=== PATIENT | male | born 1950 | race American Indian/Alaskan Native ===

== ENCOUNTER 2019-09-02 04:56 | Inpatient (IN) | payer MEDICARE ==
[2019-09-02 05:47] LABS: ABG Base Excess -4.4 mmol/L (-2.0-3.0); ABG HCO3 19.2 mmol/L (20.0-26.0); ABG Methemoglobin 0.5 % (0.0-1.5); ABG Oxygen Saturation 97.2 % (95.0-99.0); ABG PCO2 30.6 mm Hg; ABG PH 7.415 pH Units (7.350-7.450); ABG PO2 86.9 mm Hg (80.0-90.0)
[2019-09-02] MEDS ORDERED: SODIUM CHLORIDE 0.9% 1000 ML 1,000 ML IV ONE (06:58)
[2019-09-02] MEDS ORDERED: methylPREDNISolone Sod Succinate 125 MG/2 ML INJ IV ONE (06:58)
[2019-09-02] MEDS ORDERED: MAGNESIUM SULFATE 2 GM/50 ML BAG IV ONE (06:58)
[2019-09-02] MEDS ORDERED: IPRATROPIUM/ALBUTEROL SULFATE 3 ML AMPUL.NEB IH ONE (06:58)
--- NOTE | 2019-09-02 07:57 | XRay Report ---
CHEST 1 VIEW 09/02/2019 6:50 AM INDICATION / CLINICAL INFORMATION: LEAH. COMPARISON: None available. FINDINGS: SUPPORT DEVICES: Left subclavian ICD lead has tip in right ventricle HEART / MEDIASTINUM: Moderately enlarged LUNGS / PLEURA: Bilateral parenchymal disease with several rounded pulmonary opacities the left lung may be infectious/inflammatory, however, neoplasm cannot be excluded. No pneumothorax. ADDITIONAL FINDINGS: No significant additional findings. IMPRESSION: 1. Bilateral pulmonary opacities, some of which appear nodular. Favor pneumonia, however, neoplasm ca nnot be excluded. Chest CT or serial x-ray follow-up recommended Signer Name: Rodolfo Encarnacion MD Signed: 09/02/2019 7:53 AM Workstation Name: [id number]
[2019-09-02 08:08] LABS: Basophils % (Auto) 0.6 % (0.0-1.8); Eosinophils % (Auto) 0.1 % (0.0-4.3); Hematocrit 33.8 % (35.5-45.6); Hemoglobin 10.7 gm/dl (11.8-15.2); Lymphocytes # (Auto) 0.5 K/mm3 (1.2-5.4); Lymphocytes % (Auto) 9.3 % (13.4-35.0); Mean Corpuscular HGB Conc 32 % (32-34); Mean Corpuscular Volume 82 fl (84-94); Monocytes # (Auto) 0.4 K/mm3 (0.0-0.8); Monocytes % (Auto) 6.9 % (0.0-7.3); Platelet Count 208 K/mm3 (140-440); Red Blood Count 4.13 M/mm3 (3.65-5.03); Red Cell Distribution Width 18.1 % (13.2-15.2)
[2019-09-02 08:22] LABS: INR 2.1 (0.87-1.13)
[2019-09-02 08:35] LABS: BUN/Creatinine Ratio 21; Blood Urea Nitrogen 25 mg/dL (9-20); Calcium 9.5 mg/dL (8.4-10.2); Hemolysis Index 0
--- NOTE | 2019-09-02 08:56 | Emergency Department Report ---
ED General Adult HPI - General Chief complaint: Dyspnea/Respdistress Stated complaint: LEAH Time Seen by Provider: 09/02/19 06:55 Source: patient, EMS Mode of arrival: Stretcher Limitations: No Limitations - History of Present Illness Initial comments: This is a 69-year-old man who is a poor historian. However, he can tell me that he is on home nebs and oxygen. He called EMS due to respiratory difficulty. I assume he was on oxygen when they found him to have a pulse oximetry of 88%. They gave him a single albuterol treatment and transported him to this facility. He tells me that he is recently had sputum production which is white in nature. He does not complain of chest pain or fever. He thinks he may have had chills. He did improve with the albuterol treatment. It seems that he is saying that he may have had a recent hospitalization. However he is new to this facility. -: Gradual, hour(s) Associated Symptoms: cough - Related Data Allergies Allergy/AdvReac Type Severity Reaction Status Date / Time No Known Allergies Allergy Unverified 09/02/19 05:22 ED Review of Systems ROS: Stated complaint: LEAH Other details as noted in HPI Constitutional: chills. denies: fever Eyes: denies: eye pain, eye discharge, vision change ENT: denies: ear pain, throat pain Respiratory: denies: cough, shortness of breath, wheezing Cardiovascular: denies: chest pain, palpitations Endocrine: no symptoms reported Gastrointestinal: denies: abdominal pain, nausea, diarrhea Genitourinary: denies: urgency, dysuria Musculoskeletal: denies: back pain, joint swelling, arthralgia Skin: denies: rash, lesions Neurological: denies: headache, weakness, paresthesias Psychiatric: denies: anxiety, depression Hematological/Lymphatic: denies: easy bleeding, easy bruising ED Past Medical Hx - Past Medical History Previous Medical History?: Yes Hx Hypertension: Yes Hx Heart Attack/AMI: Yes Hx Congestive Heart Failure: Yes Hx Diabetes: Yes Hx COPD: Yes Additional medical history: High Cholesterol, Afib, with pacemaker - Surgical History Past Surgical History?: Yes Additional Surgical History: pacemaker - Social History Smoking Status: Former Smoker Substance Use Type: None ED Physical Exam - General Limitations: No Limitations General appearance: alert, in no apparent distress - Head Head exam: Present: atraumatic, normocephalic - Eye Eye exam: Present: normal appearance. Absent: scleral icterus - ENT ENT exam: Present: mucous membranes moist - Neck Neck exam: Present: normal inspection - Respiratory Respiratory exam: Present: decreased breath sounds (Somewhat distant). Absent: respiratory distress, accessory muscle use - Cardiovascular Cardiovascular Exam: Present: regular rate, normal rhythm. Absent: systolic murmur, diastolic murmur, rubs, gallop - GI/Abdominal GI/Abdominal exam: Present: soft, normal bowel sounds. Absent: distended, tenderness, guarding, rebound - Rectal Rectal exam: Present: deferred - Extremities Exam Extremities exam: Present: normal inspection. Absent: calf tenderness - Back Exam Back exam: Present: normal inspection - Neurological Exam Neurological exam: Present: alert, oriented X3 - Psychiatric Psychiatric exam: Present: normal affect, normal mood - Skin Skin exam: Present: warm, dry, intact, normal color. Absent: rash ED Course Vital Signs 09/02/19 09/02/19 09/02/19 05:05 05:13 05:15 Temperature 98.8 F Pulse Rate 88 83 Respiratory 21 16 Rate Blood Pressure 101/66 101/66 Blood Pressure 101/66 [Right] O2 Sat by Pulse 97 97 98 Oximetry 09/02/19 09/02/19 05:18 07:30 Temperature Pulse Rate 64 Respiratory 21 28 H Rate Blood Pressure Blood Pressure 104/62 [Right] O2 Sat by Pulse 2 L 95 Oximetry ED Medical Decision Making - Lab Data Result diagrams: 09/02/19 07:23 09/02/19 09:33 Laboratory Results - last 24 hr 09/02/19 09/02/19 09/02/19 05:30 07:23 07:23 WBC 5.8 RBC 4.13 Hgb 10.7 L Hct 33.8 L MCV 82 L MCH 26 L MCHC 32 RDW 18.1 H Plt Count 208 Lymph % (Auto) 9.3 L [place] % (Auto) 6.9 Eos % (Auto) 0.1 Baso % (Auto) 0.6 Lymph # 0.5 L [place] # 0.4 Eos # 0.0 Baso # 0.0 Seg Neutrophils % 83.1 H Seg Neutrophils # 4.8 PT INR APTT ABG pH 7.415 ABG pCO2 30.6 ABG pO2 86.9 ABG HCO3 19.2 L ABG O2 Saturation 97.2 ABG O2 Content 15.2 ABG Base Excess -4.4 L ABG Hemoglobin 11.3 L ABG Carboxyhemoglobin 2.3 ABG Methemoglobin 0.5 Oxyhemoglobin 94.5 L FiO2 32 Sodium 141 Potassium 5.0 Chloride 106.7 Carbon Dioxide 21 L Anion Gap 18 BUN 25 H Creatinine 1.2 Estimated GFR > 60 BUN/Creatinine Ratio 21 Glucose 119 H Calcium 9.5 Troponin T NT-Pro-B Natriuret Pep 09/02/19 09/02/19 07:23 07:23 WBC RBC Hgb Hct MCV MCH MCHC RDW Plt Count Lymph % (Auto) [place] % (Auto) Eos % (Auto) Baso % (Auto) Lymph # [place] # Eos # Baso # Seg Neutrophils % Seg Neutrophils # PT 23.0 H INR 2.10 H APTT 33.0 ABG pH ABG pCO2 ABG pO2 ABG HCO3 ABG O2 Saturation ABG O2 Content ABG Base Excess ABG Hemoglobin ABG Carboxyhemoglobin ABG Methemoglobin Oxyhemoglobin FiO2 Sodium Potassium Chloride Carbon Dioxide Anion Gap BUN Creatinine Estimated GFR BUN/Creatinine Ratio Glucose Calcium Troponin T < 0.010 NT-Pro-B Natriuret Pep H - EKG Data -: EKG Interpreted by Me EKG shows normal: sinus rhythm, axis, intervals, QRS complexes, ST-T waves Rate: tachycardia - EKG Data Interpretation: no acute changes - Radiology Data Radiology results: report reviewed, image reviewed IMPRESSION: 1. Bilateral pulmonary opacities, some of which appear nodular. Favor pneumonia, however, neoplasm cannot be excluded. Chest CT or serial x-ray follow-up recommended - Medical Decision Making I do agree with the radiologist that the infiltrates are somewhat nodular. However I think COVID infection is on the list as well. The patient is now under investigation. A CT with contrast has been ordered. He was treated empirically with antibiotics and admitted to the hospital service in stable condition. Critical care attestation.: If time is entered above; I have spent that time in minutes in the direct care of this critically ill patient, excluding procedure time. ED Disposition Clinical Impression: Person under investigation for COVID-19 Bilateral pneumonia Qualifiers: Pneumonia type: due to unspecified organism Lung location: unspecified part of lung Qualified Code(s): J18.9 - Pneumonia, unspecified organism Disposition: OP ADMIT IP TO THIS HOSP Is pt being admited?: Yes Does the pt Need Aspirin: Yes Condition: Stable Instructions: Bacterial Pneumonia (ED) Referrals: PRIMARY CARE, [Primary Care Provider] - 3-5 Days Time of Disposition: 12:32
[2019-09-02] MEDS ORDERED: cefTRIAXone/NS 1 GM/50 ML 1 GM/50 ML BAG IV ONE ×2 (08:59→13:58)
[2019-09-02] MEDS ORDERED: AZITHROMYCIN 500 MG in SODIUM CHLORIDE 0.9% 250ML 250 ML IV ONE (09:30)
[2019-09-02 10:57] LABS: Bilirubin,Direct 0.9 mg/dL (0-0.2); C-Reactive Protein 3.8 mg/dL (0.00-1.30)
[2019-09-02] MEDS ORDERED: ASPIRIN 81 MG TAB CHEW PO ONE (12:32)
--- NOTE | 2019-09-02 15:05 | Cat Scan Report ---
CT chest w con INDICATION: infiltrates uncertain origin 100 ML OMNI 300 . TECHNIQUE: All CT scans at this location are performed using the following dose modulation technique: Automated exposure control. Helical slices were obtained through the chest. Intravenous contrast is administere d. 100 cc Omnipaque 300 is administered. COMPARISON: Chest radiograph dated 09/02/2019 FINDINGS: There is a small to moderate right pleural effusion. There are bilateral airspace opacities most prom inent in the right upper lobe there is consolidation. Groundglass opacities are noted bilaterally kenrick undglass opacities are prominent in the lower lobes. The heart is enlarged. There is mediastinal matias opathy. Enlarged right paratracheal, left periaortic, left paratracheal subcarinal lymph nodes. No acute abnormality is seen in the upper abdomen. There is a small pericardial effusion in the right . IMPRESSION: There are bilateral airspace opacities with cardiomegaly and right pleural effusion. All these findin gs could be related to congestive heart failure. However there is a consolidation with patchy groundg lass opacities. Therefore, the possibility this represents a pneumonia including viral pneumonia is m ore strongly considered. There is mediastinal adenopathy is not specific. These may be reactive nodes. The largest measures ap proximately 14 mm in the short axis right paratracheal location. Signer Name: Torey Cooper MD Signed: 09/02/2019 3:00 PM Workstation Name: [id number]
[2019-09-02] MEDS ORDERED: LORazepam 2 MG/ML VIAL IV ONE (18:07)
[2019-09-02] MEDS ORDERED: LORazepam 2 MG/ML VIAL ONE (18:13)
--- NOTE | 2019-09-03 00:03 | History and Physical Report ---
History of Present Illness Date of examination: 09/02/19 Date of admission: 09/02/19 13:27 Chief complaint: Shortness of breath for 2 days History of present illness: 69-year-old man with history of COPD on home oxygen called EMS for increasing shortness of breath. His O2 sats were 88% on 2 L nasal cannula oxygen. Patient was given albuterol treatment with no relief. Patient also has been having cough with mucoid sputum production. No fever or chills. No exposure to coronavirus. No exacerbating or relieving factors. Past Medical History Previous Medical History?: Yes Hx Hypertension: Yes Hx Heart Attack/AMI: Yes Hx Congestive Heart Failure: Yes Hx Diabetes: Yes Hx COPD: Yes Additional medical history: High Cholesterol, Afib, with pacemaker Surgical History Past Surgical History?: Yes Additional Surgical History: pacemaker Social History Smoking Status: Former Smoker Substance Use Type: None Family history Htn Review of Systems ROS: Stated complaint: LEAH Other details as noted in HPI Constitutional: chills. denies: fever Eyes: denies: eye pain, eye discharge, vision change ENT: denies: ear pain, throat pain Respiratory: denies: cough, shortness of breath, wheezing Cardiovascular: denies: chest pain, palpitations Endocrine: no symptoms reported Gastrointestinal: denies: abdominal pain, nausea, diarrhea Genitourinary: denies: urgency, dysuria Musculoskeletal: denies: back pain, joint swelling, arthralgia Skin: denies: rash, lesions Neurological: denies: headache, weakness, paresthesias Psychiatric: denies: anxiety, depression Hematological/Lymphatic: denies: easy bleeding, easy bruising Medications and Allergies Allergies Allergy/AdvReac Type Severity Reaction Status Date / Time No Known Allergies Allergy Unverified 09/02/19 05:22 Exam - Constitutional Vitals: Temp Pulse Resp BP Pulse Ox 98.8 F 88 22 134/88 96 09/02/19 05:13 09/02/19 17:32 09/02/19 17:32 09/02/19 17:32 09/02/19 17:32 General appearance: Present: mild distress, well-nourished - EENT Eyes: Present: PERRL ENT: hearing intact, clear oral mucosa - Neck Neck: Present: supple, normal ROM - Respiratory Respiratory effort: normal Respiratory: bilateral: diminished, rales, rhonchi - Cardiovascular Heart rate: 82 Rhythm: regular Heart Sounds: Present: S1 & S2. Absent: rub, click - Extremities Extremities: no ischemia, pulses intact, pulses symmetrical, No edema Peripheral Pulses: within normal limits - Abdominal General gastrointestinal: Present: soft, non-tender, non-distended, normal bowel sounds Male genitourinary: Present: normal - Integumentary Integumentary: Present: clear, warm, dry - Musculoskeletal Musculoskeletal: gait normal, strength equal bilaterally - Psychiatric Psychiatric: appropriate mood/affect, intact judgment & insight - Neurologic Neurologic: CNII-XII intact, moves all extremities - Allied Health Allied health notes reviewed: nursing, case management HEART Score - HEART Score Troponin: Troponin T < 0.010 ng/mL (0.00-0.029) 09/02/19 07:23 Results - Labs CBC & Chem 7: 09/03/19 04:25 09/03/19 00:47 Labs: Laboratory Last Values WBC 5.8 K/mm3 (4.5-11.0) 09/02/19 07:23 RBC 4.13 M/mm3 (3.65-5.03) 09/02/19 07:23 Hgb 10.7 gm/dl (11.8-15.2) L 09/02/19 07:23 Hct 33.8 % (35.5-45.6) L 09/02/19 07:23 MCV 82 fl (84-94) L 09/02/19 07:23 MCH 26 pg (28-32) L 09/02/19 07:23 MCHC 32 % (32-34) 09/02/19 07:23 RDW 18.1 % (13.2-15.2) H 09/02/19 07:23 Plt Count 208 K/mm3 (140-440) 09/02/19 07:23 Lymph % (Auto) 9.3 % (13.4-35.0) L 09/02/19 07:23 [place] % (Auto) 6.9 % (0.0-7.3) 09/02/19 07:23 Eos % (Auto) 0.1 % (0.0-4.3) 09/02/19 07:23 Baso % (Auto) 0.6 % (0.0-1.8) 09/02/19 07:23 Lymph # 0.5 K/mm3 (1.2-5.4) L 09/02/19 07:23 [place] # 0.4 K/mm3 (0.0-0.8) 09/02/19 07:23 Eos # 0.0 K/mm3 (0.0-0.4) 09/02/19 07:23 Baso # 0.0 K/mm3 (0.0-0.1) 09/02/19 07:23 Seg Neutrophils % 83.1 % (40.0-70.0) H 09/02/19 07:23 Seg Neutrophils # 4.8 K/mm3 (1.8-7.7) 09/02/19 07:23 PT 23.0 Sec. (12.2-14.9) H 09/02/19 07: INR 2.10 (0.87-1.13) H 09/02/19 07: APTT 33.0 Sec. (24.2-36.6) 09/02/19 07:23 D-Dimer 689.74 ng/mlDDU (0-234) H 09/02/19 Unknown ABG pH 7.415 pH Units (7.350-7.450) 09/02/19 05:30 ABG pCO2 30.6 mm Hg 09/02/19 05:30 ABG pO2 86.9 mm Hg (80.0-90.0) 09/02/19 05:30 ABG HCO3 19.2 mmol/L (20.0-26.0) L 09/02/19 05:30 ABG O2 Saturation 97.2 % (95.0-99.0) 09/02/19 05:30 ABG O2 Content 15.2 (0.0-44) 09/02/19 05:30 ABG Base Excess -4.4 mmol/L (-2.0-3.0) L 09/02/19 05:30 ABG Hemoglobin 11.3 gm/dl (14.0-18.0) L 09/02/19 05:30 ABG Carboxyhemoglobin 2.3 % (0.0-5.0) 09/02/19 05:30 ABG Methemoglobin 0.5 % (0.0-1.5) 09/02/19 05:30 Oxyhemoglobin 94.5 % (95.0-99.0) L 09/02/19 05:30 FiO2 32 % 09/02/19 05:30 Sodium 141 mmol/L (137-145) 09/02/19 07:23 Potassium 5.0 mmol/L (3.6-5.0) 09/02/19 07:23 Chloride 106.7 mmol/L (98-107) 09/02/19 07:23 Carbon Dioxide 21 mmol/L (22-30) L 09/02/19 07:23 Anion Gap 18 mmol/L 09/02/19 07:23 BUN 25 mg/dL (9-20) H 09/02/19 07:23 Creatinine 1.2 mg/dL (0.8-1.5) 09/02/19 07:23 Estimated GFR > 60 ml/min 09/02/19 07:23 BUN/Creatinine Ratio 21 % 09/02/19 07:23 Glucose 123 mg/dL (75-100) H 09/02/19 09:33 Lactic Acid 1.90 mmol/L (0.7-2.0) 09/02/19 09:33 Calcium 9.5 mg/dL (8.4-10.2) 09/02/19 07:23 Ferritin 252.7 ng/mL (13.0-400.0) 09/02/19 09:33 Total Bilirubin 3.00 mg/dL (0.1-1.2) H 09/02/19 09:33 Direct Bilirubin 0.9 mg/dL (0-0.2) H 09/02/19 09:33 Indirect Bilirubin 2.1 mg/dL 09/02/19 09:33 AST 43 units/L (5-40) H 09/02/19 09:33 ALT 53 units/L (7-56) 09/02/19 09:33 Alkaline Phosphatase 116 units/L (35-129) 09/02/19 09:33 Lactate Dehydrogenase 252 units/L (91-180) H 09/02/19 09:33 Troponin T < 0.010 ng/mL (0.00-0.029) 09/02/19 07:23 C-Reactive Protein 3.80 mg/dL (0.00-1.30) H 09/02/19 09:33 NT-Pro-B Natriuret Pep 21917 pg/mL (0-900) H 09/02/19 07:23 Total Protein 6.6 g/dL (6.3-8.2) 09/02/19 09:33 Albumin 3.0 g/dL (3.9-5) L 09/02/19 09:33 Albumin/Globulin Ratio 0.8 % 09/02/19 09:33 Procalcitonin < 0.05 ng/mL (<0.15) 09/02/19 09:33 Short CBC 09/02/19 Range/Units 07:23 WBC 5.8 (4.5-11.0) K/mm3 Hgb 10.7 L (11.8-15.2) gm/dl Hct 33.8 L (35.5-45.6) % Plt Count 208 (140-440) K/mm3 [facility] 09/02/19 09/02/19 07:23 09:33 Sodium 141 Potassium 5.0 Chloride 106.7 Carbon Dioxide 21 L BUN 25 H Creatinine 1.2 Glucose 119 H 123 H Calcium 9.5 Cardiac Enzymes 09/02/19 Range/Units 07: Troponin T < 0.010 (0.00-0.029) ng/mL Liver Function 09/02/19 Range/Units 09:33 Total Bilirubin 3.00 H (0.1-1.2) mg/dL Direct Bilirubin 0.9 H (0-0.2) mg/dL AST 43 H (5-40) units/L ALT 53 (7-56) units/L Alkaline Phosphatase 116 (35-129) units/L Albumin 3.0 L (3.9-5) g/dL Short CBC 09/02/19 09/03/19 Range/Units 07:23 04:25 WBC 5.8 5.0 (4.5-11.0) K/mm3 Hgb 10.7 L 11.2 L (11.8-15.2) gm/dl Hct 33.8 L 35.5 (35.5-45.6) % Plt Count 208 201 (140-440) K/mm3 [facility] 09/02/19 09/02/19 09/03/19 07:23 09:33 00:47 Sodium 141 135 L Potassium 5.0 4.4 Chloride 106.7 104.6 Carbon Dioxide 21 L 20 L BUN 25 H 27 H Creatinine 1.2 1.0 Glucose 119 H 123 H 157 H Calcium 9.5 9.2 Cardiac Enzymes 09/02/19 Range/Units 07:23 Troponin T < 0.010 (0.00-0.029) ng/mL Liver Function 09/02/19 09/03/19 Range/Units 09:33 00:47 Total Bilirubin 3.00 H 1.70 H (0.1-1.2) mg/dL Direct Bilirubin 0.9 H (0-0.2) mg/dL AST 43 H 29 (5-40) units/L ALT 53 41 (7-56) units/L Alkaline Phosphatase 116 92 (35-129) units/L Albumin 3.0 L 2.5 L (3.9-5) g/dL Microbiology: Microbiology 09/02/19 Unknown Peripheral/Venous Blood Culture - Preliminary Culture in Progress 09/02/19 Unknown Peripheral/Venous Blood Culture - Preliminary Culture in Progress - Imaging and Cardiology EKG: report reviewed Imaging and Cardiology: Chest x-ray Bilateral pulmonary opacities some of, which tappear nodular Favor pneumonia however neoplasm cannot be excluded Chest CT or serial x-ray follow-up recommended CT chest There are bilateral airspace opacities With cardiomegaly and right pleural effusion. All these findings could be related to congestive heart failure. However there is a consolidation with patchy groundglass opacities. Therefore the possibility this represents a pneumonia including viral pneumonia is most commonly considered. There is mediastinal adenopathy which is nonspecific. This may be reactive nodes. The largest measures approximately 14 mm in the short axis and right paratracheal location. Assessment and Plan Advance Directives: Yes (Full code) VTE prophylaxis?: Chemical Plan of care discussed with patient/family: Yes - Patient Problems (1) Bilateral pneumonia Current Visit: Yes Status: Acute Qualifiers: Pneumonia type: due to unspecified organism Lung location: unspecified part of lung Qualified Code(s): J18.9 - Pneumonia, unspecified organism Plan to address problem: Patient initiated on IV Rocephin and Zithromax Duo nebs Coronavirus to be ruled out Bilateral pneumonia Inflammatory markers ordered (2) Person under investigation for COVID-19 Current Visit: Yes Status: Acute Plan to address problem: Coronavirus PCR 4 AM (3) COPD exacerbation Current Visit: Yes Status: Acute Plan to address problem: Duo nebs and steroids and IV antibiotics (4) Hypertension Current Visit: Yes Status: Chronic Qualifiers: Hypertension type: essential hypertension Qualified Code(s): I10 - Essential (primary) hypertension Plan to address problem: Continue antihypertensives and adjust medications as necessary (5) CHF (congestive heart failure) Current Visit: Yes Status: Chronic Qualifiers: Heart failure type: combined systolic and diastolic Heart failure chronicity: chronic Qualified Code(s): I50.42 - Chronic combined systolic (congestive) and diastolic (congestive) heart failure Plan to address problem: Continue Lasix (6) Type 2 diabetes mellitus Current Visit: Yes Status: Chronic Qualifiers: Diabetes mellitus fpc insulin use: unspecified fpc insulin use status Plan to address problem: Accu-Cheks AC at bedtime and moderate dose sliding scale coverage Check hemoglobin A1c (7) Coronary artery disease Current Visit: Yes Status: Chronic Qualifiers: Coronary Disease-Associated Artery/Lesion type: [place] artery [place] vs. transplanted heart: [place] heart Plan to address problem: Continue Plavix (8) DVT prophylaxis Current Visit: Yes Status: Acute Plan to address problem: On Lovenox 40 mg subcu every 24 and GI prophylaxis
[2019-09-03] MEDS ORDERED: HYDROmorphone 1 MG/1 ML INJ IV PRN (00:06)
[2019-09-03] MEDS ORDERED: oxyCODONE /ACETAMINOPHEN 5-325MG TAB PO PRN (00:06)
[2019-09-03] MEDS ORDERED: ONDANSETRON 4 MG/2 ML INJ IV PRN (00:06)
[2019-09-03] MEDS ORDERED: AZITHROMYCIN 500 MG in SODIUM CHLORIDE 0.9% 250ML 250 ML IV SCH (00:10)
[2019-09-03] MEDS ORDERED: dexAMETHasone 4 MG/ML VIAL IV SCH (01:00)
[2019-09-03] MEDS ORDERED: POTASSIUM CHLORIDE ER 20 MEQ TAB PO SCH (01:00)
[2019-09-03 01:36] LABS: Alanine Aminotransferase 41 units/L (7-56); Albumin 2.5 g/dL (3.9-5); BUN/Creatinine Ratio 27; Blood Urea Nitrogen 27 mg/dL (9-20); Calcium 9.2 mg/dL (8.4-10.2); Hemolysis Index 1
[2019-09-03 04:43] LABS: Basophils % (Auto) 0.1 % (0.0-1.8); Hematocrit 35.5 % (35.5-45.6); Hemoglobin 11.2 gm/dl (11.8-15.2); Lymphocytes # (Auto) 0.4 K/mm3 (1.2-5.4); Lymphocytes % (Auto) 8.3 % (13.4-35.0); Mean Corpuscular HGB Conc 31 % (32-34); Mean Corpuscular Volume 83 fl (84-94); Monocytes # (Auto) 0.1 K/mm3 (0.0-0.8); Monocytes % (Auto) 2.5 % (0.0-7.3); Platelet Count 201 K/mm3 (140-440); Red Cell Distribution Width 17.9 % (13.2-15.2)
[2019-09-03] MEDS: FUROSEMIDE 40 MG/4 ML INJ IV SCH ×2 (06:30→18:54)
[2019-09-03] MEDS ORDERED: FUROSEMIDE 40 MG/4 ML INJ ONE ×2 (06:52→18:41)
[2019-09-03] MEDS ORDERED: cefTRIAXone/NS 2 GM/100 ML 2 GM/100 ML BAG IV ONE (09:24)
[2019-09-03] MEDS ORDERED: DEXAMETHASONE 4 MG TAB ONE (09:25)
[2019-09-03] MEDS ORDERED: LOSARTAN 50 MG TAB ONE (09:25)
[2019-09-03] MEDS ORDERED: FAMOTIDINE 20 MG TAB ONE ×2 (09:25→22:15)
[2019-09-03] MEDS ORDERED: oxyCODONE /ACETAMINOPHEN 5-325MG TAB ONE (09:26)
[2019-09-03] MEDS: INSULIN LISPRO 100 UNIT/ML SUB-Q SCH ×4 (09:36→22:21)
[2019-09-03] MEDS: LOSARTAN 50 MG TAB PO SCH (09:36)
[2019-09-03] MEDS: DEXAMETHASONE 4 MG TAB PO SCH (09:37)
[2019-09-03] MEDS: FAMOTIDINE 20 MG TAB PO SCH ×2 (09:37→22:21)
[2019-09-03] MEDS: cefTRIAXone/NS 2 GM/100 ML 2 GM/100 ML BAG IV SCH (10:48)
[2019-09-03] MEDS ORDERED: INSULIN REGULAR, HUMAN 100 UNITS/1 ML ONE (12:21)
--- NOTE | 2019-09-03 12:38 | Progress Note ---
Assessment and Plan Assessment and plan: --COVID 19 test negative -- Bilateral pneumonia Current Visit: Yes Status: Acute Continue IV Rocephin and Zithromax Duo nebs, COVID-19 negative Oxygen titrate O2 sats to more than 90% --PUI/ COVID-19 test negative Current Visit: Yes Status: Acute Coronavirus PCR negative --Acute exacerbation of COPD ; Current Visit: Yes Status: Acute Duo nebs and steroids and IV antibiotics Oxygen titrate O2 sats to more than 90% Home oxygen evaluation at discharge -- Hypertension Current Visit: Yes Status: Chronic Continue antihypertensives and PRN antihypertensives --Acute on chronic CHF,unknown ejection fraction Current Visit: Yes Status: Chronic Continue Lasix input output monitoring,, low-sodium diet Fluid restriction, echocardiogram for LV function ejection fraction --Type 2 diabetes mellitus Current Visit: Yes Status: Chronic Accu-Cheks adding scale coverage ADA diet insulin as needed, A1c; 6.2 --Coronary artery disease Current Visit: Yes Status: Chronic Continue current cardiac medications --DVT prophylaxis Current Visit: Yes Status: Acute On Lovenox 40 mg subcu every 24 and GI prophylaxis Monitor closely and adjust the management as needed Plan of care reviewed with the patient and his nurse Possible discharge in 1 to 2 days if stable History Interval history: Patient seen and examined at the bedside in the ER awaiting room assignment Isolation precautions and PPE protocols followed Patient is PUI, high suspicion for COVID-19, novoa virus PCR test sent, pending report Patient complains of mild shortness of breath and generalized weakness In mild distress Vital signs noted Hospitalist Physical - Constitutional Vitals: Temp Pulse Resp BP Pulse Ox 98.8 F 81 16 107/70 94 09/02/19 05:13 09/03/19 10:30 09/03/19 10:30 09/03/19 09:36 09/03/19 10:30 General appearance: Present: mild distress, well-nourished - EENT Eyes: Present: PERRL, EOM intact - Neck Neck: Present: supple, normal ROM - Respiratory Respiratory effort: normal Respiratory: bilateral: diminished, rales, negative: rhonchi, wheezing - Cardiovascular Rhythm: regular Heart Sounds: Present: S1 & S2 - Extremities Extremities: no ischemia, No edema - Abdominal General gastrointestinal: soft, non-tender, non-distended, normal bowel sounds - Integumentary Integumentary: Present: clear, warm - Psychiatric Psychiatric: appropriate mood/affect, cooperative - Neurologic Neurologic: moves all extremities HEART Score - HEART Score Troponin: Troponin T < 0.010 ng/mL (0.00-0.029) 09/02/19 07:23 Results - Labs CBC & Chem 7: 09/04/19 03:26 09/04/19 03:26 Labs: Laboratory Last Values WBC 5.0 K/mm3 (4.5-11.0) 09/03/19 04:25 RBC 4.30 M/mm3 (3.65-5.03) 09/03/19 04:25 Hgb 11.2 gm/dl (11.8-15.2) L 09/03/19 04:25 Hct 35.5 % (35.5-45.6) 09/03/19 04:25 MCV 83 fl (84-94) L 09/03/19 04:25 MCH 26 pg (28-32) L 09/03/19 04:25 MCHC 31 % (32-34) L 09/03/19 04:25 RDW 17.9 % (13.2-15.2) H 09/03/19 04:25 Plt Count 201 K/mm3 (140-440) 09/03/19 04:25 Lymph % (Auto) 8.3 % (13.4-35.0) L 09/03/19 04:25 [place]oshone % (Auto) 2.5 % (0.0-7.3) 09/03/19 04:25 Eos % (Auto) 0.0 % (0.0-4.3) 09/03/19 04:25 Baso % (Auto) 0.1 % (0.0-1.8) 09/03/19 04:25 Lymph # 0.4 K/mm3 (1.2-5.4) L 09/03/19 04:25 Shoshone # 0.1 K/mm3 (0.0-0.8) 09/03/19 04:25 Eos # 0.0 K/mm3 (0.0-0.4) 09/03/19 04:25 Baso # 0.0 K/mm3 (0.0-0.1) 09/03/19 04:25 Seg Neutrophils % 89.1 % (40.0-70.0) H 09/03/19 04:25 Seg Neutrophils # 4.4 K/mm3 (1.8-7.7) 09/03/19 04:25 PT 23.0 Sec. (12.2-14.9) H 09/02/19 07:23 INR 2.10 (0.87-1.13) H 09/02/19 07:23 APTT 33.0 Sec. (24.2-36.6) 09/02/19 07:23 D-Dimer 689.74 ng/mlDDU (0-234) H 09/02/19 Unknown ABG pH 7.415 pH Units (7.350-7.450) 09/02/19 05:30 ABG pCO2 30.6 mm Hg 09/02/19 05:30 ABG pO2 86.9 mm Hg (80.0-90.0) 09/02/19 05:30 ABG HCO3 19.2 mmol/L (20.0-26.0) L 09/02/19 05:30 ABG O2 Saturation 97.2 % (95.0-99.0) 09/02/19 05:30 ABG O2 Content 15.2 (0.0-44) 09/02/19 05:30 ABG Base Excess -4.4 mmol/L (-2.0-3.0) L 09/02/19 05:30 ABG Hemoglobin 11.3 gm/dl (14.0-18.0) L 09/02/19 05:30 ABG Carboxyhemoglobin 2.3 % (0.0-5.0) 09/02/19 05:30 ABG Methemoglobin 0.5 % (0.0-1.5) 09/02/19 05:30 Oxyhemoglobin 94.5 % (95.0-99.0) L 09/02/19 05:30 FiO2 32 % 09/02/19 05:30 Sodium 135 mmol/L (137-145) L 09/03/19 00:47 Potassium 4.4 mmol/L (3.6-5.0) 09/03/19 00:47 Chloride 104.6 mmol/L (98-107) 09/03/19 00:47 Carbon Dioxide 20 mmol/L (22-30) L 09/03/19 00:47 Anion Gap 15 mmol/L 09/03/19 00:47 BUN 27 mg/dL (9-20) H 09/03/19 00:47 Creatinine 1.0 mg/dL (0.8-1.5) 09/03/19 00:47 Estimated GFR > 60 ml/min 09/03/19 00:47 BUN/Creatinine Ratio 27 % 09/03/19 00:47 Glucose 157 mg/dL (75-100) H 09/03/19 00:47 POC Glucose 125 (70-105) H 09/03/19 09:46 Hemoglobin A1c 6.2 % (4-6) H 09/03/19 04:25 Lactic Acid 1.90 mmol/L (0.7-2.0) 09/02/19 09:33 Calcium 9.2 mg/dL (8.4-10.2) 09/03/19 00:47 Ferritin 252.7 ng/mL (13.0-400.0) 09/02/19 09:33 Total Bilirubin 1.70 mg/dL (0.1-1.2) H 09/03/19 00:47 Direct Bilirubin 0.9 mg/dL (0-0.2) H 09/02/19 09:33 Indirect Bilirubin 2.1 mg/dL 09/02/19 09:33 AST 29 units/L (5-40) 09/03/19 00:47 ALT 41 units/L (7-56) 09/03/19 00:47 Alkaline Phosphatase 92 units/L (35-129) 09/03/19 00:47 Lactate Dehydrogenase 252 units/L (91-180) H 09/02/19 09:33 Troponin T < 0.010 ng/mL (0.00-0.029) 09/02/19 07:23 C-Reactive Protein 3.80 mg/dL (0.00-1.30) H 09/02/19 09:33 NT-Pro-B Natriuret Pep 83961 pg/mL (0-900) H 09/02/19 07:23 Total Protein 6.8 g/dL (6.3-8.2) 09/03/19 00:47 Albumin 2.5 g/dL (3.9-5) L 09/03/19 00:47 Albumin/Globulin Ratio 0.6 % 09/03/19 00:47 Procalcitonin < 0.05 ng/mL (<0.15) 09/02/19 09:33 Microbiology: Microbiology 09/02/19 Unknown Peripheral/Venous Blood Culture - Preliminary NO GROWTH AFTER 24 HOURS 09/02/19 Unknown Peripheral/Venous Blood Culture - Preliminary NO GROWTH AFTER 24 HOURS Estevez/IV: IV Catheter Type [Right Peripheral IV Forearm] IV Catheter Type [Left Peripheral IV Antecubital] Active Medications - Current Medications Current Medications: Generic Name Dose Route Start Last Admin Trade Name Freq PRN Reason Stop Dose Admin Acetaminophen 650 mg 09/03/19 00:06 Tylenol PO Q4H PRN Pain MILD(1-3)/Fever >100.5/BLANKENSHIP Azithromycin 500 mg 09/03/19 22:00 Zithromax PO QHS BANDAR Dexamethasone 6 mg 09/03/19 10:00 09/03/19 09:37 Decadron PO 6 mg DAILY BANDAR Administration Enoxaparin Sodium 40 mg 09/03/19 22:00 Enoxaparin SUB-Q QDAY@2200 BANDAR Famotidine 20 mg 09/03/19 10:00 09/03/19 09:37 Pepcid PO 20 mg BID BANDAR Administration Furosemide 40 mg 09/03/19 06:00 09/03/19 06:30 Lasix IV 40 mg 0600,1800 BANDAR Administration Hydromorphone HCl 0.5 mg 09/03/19 00:06 Dilaudid IV Q3H PRN Pain , Severe (7-10) Ceftriaxone Sodium 2 gm in 100 mls @ 200 mls/hr 09/03/19 10:00 09/03/19 11:18 Rocephin/Ns 2 Gm/100 Ml IV Infused Q24HR [facility] Infusion Protocol Insulin Human Lispro 0 unit 09/03/19 08:00 09/03/19 12:32 Humalog SUB-Q 2 unit ACHS BANDAR Administration Protocol Losartan Potassium 50 mg 09/03/19 10:00 09/03/19 09:36 Cozaar PO 50 mg QDAY BANDAR Administration Ondansetron HCl 4 mg 09/03/19 00:06 Zofran IV Q8H PRN Nausea And Vomiting Oxycodone/Acetaminophen 1 tab 09/03/19 00:06 09/03/19 09:37 Percocet 5/325 PO 1 tab Q6H PRN Administration Pain, Moderate (4-6) Potassium Chloride 20 meq 09/03/19 01:00 K-Dur PO Q12H ABNDAR Sodium Chloride 10 ml 09/03/19 10:00 09/03/19 10:48 Sodium Chloride Flush Syringe 10 Ml IV 10 ml BID BANDAR Administration Sodium Chloride 10 ml 09/03/19 00:06 Sodium Chloride Flush Syringe 10 Ml IV PRN PRN LINE FLUSH
[2019-09-03] MEDS ORDERED: INSULIN LISPRO 100 UNIT/ML SUB-Q ONE ×2 (16:21→22:13)
[2019-09-03] MEDS ORDERED: ENOXAPARIN 40 MG/0.4 ML INJ SUB-Q SCH (22:00)
[2019-09-03] MEDS ORDERED: AZITHROMYCIN 250 MG TAB ONE (22:15)
[2019-09-03] MEDS ORDERED: ENOXAPARIN 40 MG/0.4 ML INJ SUB-Q ONE (22:15)
[2019-09-03] MEDS: AZITHROMYCIN 250 MG TAB PO SCH (22:21)
[2019-09-04 05:00] LABS: Hematocrit 35.8 % (35.5-45.6); Hemoglobin 11.3 gm/dl (11.8-15.2); Mean Corpuscular HGB Conc 32 % (32-34); Mean Corpuscular Volume 82 fl (84-94); Platelet Count 223 K/mm3 (140-440); Red Blood Count 4.35 M/mm3 (3.65-5.03); Red Cell Distribution Width 18.4 % (13.2-15.2)
[2019-09-04] MEDS ORDERED: FUROSEMIDE 40 MG/4 ML INJ ONE ×2 (05:10→08:29)
[2019-09-04 05:19] LABS: BUN/Creatinine Ratio 29; Blood Urea Nitrogen 38 mg/dL (9-20); Hemolysis Index 0
[2019-09-04] MEDS: FUROSEMIDE 40 MG/4 ML INJ IV SCH ×2 (05:23→19:23)
[2019-09-04 06:18] LABS: Basophils % (Manual) 0 % (0.0-1.8); Eosinophils % (Manual) 0 % (0.0-4.3); Total Cells Counted 100
[2019-09-04 06:19] LABS: Anisocytosis 2+; Burr Cells 1+; Ovalocytes 2+; Poikilocytosis 3+
[2019-09-04 06:20] LABS: Schistocytes Few
[2019-09-04 06:21] LABS: Helmet Cells Few; Platelet Estimate Consistent w Auto
[2019-09-04] MEDS ORDERED: AMIODARONE 150 MG/3 ML INJ IV ONE ×2 (06:44→06:51)
[2019-09-04] MEDS ORDERED: AMIODARONE 150 MG in DEXTROSE 5% IN WATER 100 ML IV ONE (06:46)
[2019-09-04] MEDS ORDERED: AMIODARONE 900 MG in DEXTROSE 5% IN WATER 482 ML IV SCH (07:00)
[2019-09-04] MEDS ORDERED: FUROSEMIDE 40 MG/4 ML INJ IV ONE (07:04)
--- NOTE | 2019-09-04 07:08 | Event Note ---
Date: 09/04/19 69-year-old man who is an ER hold. I was called to assist nurses in his care. He was found to be in recurrent ventricular tachycardia. He has an AICD which has been firing. Patient was not in distress. He was bit tachypneic. Examination revealed runs of sustained V. tach. Patient was experiencing automatic cardioversion. He did look pale. Were unable to obtain a blood pressure but he had a strong radial pulse. The patient was given 150 mg of amiodarone. He was placed on amiodarone drip. He was placed in a critical care management area on a nonrebreather mask. I requested a [employer] interrogation of his pacemaker. I obtained a chest x-ray which was consistent with pulmonary edema. Patient was given an additional 20 mg of Lasix beyond this current dose. On reexamination the patient is maintaining a sinus rhythm largely. An EKG has been ordered. He is now clinically stable. Diagnostic impression Recurrent sustained ventricular tachycardia Congestive heart failure Plan Further care per hospitalist, cardiology, inpatient physicians. I am available should the patient have further critical care needs. Critical care time with this patient is 45 minutes.
--- NOTE | 2019-09-04 07:19 | XRay Report ---
CHEST 1 VIEW 09/04/2019 6:51 AM INDICATION / CLINICAL INFORMATION: VTach. COMPARISON: 09/02/2019 FINDINGS: SUPPORT DEVICES: Left subclavian ICD lead again projects over right ventricle HEART / MEDIASTINUM: Moderate cardiomegaly LUNGS / PLEURA: Multifocal moderate bilateral parenchymal disease, unchanged No pneumothorax. ADDITIONAL FINDINGS: No significant additional findings. IMPRESSION: 1. Cardiomegaly and moderate bilateral parenchymal disease characteristic for pneumonia, unchanged Signer Name: Rodolfo Encarnacion MD Signed: 09/04/2019 7:15 AM Workstation Name: [id number]
[2019-09-04] MEDS ORDERED: AMIODARONE 150 MG in DEXTROSE 5% IN WATER 97 ML IV ONE (07:30)
--- NOTE | 2019-09-04 08:41 | Progress Note ---
Assessment and Plan Assessment and plan: --COVID 19 test negative --Sustained VT; Patient was asymptomatic Amiodarone bolus followed by amiodarone drip per ER physician Continue home medications, Cardiology consult --Acute hypoxic respiratory failure: Multifactorial, CHF, COPD exacerbation BiPAP as needed, intubate if no improvement Pulmonary consult, informed Dr. Parmar Stat ABG --Acute on chronic systolic CHF, EF 15 to 20% Current Visit: Yes Status: Chronic Continue Lasix input output monitoring,, low-sodium diet Fluid restriction, echocardiogram for LV function ejection fraction. --History of A. fib; continue beta-blockers, amiodarone chronic anticoagulation with Eliquis --Severe cardiomyopathy/ICD Interrogation as needed, cardiology consulted, -- Bilateral pneumonia Current Visit: Yes Status: Acute . Continue IV Rocephin and Zithromax Duo nebs, COVID-19 negative Oxygen titrate O2 sats to more than 90%. --PUI/ COVID-19 test negative Current Visit: Yes Status: Acute Coronavirus PCR negative --Acute exacerbation of COPD ; Current Visit: Yes Status: Acute Duo nebs and steroids and IV antibiotics Oxygen titrate O2 sats to more than 90% Home oxygen evaluation at discharge -- Hypertension Current Visit: Yes Status: Chronic Continue antihypertensives and PRN antihypertensives --Type 2 diabetes mellitus Current Visit: Yes Status: Chronic Accu-Cheks adding scale coverage ADA diet insulin as needed, A1c; 6.2 --Coronary artery disease Current Visit: Yes Status: Chronic Continue current cardiac medications --DVT prophylaxis Current Visit: Yes Status: Acute On Eliquis --Full code: Status We will closely monitor the patient and adjust management as needed Patient has multiple comorbidities, poor prognosis The high probability of a clinically significant, sudden or life threatening deterioration of the [cardiac , infectious, metabolic and pulmonary] system(s) required my full and direct attention, intervention and personal management. The aggregate critical care time was [45] minutes. This time is in addition to time spent performing reported procedures but includes the following: [x] Data Review and interpretation [x] Patient assessment and monitoring of vital signs [x] Documentation [x] Medication orders and management History Interval history: I have seen the patient at bedside this morning Patient's chart overnight events reviewed Patient went into sustained VT, received amiodarone bolus And on amiodarone drip per ER physician Patient is short of breath, hypoxic in mild distress Vital signs reviewed Hospitalist Physical - Constitutional Vitals: Temp Pulse Resp BP Pulse Ox 98.4 F 91 H 41 H 116/77 88 09/04/19 01:45 09/04/19 06:31 09/04/19 06:31 09/04/19 06:31 09/04/19 06:31 General appearance: Present: mild distress, well-nourished, other (Agitated) - EENT Eyes: Present: PERRL, EOM intact - Neck Neck: Present: supple, normal ROM - Respiratory Respiratory effort: normal Respiratory: bilateral: diminished, rales, negative: rhonchi, wheezing - Cardiovascular Rhythm: regular Heart Sounds: Present: S1 & S2 - Extremities Extremities: no ischemia Extremity abnormal: edema (Trace) - Abdominal General gastrointestinal: soft, non-tender, non-distended, normal bowel sounds - Integumentary Integumentary: Present: clear, warm - Psychiatric Psychiatric: agitated - Neurologic Neurologic: moves all extremities HEART Score - HEART Score Troponin: Troponin T < 0.010 ng/mL (0.00-0.029) 09/02/19 07:23 Results - Labs CBC & Chem 7: 09/04/19 03:26 09/04/19 03:26 Labs: Laboratory Last Values WBC 11.3 K/mm3 (4.5-11.0) H 09/04/19 03:26 RBC 4.35 M/mm3 (3.65-5.03) 09/04/19 03:26 Hgb 11.3 gm/dl (11.8-15.2) L 09/04/19 03:26 Hct 35.8 % (35.5-45.6) 09/04/19 03:26 MCV 82 fl (84-94) L 09/04/19 03:26 MCH 26 pg (28-32) L 09/04/19 03:26 MCHC 32 % (32-34) 09/04/19 03:26 RDW 18.4 % (13.2-15.2) H 09/04/19 03:26 Plt Count 223 K/mm3 (140-440) 09/04/19 03:26 Lymph % (Auto) 8.3 % (13.4-35.0) L 09/03/19 04:25 [place] % (Auto) 2.5 % (0.0-7.3) 09/03/19 04:25 Eos % (Auto) 0.0 % (0.0-4.3) 09/03/19 04:25 Baso % (Auto) 0.1 % (0.0-1.8) 09/03/19 04:25 Lymph # 0.4 K/mm3 (1.2-5.4) L 09/03/19 04:25 [place] # 0.1 K/mm3 (0.0-0.8) 09/03/19 04:25 Eos # 0.0 K/mm3 (0.0-0.4) 09/03/19 04:25 Baso # 0.0 K/mm3 (0.0-0.1) 09/03/19 04:25 Add Manual Diff Complete 09/04/19 03:26 Total Counted 100 09/04/19 03:26 Seg Neutrophils % [employer]argo Specialist 09/04/19 03:26 Seg Neuts % (Manual) 90.0 % (40.0-70.0) H 09/04/19 03:26 Band Neutrophils % 0 % 09/04/19 03:26 Lymphocytes % (Manual) 4.0 % (13.4-35.0) L 09/04/19 03:26 Reactive Lymphs % (Man) 0 % 09/04/19 03:26 Monocytes % (Manual) 6.0 % (0.0-7.3) 09/04/19 03:26 Eosinophils % (Manual) 0 % (0.0-4.3) 09/04/19 03:26 Basophils % (Manual) 0 % (0.0-1.8) 09/04/19 03:26 Metamyelocytes % 0 % 09/04/19 03:26 Myelocytes % 0 % 09/04/19 03:26 Promyelocytes % 0 % 09/04/19 03:26 Blast Cells % 0 % 09/04/19 03:26 Nucleated RBC % Not Reportable 09/04/19 03:26 Seg Neutrophils # 4.4 K/mm3 (1.8-7.7) 09/03/19 04:25 Seg Neutrophils # Man 10.2 K/mm3 (1.8-7.7) H 09/04/19 03:26 Band Neutrophils # 0.0 K/mm3 09/04/19 03:26 Lymphocytes # (Manual) 0.5 K/mm3 (1.2-5.4) L 09/04/19 03:26 Abs React Lymphs (Man) 0.0 K/mm3 09/04/19 03:26 Monocytes # (Manual) 0.7 K/mm3 (0.0-0.8) 09/04/19 03:26 Eosinophils # (Manual) 0.0 K/mm3 (0.0-0.4) 09/04/19 03:26 Basophils # (Manual) 0.0 K/mm3 (0.0-0.1) 09/04/19 03:26 Metamyelocytes # 0.0 K/mm3 09/04/19 03:26 Myelocytes # 0.0 K/mm3 09/04/19 03:26 Promyelocytes # 0.0 K/mm3 09/04/19 03:26 Blast Cells # 0.0 K/mm3 09/04/19 03:26 WBC Morphology Not Reportable 09/04/19 03:26 Hypersegmented Neuts Not Reportable 09/04/19 03:26 Hyposegmented Neuts Not Reportable 09/04/19 03:26 Hypogranular Neuts Not Reportable 09/04/19 03:26 Smudge Cells Not Reportable 09/04/19 03:26 Toxic Granulation Not Reportable 09/04/19 03:26 Toxic Vacuolation Not Reportable 09/04/19 03:26 Dohle Bodies Not Reportable 09/04/19 03:26 Pelger-Huet Anomaly Not Reportable 09/04/19 03:26 Shirley Rods Not Reportable 09/04/19 03:26 Platelet Estimate Consistent w auto 09/04/19 03:26 Clumped Platelets Not Reportable 09/04/19 03:26 Plt Clumps, EDTA Not Reportable 09/04/19 03:26 Large Platelets Not Reportable 09/04/19 03:26 Giant Platelets Not Reportable 09/04/19 03:26 Platelet Satelliting Not Reportable 09/04/19 03:26 Plt Morphology Comment Not Reportable 09/04/19 03:26 RBC Morphology Not Reportable 09/04/19 03:26 Dimorphic RBCs Not Reportable 09/04/19 03:26 Polychromasia Not Reportable 09/04/19 03:26 Hypochromasia Not Reportable 09/04/19 03:26 Poikilocytosis 3+ 09/04/19 03:26 Anisocytosis 2+ 09/04/19 03:26 Microcytosis Not Reportable 09/04/19 03:26 Macrocytosis Not Reportable 09/04/19 03:26 Spherocytes Not Reportable 09/04/19 03:26 Pappenheimer Bodies Not Reportable 09/04/19 03:26 Sickle Cells Not Reportable 09/04/19 03:26 Target Cells Not Reportable 09/04/19 03:26 Tear Drop Cells Not Reportable 09/04/19 03:26 Ovalocytes 2+ 09/04/19 03:26 Helmet Cells Few 09/04/19 03:26 [place] Bodies Not Reportable 09/04/19 03:26 [place] Rings Not Reportable 09/04/19 03:26 [place] Cells 1+ 09/04/19 03:26 Bite Cells Not Reportable 09/04/19 03:26 Crenated Cell Not Reportable 09/04/19 03:26 Elliptocytes 2+ 09/04/19 03:26 Acanthocytes (Spur) Not Reportable 09/04/19 03:26 Rouleaux Not Reportable 09/04/19 03:26 Hemoglobin C Crystals Not Reportable 09/04/19 03:26 Schistocytes Few 09/04/19 03:26 Malaria parasites Not Reportable 09/04/19 03:26 Tera Bodies Not Reportable 09/04/19 03:26 Hem Pathologist Commnt No 09/04/19 03:26 PT 23.0 Sec. (12.2-14.9) H 09/02/19 07:23 INR 2.10 (0.87-1.13) H 09/02/19 07:23 APTT 33.0 Sec. (24.2-36.6) 09/02/19 07:23 D-Dimer 689.74 ng/mlDDU (0-234) H 09/02/19 Unknown ABG pH 7.415 pH Units (7.350-7.450) 09/02/19 05:30 ABG pCO2 30.6 mm Hg 09/02/19 05:30 ABG pO2 86.9 mm Hg (80.0-90.0) 09/02/19 05:30 ABG HCO3 19.2 mmol/L (20.0-26.0) L 09/02/19 05:30 ABG O2 Saturation 97.2 % (95.0-99.0) 09/02/19 05:30 ABG O2 Content 15.2 (0.0-44) 09/02/19 05:30 ABG Base Excess -4.4 mmol/L (-2.0-3.0) L 09/02/19 05:30 ABG Hemoglobin 11.3 gm/dl (14.0-18.0) L 09/02/19 05:30 ABG Carboxyhemoglobin 2.3 % (0.0-5.0) 09/02/19 05:30 ABG Methemoglobin 0.5 % (0.0-1.5) 09/02/19 05:30 Oxyhemoglobin 94.5 % (95.0-99.0) L 09/02/19 05:30 FiO2 32 % 09/02/19 05:30 Sodium 137 mmol/L (137-145) 09/04/19 03:26 Potassium 4.9 mmol/L (3.6-5.0) 09/04/19 03:26 Chloride 102.9 mmol/L (98-107) 09/04/19 03:26 Carbon Dioxide 21 mmol/L (22-30) L 09/04/19 03:26 Anion Gap 18 mmol/L 09/04/19 03:26 BUN 38 mg/dL (9-20) H 09/04/19 03:26 Creatinine 1.3 mg/dL (0.8-1.5) 09/04/19 03:26 Estimated GFR > 60 ml/min 09/04/19 03:26 BUN/Creatinine Ratio 29 % 09/04/19 03:26 Glucose 126 mg/dL (75-100) H 09/04/19 03:26 POC Glucose 238 (70-105) H 09/03/19 22:17 Hemoglobin A1c 6.2 % (4-6) H 09/03/19 04:25 Lactic Acid 1.90 mmol/L (0.7-2.0) 09/02/19 09:33 Calcium 10.0 mg/dL (8.4-10.2) 09/04/19 03:26 Ferritin 252.7 ng/mL (13.0-400.0) 09/02/19 09:33 Total Bilirubin 1.70 mg/dL (0.1-1.2) H 09/03/19 00:47 Direct Bilirubin 0.9 mg/dL (0-0.2) H 09/02/19 09:33 Indirect Bilirubin 2.1 mg/dL 09/02/19 09:33 AST 29 units/L (5-40) 09/03/19 00:47 ALT 41 units/L (7-56) 09/03/19 00:47 Alkaline Phosphatase 92 units/L (35-129) 09/03/19 00:47 Lactate Dehydrogenase 252 units/L (91-180) H 09/02/19 09:33 Troponin T < 0.010 ng/mL (0.00-0.029) 09/02/19 07:23 C-Reactive Protein 3.80 mg/dL (0.00-1.30) H 09/02/19 09:33 NT-Pro-B Natriuret Pep 26124 pg/mL (0-900) H 09/02/19 07:23 Total Protein 6.8 g/dL (6.3-8.2) 09/03/19 00:47 Albumin 2.5 g/dL (3.9-5) L 09/03/19 00:47 Albumin/Globulin Ratio 0.6 % 09/03/19 00:47 Procalcitonin < 0.05 ng/mL (<0.15) 09/02/19 09:33 Coronavirus (PCR) Negative (Negative) 09/02/19 Unknown Microbiology: Microbiology 09/02/19 Unknown Peripheral/Venous Blood Culture - Preliminary NO GROWTH AFTER 24 HOURS 09/02/19 Unknown Peripheral/Venous Blood Culture - Preliminary NO GROWTH AFTER 24 HOURS - Diagnostic Impressions Diagnostic Impressions: Echocardiogram 09/03/19 00:18 Transthoracic Echocardiogram Indication: Dyspnea BP: 102/57 HR: 98 Conclusions *Severe, 4-chamber dilated cardiomyopathy. *Global left ventricular systolic function is severely decreased. *The estimated ejection fraction is Less Than 15-20%. *Mild concentric left ventricular hypertrophy is observed. *There is mild aortic regurgitation. *There is mild to moderate mitral regurgitation. *There is at least moderate tricuspid regurgitation. *There is moderately-severe pulmonary hypertension. *The right ventricular systolic pressure is calculated at 61 mmHg. *A pacemaker wire is visualized in the right jeart chambers. Findings Left Ventricle: The left ventricular chamber size is severely dilated. Mild concentric left ventricular hypertrophy is observed. Global left ventricular systolic function is severely decreased. The estimated ejection fraction is 15-20%. Left Atrium: The left atrium is severely dilated. Right Ventricle: The right ventricle is moderate to severely dilated. The right ventricular global systolic function is severely reduced. A pacemaker wire is visualized in the right ventricle. Right Atrium: The right atrium is moderately dilated. A pacemaker wire is visualized in the right atrium. Aortic Valve: The aortic valve is trileaflet. The aortic valve leaflets are mildly thickened. There is mild aortic regurgitation. There is no evidence of aortic stenosis. The mean gradient of the aortic valve is 1.87 mmHg. Mitral Valve: The mitral valve leaflets are mildly thickened. There is mild to moderate mitral regurgitation. There is no evidence of mitral stenosis. Tricuspid Valve: There is moderate tricuspid regurgitation. The right ventricular systolic pressure is calculated at 61 mmHg. There is evidence of severe pulmonary hypertension. Pulmonic Valve: There is mild pulmonic regurgitation. Pericardium: There is no pericardial effusion. Aorta: There is no dilatation of the ascending aorta. There is no dilatation of the aortic root. Venous: The inferior vena cava is dilated. Measurements Chambers 2D Name Value Normal Range IVSd (2D) 0.83 cm (0.6 - 1.1) LVPWd (2D) 0.89 cm (0.6 - 1.1) LVIDd (2D) 6.97 cm (3.7 - 5.6) LVIDs (2D) 6.29 cm (2 - 3.8) LV FS (2D) 9.75 % - EF Teichholz (2D) 20.75 % - Ao root diameter (2D) 3.18 cm (2 - 3.7) Volumes/Mass Name Value Normal Range LA ESV SP 4CH (A/L) 102.95 ml - LA ESV SP 2CH (A/L) 148.69 ml - LA ESV BP (A/L) 128.54 ml - LA ESV BP (A/L) index 69.86 ml/m2 - LA ESV SP 4CH (MOD) 97.53 ml - LA ESV SP 2CH (MOD) 134.72 ml - LA ESV BP (MOD) 118.72 ml - LA ESV BP (MOD) index 64.52 ml/m2 - LV EDV SP 4CH (MOD) 265.95 ml - LV ESV SP 4CH (MOD) 198.9 ml - EF SP 4CH (MOD) 25.21 % - LV EDV SP 2CH (MOD) 240.8 ml - LV ESV SP 2CH (MOD) 201.36 ml - EF SP 2CH (MOD) 16.38 % - LV EDV BP 254.43 ml - LV ESV BP 204.99 ml - BP EF (MOD) 19.43 % - Diastolic/Systolic Function Name Value Normal Range MV E-wave Vmax 0.86 m/sec - MV deceleration time 172.86 msec - MV A-wave Vmax 0.44 m/sec - MV E:A ratio 1.94 ratio - Aortic Valve Name Value Normal Range AV Vmax 0.87 m/sec - AV VTI 17.36 cm - AV peak gradient 3.03 mmHg - AV mean gradient 1.87 mmHg - LVOT diameter 2.15 cm - LVOT Vmax 0.79 m/sec - LVOT VTI 10.29 cm - LVOT peak gradient 2.53 mmHg - LVOT mean gradient 1.07 mmHg - SV LVOT 37.26 ml - CHARLES (continuity Vmax) 3.31 cm2 - CHARLES (continuity VTI) 2.15 cm2 - AR PHT 930.2 msec - AR peak gradient 33.96 mmHg - Ascending Ao 3.39 cm - Mitral Valve Name Value Normal Range MV Vmax 0.95 m/sec - MV VTI 20.87 cm - MV peak gradient 3.65 mmHg - MV mean gradient 1.09 mmHg - MV PHT 58.55 msec - MVA (PHT) 3.76 cm2 - MVA (continuity VTI) 1.79 cm2 - Tricuspid Valve Name Value Normal Range TR Vmax 3.65 m/sec - TR peak gradient 53 mmHg - RAP 8 mmHg - RVSP 61 mmHg - IVC diameter 2.47 cm (1.2 - 2.3) Pulmonic Valve/Qp:Qs Name Value Normal Range PV Vmax 0.77 m/sec - PV VTI 15.61 cm - PV peak gradient 2.38 mmHg - PV mean gradient 1.17 mmHg - OR end-diastolic Vmax 1.4 m/sec - RVOT Vmax 0.56 m/sec - RVOT VTI 9.24 cm - RVOT peak gradient 1.27 mmHg - Estevez/IV: IV Catheter Type [Right Peripheral IV Forearm] IV Catheter Type [Left Peripheral IV Antecubital] Active Medications - Current Medications Current Medications: Generic Name Dose Route Start Last Admin Trade Name Freq PRN Reason Stop Dose Admin Acetaminophen 650 mg 09/03/19 00:06 Tylenol PO Q4H PRN Pain MILD(1-3)/Fever >100.5/BLANKENSHIP Amiodarone HCl 200 mg 09/04/19 10:00 Cordarone PO DAILY BANDAR Apixaban 5 mg 09/04/19 10:00 Eliquis PO DAILY BANDAR Protocol Azithromycin 500 mg 09/03/19 22:00 09/03/19 22:21 Zithromax PO 500 mg QHS BANDAR Administration Dexamethasone 6 mg 09/03/19 10:00 09/03/19 09:37 Decadron PO 6 mg DAILY BANDAR Administration Enoxaparin Sodium 40 mg 09/03/19 22:00 09/03/19 22:20 Enoxaparin SUB-Q 40 mg QDAY@2200 BANDAR Administration Famotidine 20 mg 09/03/19 10:00 09/03/19 22:21 Pepcid PO 20 mg BID BANDAR Administration Finasteride 5 mg 09/04/19 10:00 Proscar PO DAILY BANDAR Furosemide 40 mg 09/03/19 06:00 09/04/19 05:23 Lasix IV 40 mg 0600,1800 BANDAR Administration Hydromorphone HCl 0.5 mg 09/03/19 00:06 Dilaudid IV Q3H PRN Pain , Severe (7-10) Ceftriaxone Sodium 2 gm in 100 mls @ 200 mls/hr 09/03/19 10:00 09/03/19 11:18 Rocephin/Ns 2 Gm/100 Ml IV Infused Q24HR BANDAR Infusion Protocol Amiodarone HCl 900 mg/ 500 mls @ 33.333 mls/hr 09/04/19 07:00 Dextrose IV DIRECT BANDAR Protocol 1 MG/MIN Insulin Human Lispro 0 unit 09/03/19 08:00 09/03/19 22:21 Humalog SUB-Q 3 unit ACHS BANDAR Administration Protocol Lisinopril 10 mg 09/04/19 10:00 Zestril PO DAILY BANDAR Losartan Potassium 50 mg 09/03/19 10:00 09/03/19 09:36 Cozaar PO 50 mg QDAY BANDAR Administration Metoprolol Succinate 50 mg 09/04/19 10:00 Metoprolol Xl PO DAILY BANDAR Ondansetron HCl 4 mg 09/03/19 00:06 Zofran IV Q8H PRN Nausea And Vomiting Oxycodone/Acetaminophen 1 tab 09/03/19 00:06 09/03/19 09:37 Percocet 5/325 PO 1 tab Q6H PRN Administration Pain, Moderate (4-6) Potassium Chloride 20 meq 09/03/19 01:00 K-Dur PO Q12H BANDAR Sertraline HCl 50 mg 09/04/19 10:00 Zoloft PO QDAY BANDAR Sodium Chloride 10 ml 09/03/19 10:00 09/03/19 22:21 Sodium Chloride Flush Syringe 10 Ml IV 10 ml BID BANDAR Administration Sodium Chloride 10 ml 09/03/19 00:06 Sodium Chloride Flush Syringe 10 Ml IV PRN PRN LINE FLUSH
[2019-09-04] MEDS ORDERED: FUROSEMIDE 40 MG/4 ML INJ IV NR (09:38)
[2019-09-04] MEDS ORDERED: AMIODARONE 200 MG TAB PO SCH (10:00)
[2019-09-04] MEDS ORDERED: METOPROLOL SUCCINATE XL 50 MG TAB PO SCH (10:00)
[2019-09-04] MEDS: INSULIN LISPRO 100 UNIT/ML SUB-Q SCH ×4 (10:09→23:38)
[2019-09-04] MEDS: LISINOPRIL 10 MG TAB PO SCH ×2 (10:11→11:43)
[2019-09-04] MEDS: SERTRALINE 50 MG TAB PO SCH ×2 (10:11→11:40)
[2019-09-04] MEDS ORDERED: DEXAMETHASONE 4 MG TAB ONE (10:33)
[2019-09-04] MEDS ORDERED: FAMOTIDINE 20 MG TAB ONE (10:33)
[2019-09-04] MEDS ORDERED: SERTRALINE 50 MG TAB ONE (10:33)
[2019-09-04] MEDS ORDERED: LISINOPRIL 10 MG TAB ONE (10:34)
[2019-09-04] MEDS ORDERED: APIXABAN 5 MG TAB ONE (10:34)
[2019-09-04] MEDS ORDERED: LOSARTAN 50 MG TAB ONE (10:35)
[2019-09-04] MEDS ORDERED: METOPROLOL SUCCINATE XL 100 MG TAB PO ONE (10:35)
[2019-09-04] MEDS ORDERED: cefTRIAXone/NS 2 GM/100 ML 2 GM/100 ML BAG IV ONE (10:37)
[2019-09-04 11:19] LABS: ABG Base Excess -6.7 mmol/L (-2.0-3.0); ABG HCO3 18.2 mmol/L (20.0-26.0); ABG Methemoglobin 0.6 % (0.0-1.5); ABG Oxygen Saturation 97.8 % (95.0-99.0); ABG PCO2 34.1 mm Hg; ABG PH 7.345 pH Units (7.350-7.450); ABG PO2 106.7 mm Hg (80.0-90.0)
[2019-09-04] MEDS: FINASTERIDE 5 MG TAB PO SCH (11:39)
[2019-09-04] MEDS: APIXABAN 5 MG TAB PO SCH (11:40)
[2019-09-04] MEDS: LOSARTAN 50 MG TAB PO SCH (11:40)
[2019-09-04] MEDS: FAMOTIDINE 20 MG TAB PO SCH ×2 (11:40→22:57)
[2019-09-04] MEDS: DEXAMETHASONE 4 MG TAB PO SCH (11:41)
[2019-09-04] MEDS: cefTRIAXone/NS 2 GM/100 ML 2 GM/100 ML BAG IV SCH (11:41)
[2019-09-04] MEDS ORDERED: ONDANSETRON 4 MG/2 ML INJ ONE (12:57)
[2019-09-04] MEDS ORDERED: HYDROmorphone 1 MG/1 ML INJ ONE ×2 (12:57→19:48)
--- NOTE | 2019-09-04 13:53 | Consultation ---
History of Present Illness Consult date: 09/04/19 Consult reason: cardiac arrest, congestive heart failure History of present illness: The patient is a 69-year-old man with a severe dilated cardiomyopathy, and a cardiac defibrillator in situ. He is a poor historian unable to provide details of his prior cardiac work-up and his primary outpatient senior sales associate. He presented to the emergency room with shortness of breath and fatigue, chest x- ray on presentation showed bilateral pulmonary infiltrates consistent with acute pulmonary edema. In the emergency room he was started on diuretic therapy, and a COVID-19 test was also done that reported negative. While still in the emergency room, he suddenly developed sustained ventricular tachycardia prompting repeated firing of his defibrillator. His rhythm eventually stabilized with the administration of intravenous amiodarone. The sinus ECG showed no acute changes except for occasional PVCs. Laboratory exam showed a normal magnesium of 2.2, and a normal potassium of 4.9. Most notably on his laboratory values was an INR elevated at 2.1. The patient is reported to be on Eliquis therapy, and not warfarin. Indication cannot be confirmed by the patient but presumably paroxysmal atrial fibrillation. His home medication therapy also includes amiodarone 200 mg orally. 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 Past History Past Medical History: atrial fib, heart failure Medications and Allergies Allergies Allergy/AdvReac Type Severity Reaction Status Date / Time No Known Allergies Allergy Unverified 09/02/19 05:22 Home Medications Medication Instructions Recorded Confirmed Last Taken Type Amiodarone [Cordarone 200 MG TAB] 200 mg PO DAILY 09/03/19 09/03/19 Unknown History Apixaban [Eliquis] 5 mg PO DAILY 09/03/19 09/03/19 Unknown History Finasteride 5 mg PO DAILY 09/03/19 09/03/19 Unknown History Furosemide [Lasix TAB] 20 mg PO DAILY 09/03/19 09/03/19 Unknown History Metoprolol Xl [Metoprolol 50 mg PO DAILY 09/03/19 09/03/19 Unknown History SUCCINATE ER TAB] Sertraline [Zoloft] 50 mg PO QDAY 09/03/19 09/03/19 Unknown History lisinopriL [Zestril TAB] 10 mg PO DAILY 09/03/19 09/03/19 Unknown History Active Meds: Active Medications Acetaminophen (Tylenol) 650 mg PO Q4H PRN PRN Reason: Pain MILD(1-3)/Fever >100.5/[place] Amiodarone HCl (Cordarone) 200 mg PO DAILY [facility] Last Admin: 09/04/19 11:40 Dose: 200 mg Documented by: Apixaban (Eliquis) 5 mg PO DAILY [facility]; Protocol Last Admin: 09/04/19 11:40 Dose: 5 mg Documented by: Azithromycin (Zithromax) 500 mg PO QHS [facility] Last Admin: 09/03/19 22:21 Dose: 500 mg Documented by: Dexamethasone (Decadron) 6 mg PO DAILY [facility] Last Admin: 09/04/19 11:41 Dose: 6 mg Documented by: Famotidine (Pepcid) 20 mg PO BID [facility] Last Admin: 09/04/19 11:40 Dose: 20 mg Documented by: Finasteride (Proscar) 5 mg PO DAILY [facility] Last Admin: 09/04/19 11:39 Dose: 5 mg Documented by: Furosemide (Lasix) 40 mg IV 0600,1800 [facility] Last Admin: 09/04/19 05:23 Dose: 40 mg Documented by: Hydromorphone HCl (Dilaudid) 0.5 mg IV Q3H PRN PRN Reason: Pain , Severe (7-10) Ceftriaxone Sodium (Rocephin/Ns 2 Gm/100 Ml) 2 gm in 100 mls @ 200 mls/hr IV Q24HR [facility]; Protocol Last Admin: 09/04/19 11:41 Dose: 200 mls/hr Documented by: Amiodarone HCl 900 mg/ (Dextrose) 500 mls @ 33.333 mls/hr IV DIRECT [facility]; Protocol Last Admin: 09/04/19 08:00 Dose: 1 mg/min, 33.333 mls/hr Documented by: Insulin Human Lispro (Humalog) 0 unit SUB-Q ACHS [facility]; Protocol Last Admin: 09/04/19 10:09 Dose: Not Given Documented by: Lisinopril (Zestril) 10 mg PO DAILY [facility] Last Admin: 09/04/19 11:43 Dose: 10 mg Documented by: Losartan Potassium (Cozaar) 50 mg PO QDAY [facility] Last Admin: 09/04/19 11:40 Dose: 50 mg Documented by: Metoprolol Succinate (Metoprolol Xl) 50 mg PO DAILY [facility] Last Admin: 09/04/19 12:38 Dose: 50 mg Documented by: Ondansetron HCl (Zofran) 4 mg IV Q8H PRN PRN Reason: Nausea And Vomiting Oxycodone/Acetaminophen (Percocet 5/325) 1 tab PO Q6H PRN PRN Reason: Pain, Moderate (4-6) Last Admin: 09/03/19 09:37 Dose: 1 tab Documented by: Potassium Chloride (K-Dur) 20 meq PO Q12H [facility] Sertraline HCl (Zoloft) 50 mg PO QDAY [facility] Last Admin: 09/04/19 11:40 Dose: 50 mg Documented by: Sodium Chloride (Sodium Chloride Flush Syringe 10 Ml) 10 ml IV BID [facility] Last Admin: 09/03/19 22:21 Dose: 10 ml Documented by: Sodium Chloride (Sodium Chloride Flush Syringe 10 Ml) 10 ml IV PRN PRN PRN Reason: LINE FLUSH Review of Systems Cardiovascular: orthopnea, palpitations, rapid/irregular heart beat, shortness of breath, no chest pain, no edema, no syncope, no lightheadedness Physical Examination Vital Signs Pulse Ox 97 09/02/19 05:05 General appearance: no acute distress HEENT: Positive: PERRL Neck: Positive: neck supple Cardiac: Positive: Reg Rate and Rhythm Lungs: Positive: Decreased Breath Sounds Neuro: Positive: Grossly Intact Abdomen: Positive: Soft Male genitourinary: Positive: deferred Skin: Positive: Clear Extremities: Absent: edema Results 09/04/19 03:26 09/04/19 03:26 CBC 09/04/19 Range/Units 03:26 WBC 11.3 H (4.5-11.0) K/mm3 RBC 4.35 (3.65-5.03) M/mm3 Hgb 11.3 L (11.8-15.2) gm/dl Hct 35.8 (35.5-45.6) % Plt Count 223 (140-440) K/mm3 Comprehensive Metabolic Panel 09/04/19 Range/Units 03:26 Sodium 137 (137-145) mmol/L Potassium 4.9 (3.6-5.0) mmol/L Chloride 102.9 (98-107) mmol/L Carbon Dioxide 21 L (22-30) mmol/L BUN 38 H (9-20) mg/dL Creatinine 1.3 (0.8-1.5) mg/dL Glucose 126 H (75-100) mg/dL Calcium 10.0 (8.4-10.2) mg/dL EKG interpretations - Telemetry EKG Rhythm: Sinus Rhythm Assessment and Plan - Patient Problems (1) Acute on chronic systolic heart failure Current Visit: Yes Status: Acute Plan to address problem: Continue guideline directed medical therapy, and request for the patient's old records for review of previous cardiac work-up and cardiac interventions. (2) Ventricular tachycardia Current Visit: Yes Status: Acute Plan to address problem: The patient has a defibrillator in situ, and additional amiodarone is ongoing, we will switch to oral amiodarone 200 twice a day. An ICD interrogation has been requested.
[2019-09-04] MEDS ORDERED: EPINEPHrine 1 MG/10 ML SYRINGE IV ONE ×5 (14:32→18:29)
[2019-09-04] MEDS ORDERED: NORepinephrine/NS 4 MG-250 ML 4 MG/250 ML BAG IV ONE ×3 (14:43→20:12)
--- NOTE | 2019-09-04 15:06 | Event Note ---
Date: 09/04/19 Patient had cardiac arrest, CODE BLUE was called, CPR was done per ACLS protocol With return of spontaneous circulation, please check the code sheet for the details Patient's family the daughter was informed,who requested to continue full CODE STATUS
--- NOTE | 2019-09-04 15:19 | Event Note ---
Date: 09/04/19 CODE BLUE note: This is a patient that is holding pending ICU admission. I previously resuscitated him x1 this day. I was called by the nursing staff when the patient was found unresponsive. I found him to be pulseless and apneic. CPR was initiated. The patient was promptly intubated by myself the direct laryngoscopy after Ambu bag assist was immediately initiated. It was a single attempt 7.5 to at 23 cm at the teeth. End-tidal CO2 was positive with bilateral breath sounds. The patient was given chest compressions and then this was switched to a mechanical resuscitator. He was then found to have faint pulses but her blood pressure was not obtainable. He was given 0.25 of epinephrine. He then became normotensive. I prepared to place a central line anticipating a need for Levophed. The patient lost his pulses again and chest compressions was initiated. He was given additional epinephrine and bicarb. I successfully placed a triple-lumen central line via a single attempt. Vein was dilated and the triple-lumen catheter was initiated and charged with saline. It was sutured in and dressed sterilely. Levophed drip was anticipated but the patient initially was somewhat hypertensive after the epinephrine. Dr. Elliott, the patient's hospitalist, arrived. She assumed care.
[2019-09-04] MEDS ORDERED: SODIUM CHLORIDE 0.9% 1000 ML 1,000 ML IV ONE ×2 (15:20→23:25)
[2019-09-04] MEDS ORDERED: SODIUM CHLORIDE 0.9% 1000 ML 1,000 ML ONE (15:21)
[2019-09-04 16:02] LABS: ABG Base Excess -15.8 mmol/L (-2.0-3.0); ABG HCO3 16.9 mmol/L (20.0-26.0); ABG Methemoglobin 0.9 % (0.0-1.5); ABG Oxygen Saturation 26.3 % (95.0-99.0)
[2019-09-04 16:30] LABS: ABG PH 6.947 pH Units (7.350-7.450); ABG PO2 31.4 mm Hg (80.0-90.0)
--- NOTE | 2019-09-04 17:31 | Event Note ---
Date: 09/04/19 I discussed extensively with the patient's daughter and son over the speaker phone, patient's condition Multiple episodes of cardiac arrest requiring CPR, patient's hypotension requiring vasopressors Patient's severe cardiomyopathy with ejection fraction of 15%, multiple comorbidities, poor prognosis Possibility of anoxic brain injury given multiple cardiac arrests, advanced directives, CODE STATUS. The daughter said they are discussing amongst themselves, and will let us know when they come to a decision. Answered all their questions, informed the charge nurse Ms. Lundberg.
[2019-09-04] MEDS: NORepinephrine/NS 4 MG-250 ML 4 MG/250 ML BAG IV SCH ×3 (18:37→20:26)
[2019-09-04 22:03] LABS: ABG Base Excess -16.3 mmol/L (-2.0-3.0); ABG HCO3 14.3 mmol/L (20.0-26.0); ABG Methemoglobin 0.7 % (0.0-1.5); ABG PCO2 55.4 mm Hg; ABG PO2 91.1 mm Hg (80.0-90.0)
[2019-09-04 22:08] LABS: ABG PH 7.03 pH Units (7.350-7.450)
[2019-09-04] MEDS: NORepinephrine 8 MG in SODIUM CHLORIDE 0.9% 250ML 242 ML IV SCH (22:45)
[2019-09-04] MEDS: AZITHROMYCIN 250 MG TAB PO SCH (22:57)
[2019-09-04] MEDS ORDERED: DEXTROSE 50% IN WATER (25GM) 50 ML SYRINGE IV ONE ×2 (23:35→23:36)
[2019-09-05] MEDS: EPINEPHrine 1 MG/1 ML 16 MG in SODIUM CHLORIDE 0.9% 250ML 234 ML IV SCH (00:05)
[2019-09-05] MEDS ORDERED: SODIUM CHLORIDE 0.9% 1000 ML 1,000 ML IV SCH (00:45)
[2019-09-05] MEDS: DOPamine/D5W 800 MG/250 ML 800 MG/250 ML BAG IV SCH (00:47)
[2019-09-05] MEDS ORDERED: SODIUM BICARB 8.4% 50 MEQ/50 ML SYRINGE IV ONE ×2 (00:53→01:04)
[2019-09-05] MEDS: SODIUM BICARBONATE IV SCH (01:42)
[2019-09-05] MEDS: SODIUM CHLORIDE 0.45% IV SCH (01:42)
[2019-09-05] MEDS: NORepinephrine 8 MG in SODIUM CHLORIDE 0.9% 250ML 242 ML IV SCH ×4 (03:04→16:55)
[2019-09-05 04:47] LABS: Albumin 2.7 g/dL (3.9-5); Calcium 8.3 mg/dL (8.4-10.2)
--- NOTE | 2019-09-05 04:58 | XRay Report ---
Chest single view INDICATION: Chest pain dyspnea IMPRESSION: Moderately developed bilateral cardiopulmonary edema. No pneumothorax. No significant ple ural effusion. Cardiomegaly. Signer Name: Maxwell Jones MD Signed: 09/05/2019 4:54 AM Workstation Name: [id number]
[2019-09-05 06:02] LABS: ABG Base Excess -8.3 mmol/L (-2.0-3.0); ABG HCO3 20.8 mmol/L (20.0-26.0); ABG Methemoglobin 0.7 % (0.0-1.5); ABG Oxygen Saturation 95.4 % (95.0-99.0); ABG PCO2 60.6 mm Hg; ABG PO2 79.3 mm Hg (80.0-90.0)
[2019-09-05] MEDS ORDERED: ALBUTEROL 2.5 MG/3 ML NEBU IH ONE ×2 (06:09→06:41)
[2019-09-05] MEDS ORDERED: SODIUM POLYSTYRENE 15 GM/60 ML ORAL LIQD PO ONE ×2 (06:10→06:27)
[2019-09-05 06:13] LABS: ABG PH 7.154 pH Units (7.350-7.450)
[2019-09-05] MEDS ORDERED: LACTATED RINGERS 1,000 ML IV ONE (06:26)
[2019-09-05] MEDS ORDERED: LACTATED RINGERS 1,000 ML ONE (06:31)
[2019-09-05] MEDS: FUROSEMIDE 40 MG/4 ML INJ IV SCH ×3 (07:34→20:00)
[2019-09-05] MEDS: AMIODARONE 200 MG TAB PO SCH ×2 (07:39→14:28)
[2019-09-05] MEDS ORDERED: FUROSEMIDE 40 MG/4 ML INJ ONE ×2 (08:24→20:21)
[2019-09-05] MEDS ORDERED: SODIUM POLYSTYRENE 15 GM/60 ML ORAL LIQD ONE (08:30)
--- NOTE | 2019-09-05 08:50 | Progress Note ---
Assessment and Plan Assessment and plan: --COVID 19 test negative --Sustained VT; Patient was asymptomatic Amiodarone bolus followed by amiodarone drip per ER physician Continue home medications, Cardiology consult --Acute hypoxic respiratory failure: Multifactorial, CHF, COPD exacerbation BiPAP as needed, intubate if no improvement Pulmonary consult, informed Dr. Parmar Stat ABG --Acute on chronic systolic CHF, EF 15 to 20% Current Visit: Yes Status: Chronic Continue Lasix input output monitoring,, low-sodium diet Fluid restriction, echocardiogram for LV function ejection fraction. --History of A. fib; continue beta-blockers, amiodarone chronic anticoagulation with Eliquis --Severe cardiomyopathy/ICD Interrogation as needed, cardiology consulted, -- Bilateral pneumonia Current Visit: Yes Status: Acute . Continue IV Rocephin and Zithromax Duo nebs, COVID-19 negative Oxygen titrate O2 sats to more than 90%. --PUI/ COVID-19 test negative Current Visit: Yes Status: Acute Coronavirus PCR negative --Acute exacerbation of COPD ; Current Visit: Yes Status: Acute Duo nebs and steroids and IV antibiotics Oxygen titrate O2 sats to more than 90% Home oxygen evaluation at discharge -- Hypertension Current Visit: Yes Status: Chronic Continue antihypertensives and PRN antihypertensives --Type 2 diabetes mellitus Current Visit: Yes Status: Chronic Accu-Cheks adding scale coverage ADA diet insulin as needed, A1c; 6.2 --Coronary artery disease Current Visit: Yes Status: Chronic Continue current cardiac medications --DVT prophylaxis Current Visit: Yes Status: Acute On Eliquis --Full code: Status We will closely monitor the patient and adjust management as needed Patient has multiple comorbidities, poor prognosis The high probability of a clinically significant, sudden or life threatening deterioration of the [cardiac , infectious, metabolic and pulmonary] system(s) required my full and direct attention, intervention and personal management. The aggregate critical care time was [45] minutes. This time is in addition to time spent performing reported procedures but includes the following: [x] Data Review and interpretation [x] Patient assessment and monitoring of vital signs [x] Documentation [x] Medication orders and management Hospitalist Physical - Constitutional Vitals: Temp Pulse Resp BP Pulse Ox 100.4 F H 95 H 24 116/64 94 09/04/19 23:42 09/05/19 07:32 09/05/19 07:32 09/05/19 07:32 09/05/19 07:32 General appearance: Present: mild distress, well-nourished, other (Agitated) HEART Score - HEART Score Troponin: Troponin T < 0.010 ng/mL (0.00-0.029) 09/02/19 07:23 Results - Labs CBC & Chem 7: 09/04/19 03:26 09/05/19 04:02 Labs: Laboratory Last Values WBC 11.3 K/mm3 (4.5-11.0) H 09/04/19 03:26 RBC 4.35 M/mm3 (3.65-5.03) 09/04/19 03:26 Hgb 11.3 gm/dl (11.8-15.2) L 09/04/19 03:26 Hct 35.8 % (35.5-45.6) 09/04/19 03:26 MCV 82 fl (84-94) L 09/04/19 03:26 MCH 26 pg (28-32) L 09/04/19 03:26 MCHC 32 % (32-34) 09/04/19 03:26 RDW 18.4 % (13.2-15.2) H 09/04/19 03:26 Plt Count 223 K/mm3 (140-440) 09/04/19 03:26 Lymph % (Auto) 8.3 % (13.4-35.0) L 09/03/19 04:25 [place] % (Auto) 2.5 % (0.0-7.3) 09/03/19 04:25 Eos % (Auto) 0.0 % (0.0-4.3) 09/03/19 04:25 Baso % (Auto) 0.1 % (0.0-1.8) 09/03/19 04:25 Lymph # 0.4 K/mm3 (1.2-5.4) L 09/03/19 04:25 [place] # 0.1 K/mm3 (0.0-0.8) 09/03/19 04:25 Eos # 0.0 K/mm3 (0.0-0.4) 09/03/19 04:25 Baso # 0.0 K/mm3 (0.0-0.1) 09/03/19 04:25 Add Manual Diff Complete 09/04/19 03:26 Total Counted 100 09/04/19 03:26 Seg Neutrophils % Vat House Laborer 09/04/19 03:26 Seg Neuts % (Manual) 90.0 % (40.0-70.0) H 09/04/19 03:26 Band Neutrophils % 0 % 09/04/19 03:26 Lymphocytes % (Manual) 4.0 % (13.4-35.0) L 09/04/19 03:26 Reactive Lymphs % (Man) 0 % 09/04/19 03:26 Monocytes % (Manual) 6.0 % (0.0-7.3) 09/04/19 03:26 Eosinophils % (Manual) 0 % (0.0-4.3) 09/04/19 03:26 Basophils % (Manual) 0 % (0.0-1.8) 09/04/19 03:26 Metamyelocytes % 0 % 09/04/19 03:26 Myelocytes % 0 % 09/04/19 03:26 Promyelocytes % 0 % 09/04/19 03:26 Blast Cells % 0 % 09/04/19 03:26 Nucleated RBC % Not Reportable 09/04/19 03:26 Seg Neutrophils # 4.4 K/mm3 (1.8-7.7) 09/03/19 04:25 Seg Neutrophils # Man 10.2 K/mm3 (1.8-7.7) H 09/04/19 03:26 Band Neutrophils # 0.0 K/mm3 09/04/19 03:26 Lymphocytes # (Manual) 0.5 K/mm3 (1.2-5.4) L 09/04/19 03:26 Abs React Lymphs (Man) 0.0 K/mm3 09/04/19 03:26 Monocytes # (Manual) 0.7 K/mm3 (0.0-0.8) 09/04/19 03:26 Eosinophils # (Manual) 0.0 K/mm3 (0.0-0.4) 09/04/19 03:26 Basophils # (Manual) 0.0 K/mm3 (0.0-0.1) 09/04/19 03:26 Metamyelocytes # 0.0 K/mm3 09/04/19 03:26 Myelocytes # 0.0 K/mm3 09/04/19 03:26 Promyelocytes # 0.0 K/mm3 09/04/19 03:26 Blast Cells # 0.0 K/mm3 09/04/19 03:26 WBC Morphology Not Reportable 09/04/19 03:26 Hypersegmented Neuts Not Reportable 09/04/19 03:26 Hyposegmented Neuts Not Reportable 09/04/19 03:26 Hypogranular Neuts Not Reportable 09/04/19 03:26 Smudge Cells Not Reportable 09/04/19 03:26 Toxic Granulation Not Reportable 09/04/19 03:26 Toxic Vacuolation Not Reportable 09/04/19 03:26 Dohle Bodies Not Reportable 09/04/19 03:26 Pelger-Huet Anomaly Not Reportable 09/04/19 03:26 [place] Rods Not Reportable 09/04/19 03:26 Platelet Estimate Consistent w auto 09/04/19 03:26 Clumped Platelets Not Reportable 09/04/19 03:26 Plt Clumps, EDTA Not Reportable 09/04/19 03:26 Large Platelets Not Reportable 09/04/19 03:26 Giant Platelets Not Reportable 09/04/19 03:26 Platelet Satelliting Not Reportable 09/04/19 03:26 Plt Morphology Comment Not Reportable 09/04/19 03:26 RBC Morphology Not Reportable 09/04/19 03:26 Dimorphic RBCs Not Reportable 09/04/19 03:26 Polychromasia Not Reportable 09/04/19 03:26 Hypochromasia Not Reportable 09/04/19 03:26 Poikilocytosis 3+ 09/04/19 03:26 Anisocytosis 2+ 09/04/19 03:26 Microcytosis Not Reportable 09/04/19 03:26 Macrocytosis Not Reportable 09/04/19 03:26 Spherocytes Not Reportable 09/04/19 03:26 Pappenheimer Bodies Not Reportable 09/04/19 03:26 Sickle Cells Not Reportable 09/04/19 03:26 Target Cells Not Reportable 09/04/19 03:26 Tear Drop Cells Not Reportable 09/04/19 03:26 Ovalocytes 2+ 09/04/19 03:26 Helmet Cells Few 09/04/19 03:26 [place] I Bodies Not Reportable 09/04/19 03:26 [place] Rings Not Reportable 09/04/19 03:26 [place] Cells 1+ 09/04/19 03:26 Bite Cells Not Reportable 09/04/19 03:26 Crenated Cell Not Reportable 09/04/19 03:26 Elliptocytes 2+ 09/04/19 03:26 Acanthocytes (Spur) Not Reportable 09/04/19 03:26 Rouleaux Not Reportable 09/04/19 03:26 Hemoglobin C Crystals Not Reportable 09/04/19 03:26 Schistocytes Few 09/04/19 03:26 Malaria parasites Not Reportable 09/04/19 03:26 Tera Bodies Not Reportable 09/04/19 03:26 Hem Pathologist Commnt No 09/04/19 03:26 PT 23.0 Sec. (12.2-14.9) H 09/02/19 07:23 INR 2.10 (0.87-1.13) H 09/02/19 07:23 APTT 33.0 Sec. (24.2-36.6) 09/02/19 07:23 D-Dimer 689.74 ng/mlDDU (0-234) H 09/02/19 Unknown ABG pH 7.154 pH Units (7.350-7.450) L* 09/05/19 05:45 ABG pCO2 60.6 mm Hg 09/05/19 05:45 ABG pO2 79.3 mm Hg (80.0-90.0) L 09/05/19 05:45 ABG HCO3 20.8 mmol/L (20.0-26.0) 09/05/19 05:45 ABG O2 Saturation 95.4 % (95.0-99.0) 09/05/19 05:45 ABG O2 Content 15.3 (0.0-44) 09/05/19 05:45 ABG Base Excess -8.3 mmol/L (-2.0-3.0) L 09/05/19 05:45 ABG Hemoglobin 11.7 gm/dl (14.0-18.0) L 09/05/19 05:45 ABG Carboxyhemoglobin 2.1 % (0.0-5.0) 09/05/19 05:45 ABG Methemoglobin 0.7 % (0.0-1.5) 09/05/19 05:45 Oxyhemoglobin 92.7 % (95.0-99.0) L 09/05/19 05:45 FiO2 95 % 09/05/19 05:45 Sodium 143 mmol/L (137-145) 09/05/19 04:02 Potassium 5.7 mmol/L (3.6-5.0) H 09/05/19 04:02 Chloride 102.6 mmol/L (98-107) 09/05/19 04:02 Carbon Dioxide 19 mmol/L (22-30) L 09/05/19 04:02 Anion Gap 27 mmol/L 09/05/19 04:02 BUN 53 mg/dL (9-20) H 09/05/19 04:02 Creatinine 2.6 mg/dL (0.8-1.5) H D 09/05/19 04:02 Estimated GFR 30 ml/min 09/05/19 04:02 BUN/Creatinine Ratio 20 % 09/05/19 04:02 Glucose 109 mg/dL (75-100) H 09/05/19 04:02 POC Glucose 123 (70-105) H 09/05/19 08:58 Hemoglobin A1c 6.2 % (4-6) H 09/03/19 04:25 Lactic Acid 1.90 mmol/L (0.7-2.0) 09/02/19 09:33 Calcium 8.3 mg/dL (8.4-10.2) L D 09/05/19 04:02 Magnesium 2.20 mg/dL (1.7-2.3) 09/04/19 11:14 Ferritin 252.7 ng/mL (13.0-400.0) 09/02/19 09:33 Total Bilirubin 2.40 mg/dL (0.1-1.2) H 09/05/19 04:02 Direct Bilirubin 0.9 mg/dL (0-0.2) H 09/02/19 09:33 Indirect Bilirubin 2.1 mg/dL 09/02/19 09:33 AST 2750 units/L (5-40) H 09/05/19 04:02 ALT 1466 units/L (7-56) H 09/05/19 04:02 Alkaline Phosphatase 134 units/L (35-129) H 09/05/19 04:02 Lactate Dehydrogenase 252 units/L (91-180) H 09/02/19 09:33 Troponin T < 0.010 ng/mL (0.00-0.029) 09/02/19 07:23 C-Reactive Protein 3.80 mg/dL (0.00-1.30) H 09/02/19 09:33 NT-Pro-B Natriuret Pep 62450 pg/mL (0-900) H 09/02/19 07:23 Total Protein 6.6 g/dL (6.3-8.2) 09/05/19 04:02 Albumin 2.7 g/dL (3.9-5) L 09/05/19 04:02 Albumin/Globulin Ratio 0.7 % 09/05/19 04:02 Procalcitonin < 0.05 ng/mL (<0.15) 09/02/19 09:33 TSH 2.670 mlU/mL (0.270-4.200) 09/04/19 11:14 Free T4 1.08 ng/dL (0.76-1.46) 09/04/19 11:14 Coronavirus (PCR) Negative (Negative) 09/02/19 Unknown Microbiology: Microbiology 09/02/19 Unknown Peripheral/Venous Blood Culture - Preliminary NO GROWTH AFTER 48 HOURS 09/02/19 Unknown Peripheral/Venous Blood Culture - Preliminary NO GROWTH AFTER 48 HOURS - Diagnostic Impressions Diagnostic Impressions: Echocardiogram 09/03/19 00:18 Transthoracic Echocardiogram Indication: Dyspnea BP: 102/57 HR: 98 Conclusions *Severe, 4-chamber dilated cardiomyopathy. *Global left ventricular systolic function is severely decreased. *The estimated ejection fraction is Less Than 15-20%. *Mild concentric left ventricular hypertrophy is observed. *There is mild aortic regurgitation. *There is mild to moderate mitral regurgitation. *There is at least moderate tricuspid regurgitation. *There is moderately-severe pulmonary hypertension. *The right ventricular systolic pressure is calculated at 61 mmHg. *A pacemaker wire is visualized in the right jeart chambers. Findings Left Ventricle: The left ventricular chamber size is severely dilated. Mild concentric left ventricular hypertrophy is observed. Global left ventricular systolic function is severely decreased. The estimated ejection fraction is 15-20%. Left Atrium: The left atrium is severely dilated. Right Ventricle: The right ventricle is moderate to severely dilated. The right ventricular global systolic function is severely reduced. A pacemaker wire is visualized in the right ventricle. Right Atrium: The right atrium is moderately dilated. A pacemaker wire is visualized in the right atrium. Aortic Valve: The aortic valve is trileaflet. The aortic valve leaflets are mildly thickened. There is mild aortic regurgitation. There is no evidence of aortic stenosis. The mean gradient of the aortic valve is 1.87 mmHg. Mitral Valve: The mitral valve leaflets are mildly thickened. There is mild to moderate mitral regurgitation. There is no evidence of mitral stenosis. Tricuspid Valve: There is moderate tricuspid regurgitation. The right ventricular systolic pressure is calculated at 61 mmHg. There is evidence of severe pulmonary hypertension. Pulmonic Valve: There is mild pulmonic regurgitation. Pericardium: There is no pericardial effusion. Aorta: There is no dilatation of the ascending aorta. There is no dilatation of the aortic root. Venous: The inferior vena cava is dilated. Measurements Chambers 2D Name Value Normal Range IVSd (2D) 0.83 cm (0.6 - 1.1) LVPWd (2D) 0.89 cm (0.6 - 1.1) LVIDd (2D) 6.97 cm (3.7 - 5.6) LVIDs (2D) 6.29 cm (2 - 3.8) LV FS (2D) 9.75 % - EF Teichholz (2D) 20.75 % - Ao root diameter (2D) 3.18 cm (2 - 3.7) Volumes/Mass Name Value Normal Range LA ESV SP 4CH (A/L) 102.95 ml - LA ESV SP 2CH (A/L) 148.69 ml - LA ESV BP (A/L) 128.54 ml - LA ESV BP (A/L) index 69.86 ml/m2 - LA ESV SP 4CH (MOD) 97.53 ml - LA ESV SP 2CH (MOD) 134.72 ml - LA ESV BP (MOD) 118.72 ml - LA ESV BP (MOD) index 64.52 ml/m2 - LV EDV SP 4CH (MOD) 265.95 ml - LV ESV SP 4CH (MOD) 198.9 ml - EF SP 4CH (MOD) 25.21 % - LV EDV SP 2CH (MOD) 240.8 ml - LV ESV SP 2CH (MOD) 201.36 ml - EF SP 2CH (MOD) 16.38 % - LV EDV BP 254.43 ml - LV ESV BP 204.99 ml - BP EF (MOD) 19.43 % - Diastolic/Systolic Function Name Value Normal Range MV E-wave Vmax 0.86 m/sec - MV deceleration time 172.86 msec - MV A-wave Vmax 0.44 m/sec - MV E:A ratio 1.94 ratio - Aortic Valve Name Value Normal Range AV Vmax 0.87 m/sec - AV VTI 17.36 cm - AV peak gradient 3.03 mmHg - AV mean gradient 1.87 mmHg - LVOT diameter 2.15 cm - LVOT Vmax 0.79 m/sec - LVOT VTI 10.29 cm - LVOT peak gradient 2.53 mmHg - LVOT mean gradient 1.07 mmHg - SV LVOT 37.26 ml - CHARLES (continuity Vmax) 3.31 cm2 - CHARLES (continuity VTI) 2.15 cm2 - AR PHT 930.2 msec - AR peak gradient 33.96 mmHg - Ascending Ao 3.39 cm - Mitral Valve Name Value Normal Range MV Vmax 0.95 m/sec - MV VTI 20.87 cm - MV peak gradient 3.65 mmHg - MV mean gradient 1.09 mmHg - MV PHT 58.55 msec - MVA (PHT) 3.76 cm2 - MVA (continuity VTI) 1.79 cm2 - Tricuspid Valve Name Value Normal Range TR Vmax 3.65 m/sec - TR peak gradient 53 mmHg - RAP 8 mmHg - RVSP 61 mmHg - IVC diameter 2.47 cm (1.2 - 2.3) Pulmonic Valve/Qp:Qs Name Value Normal Range PV Vmax 0.77 m/sec - PV VTI 15.61 cm - PV peak gradient 2.38 mmHg - PV mean gradient 1.17 mmHg - KS end-diastolic Vmax 1.4 m/sec - RVOT Vmax 0.56 m/sec - RVOT VTI 9.24 cm - RVOT peak gradient 1.27 mmHg - Estevez/IV: IV Catheter Type [Right Peripheral IV Forearm] IV Catheter Type [Left Peripheral IV Antecubital] Active Medications - Current Medications Current Medications: Generic Name Dose Route Start Last Admin Trade Name Freq PRN Reason Stop Dose Admin Acetaminophen 650 mg 09/03/19 00:06 Tylenol PO Q4H PRN Pain MILD(1-3)/Fever >100.5/BLANKENSHIP Apixaban 5 mg 09/04/19 10:00 09/04/19 11:40 Eliquis PO 5 mg DAILY BANDAR Administration Protocol Azithromycin 500 mg 09/03/19 22:00 09/04/19 22:57 Zithromax PO 09/06/19 21:59 Not Given QHS BANDAR Dexamethasone 6 mg 09/03/19 10:00 09/04/19 11:41 Decadron PO 6 mg DAILY BANDAR Administration Famotidine 20 mg 09/03/19 10:00 09/04/19 22:57 Pepcid PO Not Given BID BANDAR Finasteride 5 mg 09/04/19 10:00 09/04/19 11:39 Proscar PO 5 mg DAILY BANDAR Administration Furosemide 40 mg 09/03/19 06:00 09/05/19 08:24 Lasix IV 40 mg 0600,1800 BANDAR Administration Hydromorphone HCl 0.5 mg 09/03/19 00:06 09/04/19 13:05 Dilaudid IV 0.5 mg Q3H PRN Administration Pain , Severe (7-10) Ceftriaxone Sodium 2 gm in 100 mls @ 200 mls/hr 09/03/19 10:00 09/04/19 11:41 Rocephin/Ns 2 Gm/100 Ml IV 09/07/19 10:29 200 mls/hr Q24HR BANDAR Administration Protocol Norepinephrine 8 mg/ Sodium 250 mls @ 3.75 mls/hr 09/04/19 23:00 09/05/19 06:41 Chloride IV 30 mcg/min TITR BANDAR 56.25 mls/hr Administration Protocol 2 MCG/MIN Epinephrine 16 mg/ Sodium 250 mls @ 1.875 mls/hr 09/04/19 23:45 09/05/19 00:49 Chloride IV 10 mcg/min TITR BANDAR 9.375 mls/hr Titration Protocol 2 MCG/MIN Sodium Chloride 1,000 mls @ 150 mls/hr 09/05/19 00:45 09/05/19 00:48 Nacl 0.9% 1000 Ml IV 150 mls/hr DIRECT BANDAR Administration Dopamine HCl/Dextrose 800 mg in 250 mls @ 2.739 mls/hr 09/05/19 01:00 09/05/19 06:51 Intropin Drip 800 Mg/D5w 250 Ml IV 2 mcg/kg/min TITR BANDAR 2.739 mls/hr Titration Protocol 2 MCG/KG/MIN Sodium Bicarbonate 150 meq/ 1,150 mls @ 200 mls/hr 09/05/19 01:00 09/05/19 01:42 Sodium Chloride IV 200 mls/hr DIRECT BANDAR Administration Insulin Human Lispro 0 unit 09/03/19 08:00 09/04/19 23:38 Humalog SUB-Q Not Given ACHS BANDAR Protocol Lisinopril 10 mg 09/04/19 10:00 09/04/19 11:43 Zestril PO 10 mg DAILY BANDAR Administration Losartan Potassium 50 mg 09/03/19 10:00 09/04/19 11:40 Cozaar PO 50 mg QDAY BANDAR Administration Metoprolol Succinate 50 mg 09/04/19 10:00 09/04/19 12:38 Metoprolol Xl PO 50 mg DAILY BANDAR Administration Ondansetron HCl 4 mg 09/03/19 00:06 09/04/19 13:05 Zofran IV 4 mg Q8H PRN Administration Nausea And Vomiting Oxycodone/Acetaminophen 1 tab 09/03/19 00:06 09/03/19 09:37 Percocet 5/325 PO 1 tab Q6H PRN Administration Pain, Moderate (4-6) Sertraline HCl 50 mg 09/04/19 10:00 09/04/19 11:40 Zoloft PO 50 mg QDAY BANDAR Administration Sodium Chloride 10 ml 09/03/19 10:00 09/04/19 22:20 Sodium Chloride Flush Syringe 10 Ml IV 10 ml BID BANDAR Administration Sodium Chloride 10 ml 09/03/19 00:06 Sodium Chloride Flush Syringe 10 Ml IV PRN PRN LINE FLUSH
--- NOTE | 2019-09-05 08:54 | Progress Note ---
Assessment and Plan Assessment and plan: --COVID 19 test negative --Hyperkalemia; Kayexalate, monitor electrolytes --Acute kidney injury; secondary to ATN Gentle hydration, monitor renal function, nephrology consult if needed --Cardiac arrest /multiple episodes; status post CPR per ACLS protocol, check code sheets. On ventilatory support, cardiology following --Severe shock; on 3 vasopressors Pressure low normal range, closely monitor. --Shock liver; transaminases in thousands Due to severe hypotension and cardiac arrest AST 2750, ALT 1466 closely monitor, GI consult if needed. --s/p Sustained VT; Patient was asymptomatic s/p Amiodarone bolus followed by amiodarone drip per ER physician, Cardiology following --Acute hypoxic respiratory failure: Intubated on vent Multifactorial, CHF, COPD exacerbation BiPAP as needed, intubate if no improvement Pulmonary consult, informed Dr. Parmar Stat ABG --Acute on chronic systolic CHF, EF 15 to 20% Current Visit: Yes Status: Chronic Continue Lasix input output monitoring,, low-sodium diet Fluid restriction, echocardiogram for LV function ejection fraction. --History of A. fib; continue beta-blockers, amiodarone chronic anticoagulation with Eliquis --Severe cardiomyopathy/ICD Interrogation as needed, cardiology consulted, -- Bilateral pneumonia Current Visit: Yes Status: Acute . Continue IV Rocephin and Zithromax Duo nebs, COVID-19 negative Oxygen titrate O2 sats to more than 90%. --PUI/ COVID-19 test negative Current Visit: Yes Status: Acute Coronavirus PCR negative --Acute exacerbation of COPD ; Current Visit: Yes Status: Acute Duo nebs and steroids and IV antibiotics Oxygen titrate O2 sats to more than 90% Home oxygen evaluation at discharge -- h/o Hypertension Current Visit: Yes Status: Chronic Patient is hypotensive and in shock Requiring pressors, hold antihypertensive medications --Type 2 diabetes mellitus Current Visit: Yes Status: Chronic Accu-Cheks adding scale coverage ADA diet insulin as needed, A1c; 6.2 --Coronary artery disease Current Visit: Yes Status: Chronic Continue current cardiac medications --DVT prophylaxis Current Visit: Yes Status: Acute On Eliquis --Full code: Status We will closely monitor the patient and adjust management as needed Patient is critically ill with multiorgan involvement, multiple events of cardiac arrest Possible anoxic brain injury very poor prognosis, recommend DNR /palliative care/hospice Plan of care reviewed with the patient's nurse, discussed with dental laboratory worker Dr. Parmar. The high probability of a clinically significant, sudden or life threatening deterioration of the [cardiac , infectious, metabolic, GI and liver and pulmonary] system(s) required my full and direct attention, intervention and personal management. The aggregate critical care time was [45] minutes. This time is in addition to time spent performing reported procedures but includes the following: [x] Data Review and interpretation [x] Patient assessment and monitoring of vital signs [x] Documentation [x] Medication orders and management History Interval history: I have seen and examined the patient in ER awaiting bed assignment Patient is orally intubated on ventilatory support Unresponsive, had multiple events of cardiac arrest requiring CPR Critically ill with multiorgan involvement, poor prognosis Vital signs noted, hypotensive on multiple pressors Hospitalist Physical - Constitutional Vitals: Temp Pulse Resp BP Pulse Ox 100.4 F H 95 H 24 116/64 94 09/04/19 23:42 09/05/19 07:32 09/05/19 07:32 09/05/19 07:32 09/05/19 07:32 General appearance: Present: mild distress, well-nourished, other (Agitated) - EENT Eyes: Present: PERRL, EOM intact - Neck Neck: Present: supple, normal ROM - Respiratory Respiratory effort: normal Respiratory: bilateral: diminished, rhonchi, negative: rales, wheezing - Cardiovascular Rhythm: regular Heart Sounds: Present: S1 & S2 - Extremities Extremities: no ischemia, No edema - Abdominal General gastrointestinal: soft, non-tender, non-distended, normal bowel sounds - Integumentary Integumentary: Present: clear, warm - Psychiatric Psychiatric: other (Intubated on vent) - Neurologic Neurologic: other (Intubated on vent) HEART Score - HEART Score Troponin: Troponin T < 0.010 ng/mL (0.00-0.029) 09/02/19 07:23 Results - Labs CBC & Chem 7: 09/04/19 03:26 09/05/19 04:02 Labs: Laboratory Last Values WBC 11.3 K/mm3 (4.5-11.0) H 09/04/19 03:26 RBC 4.35 M/mm3 (3.65-5.03) 09/04/19 03:26 Hgb 11.3 gm/dl (11.8-15.2) L 09/04/19 03:26 Hct 35.8 % (35.5-45.6) 09/04/19 03:26 MCV 82 fl (84-94) L 09/04/19 03:26 MCH 26 pg (28-32) L 09/04/19 03:26 MCHC 32 % (32-34) 09/04/19 03:26 RDW 18.4 % (13.2-15.2) H 09/04/19 03:26 Plt Count 223 K/mm3 (140-440) 09/04/19 03:26 Lymph % (Auto) 8.3 % (13.4-35.0) L 09/03/19 04:25 Ralls % (Auto) 2.5 % (0.0-7.3) 09/03/19 04:25 Eos % (Auto) 0.0 % (0.0-4.3) 09/03/19 04:25 Baso % (Auto) 0.1 % (0.0-1.8) 09/03/19 04:25 Lymph # 0.4 K/mm3 (1.2-5.4) L 09/03/19 04:25 Ralls # 0.1 K/mm3 (0.0-0.8) 09/03/19 04:25 Eos # 0.0 K/mm3 (0.0-0.4) 09/03/19 04:25 Baso # 0.0 K/mm3 (0.0-0.1) 09/03/19 04:25 Add Manual Diff Complete 09/04/19 03:26 Total Counted 100 09/04/19 03:26 Seg Neutrophils % District Engineer 09/04/19 03:26 Seg Neuts % (Manual) 90.0 % (40.0-70.0) H 09/04/19 03:26 Band Neutrophils % 0 % 09/04/19 03:26 Lymphocytes % (Manual) 4.0 % (13.4-35.0) L 09/04/19 03:26 Reactive Lymphs % (Man) 0 % 09/04/19 03:26 Monocytes % (Manual) 6.0 % (0.0-7.3) 09/04/19 03:26 Eosinophils % (Manual) 0 % (0.0-4.3) 09/04/19 03:26 Basophils % (Manual) 0 % (0.0-1.8) 09/04/19 03:26 Metamyelocytes % 0 % 09/04/19 03:26 Myelocytes % 0 % 09/04/19 03:26 Promyelocytes % 0 % 09/04/19 03:26 Blast Cells % 0 % 09/04/19 03:26 Nucleated RBC % Not Reportable 09/04/19 03:26 Seg Neutrophils # 4.4 K/mm3 (1.8-7.7) 09/03/19 04:25 Seg Neutrophils # Man 10.2 K/mm3 (1.8-7.7) H 09/04/19 03:26 Band Neutrophils # 0.0 K/mm3 09/04/19 03:26 Lymphocytes # (Manual) 0.5 K/mm3 (1.2-5.4) L 09/04/19 03:26 Abs React Lymphs (Man) 0.0 K/mm3 09/04/19 03:26 Monocytes # (Manual) 0.7 K/mm3 (0.0-0.8) 09/04/19 03:26 Eosinophils # (Manual) 0.0 K/mm3 (0.0-0.4) 09/04/19 03:26 Basophils # (Manual) 0.0 K/mm3 (0.0-0.1) 09/04/19 03:26 Metamyelocytes # 0.0 K/mm3 09/04/19 03:26 Myelocytes # 0.0 K/mm3 09/04/19 03:26 Promyelocytes # 0.0 K/mm3 09/04/19 03:26 Blast Cells # 0.0 K/mm3 09/04/19 03:26 WBC Morphology Not Reportable 09/04/19 03:26 Hypersegmented Neuts Not Reportable 09/04/19 03:26 Hyposegmented Neuts Not Reportable 09/04/19 03:26 Hypogranular Neuts Not Reportable 09/04/19 03:26 Smudge Cells Not Reportable 09/04/19 03:26 Toxic Granulation Not Reportable 09/04/19 03:26 Toxic Vacuolation Not Reportable 09/04/19 03:26 Dohle Bodies Not Reportable 09/04/19 03:26 Pelger-Huet Anomaly Not Reportable 09/04/19 03:26 Shirley Rods Not Reportable 09/04/19 03:26 Platelet Estimate Consistent w auto 09/04/19 03:26 Clumped Platelets Not Reportable 09/04/19 03:26 Plt Clumps, EDTA Not Reportable 09/04/19 03:26 Large Platelets Not Reportable 09/04/19 03:26 Giant Platelets Not Reportable 09/04/19 03:26 Platelet Satelliting Not Reportable 09/04/19 03:26 Plt Morphology Comment Not Reportable 09/04/19 03:26 RBC Morphology Not Reportable 09/04/19 03:26 Dimorphic RBCs Not Reportable 09/04/19 03:26 Polychromasia Not Reportable 09/04/19 03:26 Hypochromasia Not Reportable 09/04/19 03:26 Poikilocytosis 3+ 09/04/19 03:26 Anisocytosis 2+ 09/04/19 03:26 Microcytosis Not Reportable 09/04/19 03:26 Macrocytosis Not Reportable 09/04/19 03:26 Spherocytes Not Reportable 09/04/19 03:26 Pappenheimer Bodies Not Reportable 09/04/19 03:26 Sickle Cells Not Reportable 09/04/19 03:26 Target Cells Not Reportable 09/04/19 03:26 Tear Drop Cells Not Reportable 09/04/19 03:26 Ovalocytes 2+ 09/04/19 03:26 Helmet Cells Few 09/04/19 03:26 Oneill-Hermann Bodies Not Reportable 09/04/19 03:26 Conway Rings Not Reportable 09/04/19 03:26 [place] Cells 1+ 09/04/19 03:26 Bite Cells Not Reportable 09/04/19 03:26 Crenated Cell Not Reportable 09/04/19 03:26 Elliptocytes 2+ 09/04/19 03:26 Acanthocytes (Spur) Not Reportable 09/04/19 03:26 Rouleaux Not Reportable 09/04/19 03:26 Hemoglobin C Crystals Not Reportable 09/04/19 03:26 Schistocytes Few 09/04/19 03:26 Malaria parasites Not Reportable 09/04/19 03:26 Tera Bodies Not Reportable 09/04/19 03:26 Hem Pathologist Commnt No 09/04/19 03:26 PT 23.0 Sec. (12.2-14.9) H 09/02/19 07:23 INR 2.10 (0.87-1.13) H 09/02/19 07:23 APTT 33.0 Sec. (24.2-36.6) 09/02/19 07:23 D-Dimer 689.74 ng/mlDDU (0-234) H 09/02/19 Unknown ABG pH 7.154 pH Units (7.350-7.450) L* 09/05/19 05:45 ABG pCO2 60.6 mm Hg 09/05/19 05:45 ABG pO2 79.3 mm Hg (80.0-90.0) L 09/05/19 05:45 ABG HCO3 20.8 mmol/L (20.0-26.0) 09/05/19 05:45 ABG O2 Saturation 95.4 % (95.0-99.0) 09/05/19 05:45 ABG O2 Content 15.3 (0.0-44) 09/05/19 05:45 ABG Base Excess -8.3 mmol/L (-2.0-3.0) L 09/05/19 05:45 ABG Hemoglobin 11.7 gm/dl (14.0-18.0) L 09/05/19 05:45 ABG Carboxyhemoglobin 2.1 % (0.0-5.0) 09/05/19 05:45 ABG Methemoglobin 0.7 % (0.0-1.5) 09/05/19 05:45 Oxyhemoglobin 92.7 % (95.0-99.0) L 09/05/19 05:45 FiO2 95 % 09/05/19 05:45 Sodium 143 mmol/L (137-145) 09/05/19 04:02 Potassium 5.7 mmol/L (3.6-5.0) H 09/05/19 04:02 Chloride 102.6 mmol/L (98-107) 09/05/19 04:02 Carbon Dioxide 19 mmol/L (22-30) L 09/05/19 04:02 Anion Gap 27 mmol/L 09/05/19 04:02 BUN 53 mg/dL (9-20) H 09/05/19 04:02 Creatinine 2.6 mg/dL (0.8-1.5) H D 09/05/19 04:02 Estimated GFR 30 ml/min 09/05/19 04:02 BUN/Creatinine Ratio 20 % 09/05/19 04:02 Glucose 109 mg/dL (75-100) H 09/05/19 04:02 POC Glucose 123 (70-105) H 09/05/19 08:58 Hemoglobin A1c 6.2 % (4-6) H 09/03/19 04:25 Lactic Acid 1.90 mmol/L (0.7-2.0) 09/02/19 09:33 Calcium 8.3 mg/dL (8.4-10.2) L D 09/05/19 04:02 Magnesium 2.20 mg/dL (1.7-2.3) 09/04/19 11:14 Ferritin 252.7 ng/mL (13.0-400.0) 09/02/19 09:33 Total Bilirubin 2.40 mg/dL (0.1-1.2) H 09/05/19 04:02 Direct Bilirubin 0.9 mg/dL (0-0.2) H 09/02/19 09:33 Indirect Bilirubin 2.1 mg/dL 09/02/19 09:33 AST 2750 units/L (5-40) H 09/05/19 04:02 ALT 1466 units/L (7-56) H 09/05/19 04:02 Alkaline Phosphatase 134 units/L (35-129) H 09/05/19 04:02 Lactate Dehydrogenase 252 units/L (91-180) H 09/02/19 09:33 Troponin T < 0.010 ng/mL (0.00-0.029) 09/02/19 07:23 C-Reactive Protein 3.80 mg/dL (0.00-1.30) H 09/02/19 09:33 NT-Pro-B Natriuret Pep 70115 pg/mL (0-900) H 09/02/19 07:23 Total Protein 6.6 g/dL (6.3-8.2) 09/05/19 04:02 Albumin 2.7 g/dL (3.9-5) L 09/05/19 04:02 Albumin/Globulin Ratio 0.7 % 09/05/19 04:02 Procalcitonin < 0.05 ng/mL (<0.15) 09/02/19 09:33 TSH 2.670 mlU/mL (0.270-4.200) 09/04/19 11:14 Free T4 1.08 ng/dL (0.76-1.46) 09/04/19 11:14 Coronavirus (PCR) Negative (Negative) 09/02/19 Unknown Microbiology: Microbiology 09/02/19 Unknown Peripheral/Venous Blood Culture - Preliminary NO GROWTH AFTER 48 HOURS 09/02/19 Unknown Peripheral/Venous Blood Culture - Preliminary NO GROWTH AFTER 48 HOURS - Diagnostic Impressions Diagnostic Impressions: Echocardiogram 09/03/19 00:18 Transthoracic Echocardiogram Indication: Dyspnea BP: 102/57 HR: 98 Conclusions *Severe, 4-chamber dilated cardiomyopathy. *Global left ventricular systolic function is severely decreased. *The estimated ejection fraction is Less Than 15-20%. *Mild concentric left ventricular hypertrophy is observed. *There is mild aortic regurgitation. *There is mild to moderate mitral regurgitation. *There is at least moderate tricuspid regurgitation. *There is moderately-severe pulmonary hypertension. *The right ventricular systolic pressure is calculated at 61 mmHg. *A pacemaker wire is visualized in the right jeart chambers. Findings Left Ventricle: The left ventricular chamber size is severely dilated. Mild concentric left ventricular hypertrophy is observed. Global left ventricular systolic function is severely decreased. The estimated ejection fraction is 15-20%. Left Atrium: The left atrium is severely dilated. Right Ventricle: The right ventricle is moderate to severely dilated. The right ventricular global systolic function is severely reduced. A pacemaker wire is visualized in the right ventricle. Right Atrium: The right atrium is moderately dilated. A pacemaker wire is visualized in the right atrium. Aortic Valve: The aortic valve is trileaflet. The aortic valve leaflets are mildly thickened. There is mild aortic regurgitation. There is no evidence of aortic stenosis. The mean gradient of the aortic valve is 1.87 mmHg. Mitral Valve: The mitral valve leaflets are mildly thickened. There is mild to moderate mitral regurgitation. There is no evidence of mitral stenosis. Tricuspid Valve: There is moderate tricuspid regurgitation. The right ventricular systolic pressure is calculated at 61 mmHg. There is evidence of severe pulmonary hypertension. Pulmonic Valve: There is mild pulmonic regurgitation. Pericardium: There is no pericardial effusion. Aorta: There is no dilatation of the ascending aorta. There is no dilatation of the aortic root. Venous: The inferior vena cava is dilated. Measurements Chambers 2D Name Value Normal Range IVSd (2D) 0.83 cm (0.6 - 1.1) LVPWd (2D) 0.89 cm (0.6 - 1.1) LVIDd (2D) 6.97 cm (3.7 - 5.6) LVIDs (2D) 6.29 cm (2 - 3.8) LV FS (2D) 9.75 % - EF Teichholz (2D) 20.75 % - Ao root diameter (2D) 3.18 cm (2 - 3.7) Volumes/Mass Name Value Normal Range LA ESV SP 4CH (A/L) 102.95 ml - LA ESV SP 2CH (A/L) 148.69 ml - LA ESV BP (A/L) 128.54 ml - LA ESV BP (A/L) index 69.86 ml/m2 - LA ESV SP 4CH (MOD) 97.53 ml - LA ESV SP 2CH (MOD) 134.72 ml - LA ESV BP (MOD) 118.72 ml - LA ESV BP (MOD) index 64.52 ml/m2 - LV EDV SP 4CH (MOD) 265.95 ml - LV ESV SP 4CH (MOD) 198.9 ml - EF SP 4CH (MOD) 25.21 % - LV EDV SP 2CH (MOD) 240.8 ml - LV ESV SP 2CH (MOD) 201.36 ml - EF SP 2CH (MOD) 16.38 % - LV EDV BP 254.43 ml - LV ESV BP 204.99 ml - BP EF (MOD) 19.43 % - Diastolic/Systolic Function Name Value Normal Range MV E-wave Vmax 0.86 m/sec - MV deceleration time 172.86 msec - MV A-wave Vmax 0.44 m/sec - MV E:A ratio 1.94 ratio - Aortic Valve Name Value Normal Range AV Vmax 0.87 m/sec - AV VTI 17.36 cm - AV peak gradient 3.03 mmHg - AV mean gradient 1.87 mmHg - LVOT diameter 2.15 cm - LVOT Vmax 0.79 m/sec - LVOT VTI 10.29 cm - LVOT peak gradient 2.53 mmHg - LVOT mean gradient 1.07 mmHg - SV LVOT 37.26 ml - CHARLES (continuity Vmax) 3.31 cm2 - CHARLES (continuity VTI) 2.15 cm2 - AR PHT 930.2 msec - AR peak gradient 33.96 mmHg - Ascending Ao 3.39 cm - Mitral Valve Name Value Normal Range MV Vmax 0.95 m/sec - MV VTI 20.87 cm - MV peak gradient 3.65 mmHg - MV mean gradient 1.09 mmHg - MV PHT 58.55 msec - MVA (PHT) 3.76 cm2 - MVA (continuity VTI) 1.79 cm2 - Tricuspid Valve Name Value Normal Range TR Vmax 3.65 m/sec - TR peak gradient 53 mmHg - RAP 8 mmHg - RVSP 61 mmHg - IVC diameter 2.47 cm (1.2 - 2.3) Pulmonic Valve/Qp:Qs Name Value Normal Range PV Vmax 0.77 m/sec - PV VTI 15.61 cm - PV peak gradient 2.38 mmHg - PV mean gradient 1.17 mmHg - CT end-diastolic Vmax 1.4 m/sec - RVOT Vmax 0.56 m/sec - RVOT VTI 9.24 cm - RVOT peak gradient 1.27 mmHg - Estevez/IV: IV Catheter Type [Right Peripheral IV Forearm] IV Catheter Type [Left Peripheral IV Antecubital] Active Medications - Current Medications Current Medications: Generic Name Dose Route Start Last Admin Trade Name Freq PRN Reason Stop Dose Admin Acetaminophen 650 mg 09/03/19 00:06 Tylenol PO Q4H PRN Pain MILD(1-3)/Fever >100.5/BLANKENSHIP Apixaban 5 mg 09/04/19 10:00 09/04/19 11:40 Eliquis PO 5 mg DAILY BANDAR Administration Protocol Azithromycin 500 mg 09/03/19 22:00 09/04/19 22:57 Zithromax PO 09/06/19 21:59 Not Given QHS BANDAR Dexamethasone 6 mg 09/03/19 10:00 09/04/19 11:41 Decadron PO 6 mg DAILY BANDAR Administration Famotidine 20 mg 09/03/19 10:00 09/04/19 22:57 Pepcid PO Not Given BID BANDAR Finasteride 5 mg 09/04/19 10:00 09/04/19 11:39 Proscar PO 5 mg DAILY BANDAR Administration Furosemide 40 mg 09/03/19 06:00 09/05/19 08:24 Lasix IV 40 mg 0600,1800 BANDAR Administration Hydromorphone HCl 0.5 mg 09/03/19 00:06 09/04/19 13:05 Dilaudid IV 0.5 mg Q3H PRN Administration Pain , Severe (7-10) Ceftriaxone Sodium 2 gm in 100 mls @ 200 mls/hr 09/03/19 10:00 09/04/19 11:41 Rocephin/Ns 2 Gm/100 Ml IV 09/07/19 10:29 200 mls/hr Q24HR BANDAR Administration Protocol Norepinephrine 8 mg/ Sodium 250 mls @ 3.75 mls/hr 09/04/19 23:00 09/05/19 06:41 Chloride IV 30 mcg/min TITR BANDAR 56.25 mls/hr Administration Protocol 2 MCG/MIN Epinephrine 16 mg/ Sodium 250 mls @ 1.875 mls/hr 09/04/19 23:45 09/05/19 00:49 Chloride IV 10 mcg/min TITR BANDAR 9.375 mls/hr Titration Protocol 2 MCG/MIN Sodium Chloride 1,000 mls @ 150 mls/hr 09/05/19 00:45 09/05/19 00:48 Nacl 0.9% 1000 Ml IV 150 mls/hr DIRECT BANDAR Administration Dopamine HCl/Dextrose 800 mg in 250 mls @ 2.739 mls/hr 09/05/19 01:00 09/05/19 06:51 Intropin Drip 800 Mg/D5w 250 Ml IV 2 mcg/kg/min TITR BANDAR 2.739 mls/hr Titration Protocol 2 MCG/KG/MIN Sodium Bicarbonate 150 meq/ 1,150 mls @ 200 mls/hr 09/05/19 01:00 09/05/19 01:42 Sodium Chloride IV 200 mls/hr DIRECT BANDAR Administration Insulin Human Lispro 0 unit 09/03/19 08:00 09/04/19 23:38 Humalog SUB-Q Not Given ACHS BANDAR Protocol Lisinopril 10 mg 09/04/19 10:00 09/04/19 11:43 Zestril PO 10 mg DAILY BANDAR Administration Losartan Potassium 50 mg 09/03/19 10:00 09/04/19 11:40 Cozaar PO 50 mg QDAY BANDAR Administration Metoprolol Succinate 50 mg 09/04/19 10:00 09/04/19 12:38 Metoprolol Xl PO 50 mg DAILY BANDAR Administration Ondansetron HCl 4 mg 09/03/19 00:06 09/04/19 13:05 Zofran IV 4 mg Q8H PRN Administration Nausea And Vomiting Oxycodone/Acetaminophen 1 tab 09/03/19 00:06 09/03/19 09:37 Percocet 5/325 PO 1 tab Q6H PRN Administration Pain, Moderate (4-6) Sertraline HCl 50 mg 09/04/19 10:00 09/04/19 11:40 Zoloft PO 50 mg QDAY BANDAR Administration Sodium Chloride 10 ml 09/03/19 10:00 09/04/19 22:20 Sodium Chloride Flush Syringe 10 Ml IV 10 ml BID BANDAR Administration Sodium Chloride 10 ml 09/03/19 00:06 Sodium Chloride Flush Syringe 10 Ml IV PRN PRN LINE FLUSH
--- NOTE | 2019-09-05 09:45 | Progress Note ---
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 - patient follows with Dr Prince Livingston at [facility] Cardiac arrest Patient found pulseless and unresponsive while in the ED Multiple AICD shocks earlier for sustained VT [employer] AICD Last device interrogation 07/25/2019 - normal function Paroxysmal atrial fibrillation End-stage COPD History of cocaine abuse Recommendations: Supportive cardiac care Check UDS Resume po amiodarone Will get [employer] to interrogate device Prognosis is very poor Subjective Date of service: 09/05/19 Principal diagnosis: Cardiac arrest Interval history: Patient is currently intubated, on multiple pressors Objective Vital Signs Temp Pulse Resp BP BP Pulse Ox 09/05/19 07:32 95 H 24 116/64 94 09/05/19 07:30 95 H 116/64 96 09/05/19 07:15 101 H 24 116/74 94 09/05/19 06:45 108 H 24 130/84 91 09/05/19 06:30 104 H 24 119/76 09/05/19 06:15 102 H 20 105/70 92 09/05/19 06:00 102 H 20 105/65 92 09/05/19 05:45 100 H 20 97/61 93 09/05/19 05:30 96 H 21 87/51 94 09/05/19 05:15 95 H 20 78/46 09/05/19 05:00 101 H 19 83/50 94 09/05/19 04:55 101 H 91/57 96 09/05/19 04:45 104 H 15 91/57 96 09/05/19 04:30 104 H 22 102/61 95 09/05/19 04:15 106 H 23 106/68 95 09/05/19 04:00 101 H 22 104/67 94 09/05/19 03:45 94 H 19 101/60 93 09/05/19 03:30 90 18 97/60 92 09/05/19 03:15 90 21 98/61 96 09/05/19 03:00 90 20 98/60 95 09/05/19 02:51 89 20 96 09/05/19 02:30 91 H 21 100/61 96 09/05/19 02:15 90 22 101/58 96 09/05/19 02:00 90 21 105/59 95 09/05/19 01:45 90 20 100/63 96 09/05/19 01:31 87 22 83/62 94 09/05/19 01:15 95 H 20 80/56 94 09/05/19 01:00 72 21 79/48 89 09/05/19 00:55 72 77/47 91 20 00:45 73 20 77/47 92 09/05/19 00:30 76 21 78/50 91 09/05/19 00:15 76 21 77/49 89 09/05/19 00:00 79 22 83/52 89 09/04/19 23:45 82 23 90/58 89 09/04/19 23:42 100.4 F H 09/04/19 23:37 81 22 80/50 90 09/04/19 23:30 79 22 80/50 82 L 09/04/19 23:15 80 24 76/42 88 09/04/19 23:00 80 23 74/45 88 09/04/19 22:45 82 23 73/35 88 09/04/19 22:31 84 21 80/41 87 09/04/19 22:15 91 H 21 95/48 84 09/04/19 22:14 92 H 20 113/64 09/04/19 21:45 92 H 22 113/64 92 09/04/19 21:30 93 H 20 113/64 90 09/04/19 21:15 93 H 19 110/74 92 09/04/19 21:00 93 H 20 110/74 90 09/04/19 20:45 92 H 19 118/82 92 20 20:31 70 100 09/04/19 20:30 93 H 19 118/82 92 09/04/19 20:15 91 H 17 120/48 94 20 20:01 93 H 16 120/48 93 20 19:45 101 H 17 123/77 96 20 19:30 93 H 16 123/77 95 20 19:15 93 H 16 122/94 98 09/04/19 19:01 92 H 14 122/94 92 09/04/19 17:55 76 14 104/43 97 20 17:52 77 101/53 97 20 17:28 58 L 77/16 20 16:45 76 87/32 92 09/04/19 16:38 75 96/30 89 09/04/19 15:55 86 67/23 83 L 09/04/19 15:05 52 L 113/93 09/04/19 14:48 75 09/04/19 14:41 12 71/17 09/04/19 14:36 79 126/78 09/04/19 12:38 75 118/73 09/04/19 11:43 75 118/73 09/04/19 11:40 72 118/73 09/04/19 10:17 74 34 H 109/79 97 - Physical Examination HEENT: Positive: PERRL Neck: Positive: neck supple Cardiac: Positive: Reg Rate and Rhythm Lungs: Positive: Ventilated Respirations Neuro: Positive: Grossly Intact Abdomen: Positive: Soft Skin: Positive: Clear Extremities: Absent: edema - Labs and Meds Cardiac Enzymes 09/05/19 Range/Units 04:02 AST 2750 H (5-40) units/L Comprehensive Metabolic Panel 09/05/19 Range/Units 04:02 Sodium 143 (137-145) mmol/L Potassium 5.7 H (3.6-5.0) mmol/L Chloride 102.6 (98-107) mmol/L Carbon Dioxide 19 L (22-30) mmol/L BUN 53 H (9-20) mg/dL Creatinine 2.6 H D (0.8-1.5) mg/dL Glucose 109 H (75-100) mg/dL Calcium 8.3 L D (8.4-10.2) mg/dL AST 2750 H (5-40) units/L ALT 1466 H (7-56) units/L Alkaline Phosphatase 134 H (35-129) units/L Total Protein 6.6 (6.3-8.2) g/dL Albumin 2.7 L (3.9-5) g/dL - Imaging and Cardiology EKG: report reviewed
[2019-09-05] MEDS ORDERED: NORepinephrine/NS 4 MG-250 ML 0 MG/0 ML BAG IV ONE ×2 (11:15→20:52)
[2019-09-05] MEDS: INSULIN LISPRO 100 UNIT/ML SUB-Q SCH ×3 (11:18→16:40)
[2019-09-05] MEDS ORDERED: cefTRIAXone/NS 2 GM/100 ML 2 GM/100 ML BAG IV ONE (11:44)
[2019-09-05] MEDS: cefTRIAXone/NS 2 GM/100 ML 2 GM/100 ML BAG IV SCH (11:49)
--- NOTE | 2019-09-05 13:17 | Consultation ---
History of Present Illness - Reason for Consult Consult date: 09/05/19 Critical Care Requesting physician: TRE LOCK - History of Present Illness 69 y/o male with cardiomyopathy, followed by [facility], admitted several days ago with dyspnea and shortness of breath. Had been holding in the ED for days secondary to no beds on floor. Patient has had multiple runs of VTACH that has required shocking with is AICD. On yesterday patient was found down on the floor in cardiac arrest (what sounds like PEA). He was actually coded several times and found to have a pH of less than 7. Patient intubated and now on 3 pressors with one of those being epinephrine. Per notes, IMS has spoken with the family several times in regards to patients poor prognosis and they request that he remain full code. He is currently not on sedation. Past History Past Medical History: atrial fib, heart failure Medications and Allergies Allergies Allergy/AdvReac Type Severity Reaction Status Date / Time No Known Allergies Allergy Unverified 09/02/19 05:22 Home Medications Medication Instructions Recorded Confirmed Last Taken Type Amiodarone [Cordarone 200 MG TAB] 200 mg PO DAILY 09/03/19 09/03/19 Unknown History Apixaban [Eliquis] 5 mg PO DAILY 09/03/19 09/03/19 Unknown History Finasteride 5 mg PO DAILY 09/03/19 09/03/19 Unknown History Furosemide [Lasix TAB] 20 mg PO DAILY 09/03/19 09/03/19 Unknown History Metoprolol Xl [Metoprolol 50 mg PO DAILY 09/03/19 09/03/19 Unknown History SUCCINATE ER TAB] Sertraline [Zoloft] 50 mg PO QDAY 09/03/19 09/03/19 Unknown History lisinopriL [Zestril TAB] 10 mg PO DAILY 09/03/19 09/03/19 Unknown History Active Meds: Active Medications Acetaminophen (Tylenol) 650 mg PO Q4H PRN PRN Reason: Pain MILD(1-3)/Fever >100.5/BLANKENSHIP Amiodarone HCl (Cordarone) 200 mg PO BID [facility] Apixaban (Eliquis) 5 mg PO DAILY [facility]AR; Protocol Last Admin: 09/04/19 11:40 Dose: 5 mg Documented by: Azithromycin (Zithromax) 500 mg PO QHS [facility] Stop: 09/06/19 21:59 Last Admin: 09/04/19 22:57 Dose: Not Given Documented by: Dexamethasone (Decadron) 6 mg PO DAILY B[facility]AR Last Admin: 09/04/19 11:41 Dose: 6 mg Documented by: Famotidine (Pepcid) 20 mg PO BID BANDAR Last Admin: 09/04/19 22:57 Dose: Not Given Documented by: Finasteride (Proscar) 5 mg PO DAILY B[facility]AR Last Admin: 09/04/19 11:39 Dose: 5 mg Documented by: Furosemide (Lasix) 40 mg IV 0600,1800 B[facility]AR Last Admin: 09/05/19 08:24 Dose: 40 mg Documented by: Hydromorphone HCl (Dilaudid) 0.5 mg IV Q3H PRN PRN Reason: Pain , Severe (7-10) Last Admin: 09/04/19 13:05 Dose: 0.5 mg Documented by: Ceftriaxone Sodium (Rocephin/Ns 2 Gm/100 Ml) 2 gm in 100 mls @ 200 mls/hr IV Q24HR [facility]; Protocol Stop: 09/07/19 10:29 Last Admin: 09/05/19 11:49 Dose: 200 mls/hr Documented by: Norepinephrine 8 mg/ Sodium (Chloride) 250 mls @ 3.75 mls/hr IV TITR [facility]; Protocol Last Admin: 09/05/19 11:49 Dose: 30 mcg/min, 56.25 mls/hr Documented by: Epinephrine 16 mg/ Sodium (Chloride) 250 mls @ 1.875 mls/hr IV TITR BANDAR; Protocol Last Titration: 09/05/19 00:49 Dose: 10 mcg/min, 9.375 mls/hr Documented by: Sodium Chloride (Nacl 0.9% 1000 Ml) 1,000 mls @ 150 mls/hr IV DIRECT [facility] Last Admin: 09/05/19 00:48 Dose: 150 mls/hr Documented by: Dopamine HCl/Dextrose (Intropin Drip 800 Mg/D5w 250 Ml) 800 mg in 250 mls @ 2.739 mls/hr IV TITR [facility]AR; Protocol Last Titration: 09/05/19 06:51 Dose: 2 mcg/kg/min, 2.739 mls/hr Documented by: Sodium Bicarbonate 150 meq/ (Sodium Chloride) 1,150 mls @ 200 mls/hr IV DIRECT BANDAR Last Admin: 09/05/19 01:42 Dose: 200 mls/hr Documented by: Insulin Human Lispro (Humalog) 0 unit SUB-Q ACHS [facility]; Protocol Last Admin: 09/05/19 11:41 Dose: Not Given Documented by: Ondansetron HCl (Zofran) 4 mg IV Q8H PRN PRN Reason: Nausea And Vomiting Last Admin: 09/04/19 13:05 Dose: 4 mg Documented by: Oxycodone/Acetaminophen (Percocet 5/325) 1 tab PO Q6H PRN PRN Reason: Pain, Moderate (4-6) Last Admin: 09/03/19 09:37 Dose: 1 tab Documented by: Sertraline HCl (Zoloft) 50 mg PO QDAY [facility] Last Admin: 09/04/19 11:40 Dose: 50 mg Documented by: Sodium Chloride (Sodium Chloride Flush Syringe 10 Ml) 10 ml IV BID [facility] Last Admin: 09/04/19 22:20 Dose: 10 ml Documented by: Sodium Chloride (Sodium Chloride Flush Syringe 10 Ml) 10 ml IV PRN PRN PRN Reason: LINE FLUSH Review of Systems ROS unobtainable: due to endotracheal tube, due to mental status Exam - Constitutional Vitals: Temp Pulse Resp BP Pulse Ox 100.4 F H 95 H 24 116/64 94 09/04/19 23:42 09/05/19 07:32 09/05/19 07:32 09/05/19 07:32 09/05/19 07:32 Results - Labs CBC & Chem 7: 09/04/19 03:26 09/05/19 04:02 Labs: Abnormal lab results 09/04/19 09/04/19 09/04/19 Range/Units 15:42 21:38 23:46 ABG pH 6.947 L* 7.030 L* (7.350-7.450) pH Units ABG pO2 31.4 L* 91.1 H (80.0-90.0) mm Hg ABG HCO3 16.9 L 14.3 L (20.0-26.0) mmol/L ABG O2 Saturation 26.3 L 92.0 L (95.0-99.0) % ABG Base Excess -15.8 L -16.3 L (-2.0-3.0) mmol/L ABG Hemoglobin 11.6 L 11.9 L (14.0-18.0) gm/dl Oxyhemoglobin 25.6 L 89.5 L (95.0-99.0) % Potassium (3.6-5.0) mmol/L Carbon Dioxide (22-30) mmol/L BUN (9-20) mg/dL Creatinine (0.8-1.5) mg/dL Glucose (75-100) mg/dL POC Glucose < 40 L (70-105) Calcium (8.4-10.2) mg/dL Total Bilirubin (0.1-1.2) mg/dL AST (5-40) units/L ALT (7-56) units/L Alkaline Phosphatase (35-129) units/L Albumin (3.9-5) g/dL 09/05/19 09/05/19 09/05/19 Range/Units 00:39 04:02 05:45 ABG pH 7.154 L* (7.350-7.450) pH Units ABG pO2 79.3 L (80.0-90.0) mm Hg ABG HCO3 (20.0-26.0) mmol/L ABG O2 Saturation (95.0-99.0) % ABG Base Excess -8.3 L (-2.0-3.0) mmol/L ABG Hemoglobin 11.7 L (14.0-18.0) gm/dl Oxyhemoglobin 92.7 L (95.0-99.0) % Potassium 5.7 H (3.6-5.0) mmol/L Carbon Dioxide 19 L (22-30) mmol/L BUN 53 H (9-20) mg/dL Creatinine 2.6 H D (0.8-1.5) mg/dL Glucose 109 H (75-100) mg/dL POC Glucose 111 H (70-105) Calcium 8.3 L D (8.4-10.2) mg/dL Total Bilirubin 2.40 H (0.1-1.2) mg/dL AST 2750 H (5-40) units/L ALT 1466 H (7-56) units/L Alkaline Phosphatase 134 H (35-129) units/L Albumin 2.7 L (3.9-5) g/dL 09/05/19 Range/Units 08:58 ABG pH (7.350-7.450) pH Units ABG pO2 (80.0-90.0) mm Hg ABG HCO3 (20.0-26.0) mmol/L ABG O2 Saturation (95.0-99.0) % ABG Base Excess (-2.0-3.0) mmol/L ABG Hemoglobin (14.0-18.0) gm/dl Oxyhemoglobin (95.0-99.0) % Potassium (3.6-5.0) mmol/L Carbon Dioxide (22-30) mmol/L BUN (9-20) mg/dL Creatinine (0.8-1.5) mg/dL Glucose (75-100) mg/dL POC Glucose 123 H (70-105) Calcium (8.4-10.2) mg/dL Total Bilirubin (0.1-1.2) mg/dL AST (5-40) units/L ALT (7-56) units/L Alkaline Phosphatase (35-129) units/L Albumin (3.9-5) g/dL - Imaging and Cardiology Chest x-ray: image reviewed CT scan - chest: image reviewed Assessment and Plan 69 y/o male with heart failure now with multiple cardiac arrests, acute respiratory failure, renal failure, shock liver and severe metabolic acidosis with post arrest encephalopathy 1. CV-Cards following. per their note poor prognosis. on amio and following. Currently on 3 pressors to maintain adequate BP's if possible. Unable to diurese at this time 2. Resp-failure secondary to cardiac arrest. Ventilated, not sedated. Very Low PF ratio. CXR is unchanged. RT was able to increase PEEP 10 without compromising BP per report. Will obtain repeat ABG today. 3. Renal-Worsening renal failure, oliguric and worsening metabolic acidosis. has responded to bicarb drip. Will continue. Follow up renal recs but needs HD, k was 5.7 this am. Not a candidate however given pressor requirement, would crash on HD. CRRT not available here. 4. GI-shock liver with elevated transminases from from hypotension. Suggest c hecking INR to eval synthetic function 5. Needs repeat chemistry, agree with q6 hour checks 6. Spoke to ED nurse overnight and ordered accuchecks q6. Has had to have several amps of D50. NPO secondary to pressor requirement 7. No sure what dex is for but would stop. If concern for adrenal insuff, hydrocortisone would be a better choice. 8. Would discontinue all pain meds or any other sedative medications. Given depressed mental state OVerall prognosis is poor. Will attempt to speak with family about medical decisions. CCT 31 minutes.
[2019-09-05] MEDS: SERTRALINE 50 MG TAB PO SCH (14:28)
[2019-09-05] MEDS: FAMOTIDINE 20 MG TAB PO SCH (14:28)
[2019-09-05] MEDS: APIXABAN 5 MG TAB PO SCH (14:28)
[2019-09-05] MEDS: FINASTERIDE 5 MG TAB PO SCH (14:28)
[2019-09-05] MEDS: DEXAMETHASONE 4 MG TAB PO SCH (14:28)
[2019-09-06] MEDS: INSULIN LISPRO 100 UNIT/ML SUB-Q SCH ×5 (02:08→21:20)
[2019-09-06] MEDS: FAMOTIDINE 20 MG TAB PO SCH ×2 (02:09→13:42)
[2019-09-06] MEDS: AMIODARONE 200 MG TAB PO SCH ×3 (02:09→22:45)
[2019-09-06] MEDS: SODIUM BICARBONATE IV SCH (02:37)
[2019-09-06] MEDS: SODIUM CHLORIDE 0.45% IV SCH (02:37)
[2019-09-06 03:46] LABS: Amphetamine Screen,Urine PRESUMPTIVE NEGATIVE; Benzodiazepines Screen,Urine PRESUMPTIVE NEGATIVE; Cannabinoid Screen,Urine PRESUMPTIVE NEGATIVE; Cocaine Screen,Urine PRESUMPTIVE NEGATIVE; Methadone Screen,Urine PRESUMPTIVE NEGATIVE; Opiate Screen,Urine PRESUMPTIVE NEGATIVE
[2019-09-06] MEDS: NORepinephrine 8 MG in SODIUM CHLORIDE 0.9% 250ML 242 ML IV SCH ×4 (04:42→21:21)
[2019-09-06] MEDS: EPINEPHrine 1 MG/1 ML 16 MG in SODIUM CHLORIDE 0.9% 250ML 234 ML IV SCH (04:43)
[2019-09-06 04:45] LABS: Hematocrit 39.2 % (35.5-45.6); Hemoglobin 12.2 gm/dl (11.8-15.2); Mean Corpuscular HGB Conc 31 % (32-34); Mean Corpuscular Volume 83 fl (84-94); Platelet Count 168 K/mm3 (140-440); Red Blood Count 4.72 M/mm3 (3.65-5.03); Red Cell Distribution Width 18.7 % (13.2-15.2)
[2019-09-06 05:01] LABS: Albumin 2.1 g/dL (3.9-5); Calcium 7.6 mg/dL (8.4-10.2)
[2019-09-06 05:17] LABS: ABG Base Excess -3.7 mmol/L (-2.0-3.0); ABG HCO3 22.8 mmol/L (20.0-26.0); ABG Methemoglobin 0.6 % (0.0-1.5); ABG PCO2 46.7 mm Hg; ABG PH 7.306 pH Units (7.350-7.450); ABG PO2 87.7 mm Hg (80.0-90.0)
[2019-09-06 06:34] LABS: Basophils % (Manual) 0 % (0.0-1.8); Eosinophils % (Manual) 0 % (0.0-4.3); Total Cells Counted 100
[2019-09-06 06:35] LABS: Burr Cells 1+; Ovalocytes 2+; Schistocytes Few; Target Cells 1+
[2019-09-06 06:36] LABS: Poikilocytosis 2+
[2019-09-06 06:37] LABS: Platelet Estimate Consistent w Auto; Spherocytes Rare
[2019-09-06] MEDS: FUROSEMIDE 40 MG/4 ML INJ IV SCH ×2 (06:44→17:43)
[2019-09-06] MEDS: AZITHROMYCIN 250 MG TAB PO SCH (06:44)
[2019-09-06] MEDS ORDERED: FUROSEMIDE 40 MG/4 ML INJ ONE (06:47)
[2019-09-06] MEDS ORDERED: INSULIN LISPRO 100 UNIT/ML SUB-Q ONE (10:51)
[2019-09-06] MEDS ORDERED: FAMOTIDINE 20 MG/2 ML INJ IV ONE (10:53)
[2019-09-06] MEDS ORDERED: cefTRIAXone/NS 2 GM/100 ML 2 GM/100 ML BAG IV ONE (10:53)
[2019-09-06] MEDS ORDERED: APIXABAN 5 MG TAB ONE (10:53)
[2019-09-06] MEDS: APIXABAN 5 MG TAB PO SCH (10:57)
[2019-09-06] MEDS: cefTRIAXone/NS 2 GM/100 ML 2 GM/100 ML BAG IV SCH (10:58)
[2019-09-06] MEDS: FAMOTIDINE 20 MG/2 ML INJ IV SCH (10:58)
[2019-09-06] MEDS ORDERED: AZITHROMYCIN 500 MG in SODIUM CHLORIDE 0.9% 250ML 250 ML IV ONE (11:00)
[2019-09-06] MEDS ORDERED: SODIUM BICARBONATE 150 MEQ in SODIUM CHLORIDE 0.45% 1000 ML 1,000 ML IV ONE (11:00)
--- NOTE | 2019-09-06 12:08 | Progress Note ---
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 - patient follows with Dr Prince Livingston at [place] Cardiac arrest Patient found pulseless and unresponsive while in the ED Multiple AICD shocks earlier for sustained VT On po amiodarone Cardiogenic shock On multiple pressors including levophed and epinephrine Acute renal failure Worsening renal function Scrip-t AICD Last device interrogation 07/25/2019 - normal function Paroxysmal atrial fibrillation End-stage COPD History of cocaine abuse UDS negative this admission Recommendations: Supportive cardiac care Patient already on alpha and beta stimulators (norepi and epi) Prognosis remains poor Subjective Date of service: 09/06/19 Principal diagnosis: Cardiac arrest Interval history: Patient continues to be intubated and currently on 2 pressors - levophed and epinephrine His current MAP is 65 Objective Vital Signs Temp Pulse Resp BP BP Pulse Ox 09/06/19 11:51 105 H 24 85/54 94 09/06/19 11:45 91 H 24 85/54 94 09/06/19 11:41 90 24 83/56 94 09/06/19 11:35 90 24 83/56 94 09/06/19 11:30 90 24 83/56 94 09/06/19 11:25 90 24 85/54 94 09/06/19 11:21 89 24 87/59 94 09/06/19 11:15 89 24 87/59 94 09/06/19 11:11 88 24 78/52 94 09/06/19 11:05 88 24 78/52 94 09/06/19 11:00 91 H 24 78/52 94 09/06/19 10:55 88 24 85/54 93 09/06/19 10:51 88 24 85/54 93 09/06/19 10:45 87 24 85/54 93 09/06/19 10:41 86 24 82/54 93 09/06/19 10:35 86 24 82/54 93 09/06/19 10:30 86 24 82/54 94 09/06/19 10:25 85 24 78/56 94 09/06/19 10:21 85 24 78/56 94 09/06/19 10:15 86 24 78/56 93 09/06/19 10:11 85 24 81/58 94 09/06/19 10:05 86 24 81/58 94 09/06/19 10:00 87 24 81/58 95 07/19/20 09:55 86 24 91/65 95 07/19/20 09:51 84 24 91/65 95 07/19/20 09:45 83 24 91/65 96 07/19/20 09:41 83 24 86/58 96 07/19/20 09:35 81 24 86/58 95 07/19/20 09:30 81 24 86/58 95 07/19/20 09:25 80 24 85/49 94 07/19/20 09:21 81 24 85/49 94 07/19/20 09:15 83 24 93/68 95 07/19/20 09:11 81 24 93/68 96 07/19/20 09:05 88 24 93/68 96 07/19/20 09:04 93.1 F L 20 09:00 86 24 93/68 95 07/19/20 08:55 84 24 105/77 96 07/19/20 08:54 24 09/05/20 08:51 84 24 105/77 96 07/19/20 08:45 85 22 105/77 96 07/19/20 08:41 82 18 104/68 96 07/19/20 08:30 84 24 104/68 96 07/19/20 08:15 83 24 101/80 96 07/19/20 08:06 84 101/77 97 07/19/20 08:00 83 24 101/77 96 07/19/20 07:50 93.5 F L 20 07:45 81 24 100/74 96 07/19/20 07:30 80 24 98/68 96 07/19/20 07:15 79 24 105/67 96 07/19/20 07:00 82 24 100/75 97 07/19/20 06:30 84 24 98/80 96 07/19/20 06:15 82 24 107/74 96 07/19/20 06:00 83 24 107/74 97 07/19/20 05:45 83 24 105/72 97 07/19/20 05:31 85 24 112/71 97 07/19/20 05:15 83 24 119/74 96 07/19/20 05:00 86 24 112/85 96 07/19/20 04:45 78 23 107/78 97 07/19/20 04:34 87 114/85 97 07/19/20 04:30 81 24 114/85 97 09/06/19 04:15 82 24 111/76 96 09/06/19 04:00 89 23 119/79 97 09/06/19 03:45 89 24 122/87 96 09/06/19 03:30 88 24 120/84 97 09/06/19 03:15 88 24 116/86 96 09/06/19 03:00 89 24 118/89 09/06/19 02:45 89 24 115/83 96 09/06/19 02:30 83 24 115/86 94 09/06/19 02:15 86 24 116/88 93 09/06/19 02:00 87 23 110/83 93 09/06/19 01:45 96 H 24 119/92 09/06/19 01:30 90 24 118/90 09/06/19 01:15 92 H 23 124/86 91 09/06/19 01:00 89 23 129/93 94 09/06/19 00:45 86 24 123/83 93 09/06/19 00:30 88 23 117/86 09/06/19 00:15 87 23 112/83 09/06/19 00:10 88 108/75 98 09/06/19 00:00 83 23 108/75 92 09/05/19 23:55 92 H 24 116/90 97 09/05/19 23:45 93 H 23 116/90 91 20 23:43 94 H 24 106/89 96 20 23:30 95 H 24 106/89 96 20 23:15 93 H 23 128/86 92 20 23:00 94 H 23 124/95 20 22:45 94 H 23 123/94 1820 22:30 101 H 24 130/96 94 0718/20 22:15 90 24 130/89 93 0718/20 22:00 99 H 24 124/86 92 1820 21:45 93 H 24 129/87 93 0718/20 21:31 91 H 24 110/82 92 1820 21:15 93 H 23 123/88 0718/20 21:01 94 H 24 120/78 92 0718/20 21:00 92 H 126/89 97 1820 20:45 92 H 24 126/89 92 07/18/20 20:30 92 H 24 123/93 18/20 20:15 92 H 24 119/89 95 18/20 20:00 91 H 24 122/91 18/20 19:45 98 H 24 129/93 18/20 19:30 99 H 24 129/93 18/20 19:15 100 H 24 124/93 94 18/20 19:00 99 H 24 122/85 93 1820 18:45 99 H 24 126/90 93 1820 18:35 99 H 21 126/93 96 18/20 18:15 99 H 24 128/93 96 1820 18:00 100 H 24 130/95 1820 17:45 101 H 24 133/98 1820 17:40 99 H 130/95 96 1820 17:30 102 H 24 137/99 20 17:15 101 H 24 139/101 09/05/19 17:01 85 24 122/89 93 1820 16:45 90 24 96/66 91 1820 16:31 95 H 24 105/71 91 1820 16:15 99 H 24 132/95 1820 16:00 99 H 24 131/94 1820 15:45 99 H 24 133/92 91 1820 15:30 98 H 24 127/92 1820 15:15 100 H 24 130/83 93 1820 15:00 99 H 24 133/95 1820 14:45 99 H 24 133/94 1820 14:30 99 H 24 135/93 1820 14:15 100 H 24 134/95 18/20 14:00 100 H 24 127/88 1820 13:45 103 H 24 120/93 94 1820 13:30 100 H 24 134/95 18/20 13:15 100 H 24 133/92 1820 13:00 101 H 24 133/93 95 18/20 12:45 100 H 24 135/90 1820 12:30 103 H 24 119/84 95 07/18/20 12:15 97 H 24 134/93 91 - Physical Examination HEENT: Positive: PERRL Neck: Positive: neck supple Cardiac: Positive: Reg Rate and Rhythm Lungs: Positive: Ventilated Respirations Neuro: Positive: Grossly Intact Abdomen: Positive: Soft Skin: Positive: Clear Extremities: Absent: edema - Labs and Meds Cardiac Enzymes 09/06/19 Range/Units 04:00 AST 1929 H (5-40) units/L CBC 09/06/19 Range/Units 04:00 WBC 14.7 H (4.5-11.0) K/mm3 RBC 4.72 (3.65-5.03) M/mm3 Hgb 12.2 (11.8-15.2) gm/dl Hct 39.2 (35.5-45.6) % Plt Count 168 (140-440) K/mm3 Comprehensive Metabolic Panel 09/06/19 Range/Units 04:00 Sodium 144 (137-145) mmol/L Potassium 4.6 (3.6-5.0) mmol/L Chloride 105.1 (98-107) mmol/L Carbon Dioxide 25 (22-30) mmol/L BUN 74 H (9-20) mg/dL Creatinine 3.7 H (0.8-1.5) mg/dL Glucose 153 H (75-100) mg/dL Calcium 7.6 L (8.4-10.2) mg/dL AST 1929 H (5-40) units/L ALT 1665 H (7-56) units/L Alkaline Phosphatase 135 H (35-129) units/L Total Protein 6.0 L (6.3-8.2) g/dL Albumin 2.1 L (3.9-5) g/dL - Imaging and Cardiology EKG: report reviewed
[2019-09-06] MEDS: SODIUM BICARBONATE 150 MEQ in SODIUM CHLORIDE 0.45% 1000 ML 1,000 ML IV SCH ×2 (12:35→18:47)
--- NOTE | 2019-09-06 12:46 | Progress Note ---
Assessment and Plan 69 y/o male with heart failure now with multiple cardiac arrests, acute respiratory failure, renal failure, shock liver and severe metabolic acidosis with post arrest encephalopathy 1. CV-Cards following. per their note poor prognosis. on amio and following. Currently on 3 pressors to maintain adequate BP's if possible. Unable to d iurese at this time 2. Resp-failure secondary to cardiac arrest. Ventilated, not sedated. Very L ow PF ratio. CXR is unchanged. RT was able to increase PEEP 10 without compromising BP per report. now down to 80%. Will start to wean PEEP once FiO2 around 40-45%. 3. Renal-Worsening renal failure, non-oliguric now but still worsening metabolic acidosis. has responded to bicarb drip. Will continue. Follow up renal recs but needs HD. K responded to kayexalete therapy. No renal consult listed. Not a candidate however given pressor requirement, would crash on HD. CRRT not available here. 4. GI-shock liver with elevated transminases from from hypotension. Suggest checking INR to eval synthetic function 5. Needs repeat chemistry, agree with q6 hour checks 6. Spoke to ED nurse overnight and ordered accuchecks q6. Has had to have several amps of D50. NPO secondary to pressor requirement 7. If concern for adrenal insuff, hydrocortisone would be a better choice. Will start today. 8. Would discontinue all pain meds or any other sedative medications. Given depressed mental state OVerall prognosis is poor. Will attempt to speak with family about medical decisions. Will attempt to bring patient up today if bed becomes available. CCT 31 minutes. Subjective Date of service: 09/06/19 Principal diagnosis: Cardiac arrest Interval history: Remains unresponsive on vent. No sedation. Down to 80% now. last sat documented at 94. Still on Epi and Dopamine and levo, map is 64. Per chart made urine but BUN and Cr both worse. Objective Vital Signs - 12hr 09/06/19 09/06/19 09/06/19 00:45 01:00 01:15 Temperature Pulse Rate 86 89 92 H Respiratory 24 23 23 Rate Blood Pressure 123/83 129/93 124/86 O2 Sat by Pulse 93 94 91 Oximetry 09/06/19 09/06/19 09/06/19 01:30 01:45 02:00 Temperature Pulse Rate 90 96 H 87 Respiratory 24 24 23 Rate Blood Pressure 118/90 119/92 110/83 O2 Sat by Pulse 93 Oximetry 09/06/19 09/06/19 09/06/19 02:15 02:30 02:45 Temperature Pulse Rate 86 83 89 Respiratory 24 24 24 Rate Blood Pressure 116/88 115/86 115/83 O2 Sat by Pulse 93 94 96 Oximetry 09/06/19 09/06/19 09/06/19 03:00 03:15 03:30 Temperature Pulse Rate 89 88 88 Respiratory 24 24 24 Rate Blood Pressure 118/89 116/86 120/84 O2 Sat by Pulse 96 97 Oximetry 09/06/19 09/06/19 09/06/19 03:45 04:00 04:15 Temperature Pulse Rate 89 89 82 Respiratory 24 23 24 Rate Blood Pressure 122/87 119/79 111/76 O2 Sat by Pulse 96 97 96 Oximetry 09/06/19 09/06/19 09/06/19 04:30 04:34 04:45 Temperature Pulse Rate 81 87 78 Respiratory 24 23 Rate Blood Pressure 114/85 114/85 107/78 O2 Sat by Pulse 97 97 97 Oximetry 09/06/19 09/06/19 09/06/19 05:00 05:15 05:31 Temperature Pulse Rate 86 83 85 Respiratory 24 24 24 Rate Blood Pressure 112/85 119/74 112/71 O2 Sat by Pulse 96 96 97 Oximetry 09/06/19 09/06/19 09/06/19 05:45 06:00 06:15 Temperature Pulse Rate 83 83 82 Respiratory 24 24 24 Rate Blood Pressure 105/72 107/74 107/74 O2 Sat by Pulse 97 97 96 Oximetry 09/06/19 09/06/19 09/06/19 06:30 07:00 07:15 Temperature Pulse Rate 84 82 79 Respiratory 24 24 24 Rate Blood Pressure 98/80 100/75 105/67 O2 Sat by Pulse 96 97 96 Oximetry 09/06/19 09/06/19 09/06/19 07:30 07:45 07:50 Temperature 93.5 F L Pulse Rate 80 81 Respiratory 24 24 Rate Blood Pressure 98/68 100/74 O2 Sat by Pulse 96 96 Oximetry 09/06/19 09/06/19 09/06/19 08:00 08:06 08:15 Temperature Pulse Rate 83 84 83 Respiratory 24 24 Rate Blood Pressure 101/77 101/77 101/80 O2 Sat by Pulse 96 97 96 Oximetry 09/06/19 09/06/19 09/06/19 08:30 08:41 08:45 Temperature Pulse Rate 84 82 85 Respiratory 24 18 22 Rate Blood Pressure 104/68 104/68 105/77 O2 Sat by Pulse 96 96 96 Oximetry 09/06/19 09/06/19 09/06/19 08:51 08:54 08:55 Temperature Pulse Rate 84 84 Respiratory 24 24 24 Rate Blood Pressure 105/77 105/77 O2 Sat by Pulse 96 96 Oximetry 09/06/19 09/06/19 09/06/19 09:00 09:04 09:05 Temperature 93.1 F L Pulse Rate 86 88 Respiratory 24 24 Rate Blood Pressure 93/68 93/68 O2 Sat by Pulse 95 96 Oximetry 09/06/19 09/06/19 09/06/19 09:11 09:15 09:21 Temperature Pulse Rate 81 83 81 Respiratory 24 24 24 Rate Blood Pressure 93/68 93/68 85/49 O2 Sat by Pulse 96 95 94 Oximetry 09/06/19 09/06/19 09/06/19 09:25 09:30 09:35 Temperature Pulse Rate 80 81 81 Respiratory 24 24 24 Rate Blood Pressure 85/49 86/58 86/58 O2 Sat by Pulse 94 95 95 Oximetry 09/06/19 09/06/19 09/06/19 09:41 09:45 09:51 Temperature Pulse Rate 83 83 84 Respiratory 24 24 24 Rate Blood Pressure 86/58 91/65 91/65 O2 Sat by Pulse 96 96 95 Oximetry 09/06/19 09/06/19 09/06/19 09:55 10:00 10:05 Temperature Pulse Rate 86 87 86 Respiratory 24 24 24 Rate Blood Pressure 91/65 81/58 81/58 O2 Sat by Pulse 95 95 94 Oximetry 09/06/19 09/06/19 09/06/19 10:11 10:15 10:21 Temperature Pulse Rate 85 86 85 Respiratory 24 24 24 Rate Blood Pressure 81/58 78/56 78/56 O2 Sat by Pulse 94 93 94 Oximetry 09/06/19 09/06/19 09/06/19 10:25 10:30 10:35 Temperature Pulse Rate 85 86 86 Respiratory 24 24 24 Rate Blood Pressure 78/56 82/54 82/54 O2 Sat by Pulse 94 94 93 Oximetry 09/06/19 09/06/19 09/06/19 10:41 10:45 10:51 Temperature Pulse Rate 86 87 88 Respiratory 24 24 24 Rate Blood Pressure 82/54 85/54 85/54 O2 Sat by Pulse 93 93 93 Oximetry 09/06/19 09/06/19 09/06/19 10:55 11:00 11:05 Temperature Pulse Rate 88 91 H 88 Respiratory 24 24 24 Rate Blood Pressure 85/54 78/52 78/52 O2 Sat by Pulse 93 94 94 Oximetry 09/06/19 09/06/19 09/06/19 11:11 11:15 11:21 Temperature Pulse Rate 88 89 89 Respiratory 24 24 24 Rate Blood Pressure 78/52 87/59 87/59 O2 Sat by Pulse 94 94 94 Oximetry 09/06/19 09/06/19 09/06/19 11:25 11:30 11:35 Temperature Pulse Rate 90 90 90 Respiratory 24 24 24 Rate Blood Pressure 85/54 83/56 83/56 O2 Sat by Pulse 94 94 94 Oximetry 09/06/19 09/06/19 09/06/19 11:41 11:45 11:51 Temperature Pulse Rate 90 91 H 105 H Respiratory 24 24 24 Rate Blood Pressure 83/56 85/54 85/54 O2 Sat by Pulse 94 94 94 Oximetry 09/06/19 12:19 Temperature 95.6 F L Pulse Rate Respiratory Rate Blood Pressure O2 Sat by Pulse Oximetry CBC and BMP: 09/06/19 04:00 09/06/19 04:00 ABG, PT/INR, D-dimer: ABG ABG pH 7.306 pH Units (7.350-7.450) L 09/06/19 04:36 ABG pCO2 46.7 mm Hg 09/06/19 04:36 ABG pO2 87.7 mm Hg (80.0-90.0) 09/06/19 04:36 ABG O2 Saturation 97.0 % (95.0-99.0) 09/06/19 04:36 PT/INR, D-dimer PT 23.0 Sec. (12.2-14.9) H 09/02/19 07:23 INR 2.10 (0.87-1.13) H 09/02/19 07:23 D-Dimer 689.74 ng/mlDDU (0-234) H 09/02/19 Unknown Abnormal lab findings: Abnormal Labs 09/02/19 09/02/19 09/02/19 05:30 07:23 07:23 WBC Hgb 10.7 L Hct 33.8 L MCV 82 L MCH 26 L MCHC RDW 18.1 H Lymph % (Auto) 9.3 L Lymph # 0.5 L Seg Neutrophils % 83.1 H Seg Neuts % (Manual) Lymphocytes % (Manual) Seg Neutrophils # Man Lymphocytes # (Manual) Monocytes # (Manual) PT INR D-Dimer ABG pH ABG pO2 ABG HCO3 19.2 L ABG O2 Saturation ABG Base Excess -4.4 L ABG Hemoglobin 11.3 L Oxyhemoglobin 94.5 L Sodium Potassium Carbon Dioxide 21 L BUN 25 H Creatinine Glucose 119 H POC Glucose Hemoglobin A1c Calcium Phosphorus Total Bilirubin Direct Bilirubin AST ALT Alkaline Phosphatase Lactate Dehydrogenase C-Reactive Protein NT-Pro-B Natriuret Pep Total Protein Albumin 09/02/19 09/02/19 09/02/19 07:23 07:23 09:33 WBC Hgb Hct MCV MCH MCHC RDW Lymph % (Auto) Lymph # Seg Neutrophils % Seg Neuts % (Manual) Lymphocytes % (Manual) Seg Neutrophils # Man Lymphocytes # (Manual) Monocytes # (Manual) PT 23.0 H INR 2.10 H D-Dimer ABG pH ABG pO2 ABG HCO3 ABG O2 Saturation ABG Base Excess ABG Hemoglobin Oxyhemoglobin Sodium Potassium Carbon Dioxide BUN Creatinine Glucose 123 H POC Glucose Hemoglobin A1c Calcium Phosphorus Total Bilirubin 3.00 H Direct Bilirubin 0.9 H AST 43 H ALT Alkaline Phosphatase Lactate Dehydrogenase 252 H C-Reactive Protein 3.80 H NT-Pro-B Natriuret Pep 65776 H Total Protein Albumin 3.0 L 09/02/19 09/03/19 09/03/19 Unknown 00:47 04:25 WBC Hgb 11.2 L Hct MCV 83 L MCH 26 L MCHC 31 L RDW 17.9 H Lymph % (Auto) 8.3 L Lymph # 0.4 L Seg Neutrophils % 89.1 H Seg Neuts % (Manual) Lymphocytes % (Manual) Seg Neutrophils # Man Lymphocytes # (Manual) Monocytes # (Manual) PT INR D-Dimer 689.74 H ABG pH ABG pO2 ABG HCO3 ABG O2 Saturation ABG Base Excess ABG Hemoglobin Oxyhemoglobin Sodium 135 L Potassium Carbon Dioxide 20 L BUN 27 H Creatinine Glucose 157 H POC Glucose Hemoglobin A1c Calcium Phosphorus Total Bilirubin 1.70 H Direct Bilirubin AST ALT Alkaline Phosphatase Lactate Dehydrogenase C-Reactive Protein NT-Pro-B Natriuret Pep Total Protein Albumin 2.5 L 09/03/19 09/03/19 09/03/19 04:25 09:46 16:15 WBC Hgb Hct MCV MCH MCHC RDW Lymph % (Auto) Lymph # Seg Neutrophils % Seg Neuts % (Manual) Lymphocytes % (Manual) Seg Neutrophils # Man Lymphocytes # (Manual) Monocytes # (Manual) PT INR D-Dimer ABG pH ABG pO2 ABG HCO3 ABG O2 Saturation ABG Base Excess ABG Hemoglobin Oxyhemoglobin Sodium Potassium Carbon Dioxide BUN Creatinine Glucose POC Glucose 125 H 173 H Hemoglobin A1c 6.2 H Calcium Phosphorus Total Bilirubin Direct Bilirubin AST ALT Alkaline Phosphatase Lactate Dehydrogenase C-Reactive Protein NT-Pro-B Natriuret Pep Total Protein Albumin 09/03/19 09/04/19 09/04/19 22:17 03:26 03:26 WBC 11.3 H Hgb 11.3 L Hct MCV 82 L MCH 26 L MCHC RDW 18.4 H Lymph % (Auto) Lymph # Seg Neutrophils % Seg Neuts % (Manual) 90.0 H Lymphocytes % (Manual) 4.0 L Seg Neutrophils # Man 10.2 H Lymphocytes # (Manual) 0.5 L Monocytes # (Manual) PT INR D-Dimer ABG pH ABG pO2 ABG HCO3 ABG O2 Saturation ABG Base Excess ABG Hemoglobin Oxyhemoglobin Sodium Potassium Carbon Dioxide 21 L BUN 38 H Creatinine Glucose 126 H POC Glucose 238 H Hemoglobin A1c Calcium Phosphorus Total Bilirubin Direct Bilirubin AST ALT Alkaline Phosphatase Lactate Dehydrogenase C-Reactive Protein NT-Pro-B Natriuret Pep Total Protein Albumin 09/04/19 09/04/19 09/04/19 11:08 15:42 21:38 WBC Hgb Hct MCV MCH MCHC RDW Lymph % (Auto) Lymph # Seg Neutrophils % Seg Neuts % (Manual) Lymphocytes % (Manual) Seg Neutrophils # Man Lymphocytes # (Manual) Monocytes # (Manual) PT INR D-Dimer ABG pH 7.345 L 6.947 L* 7.030 L* ABG pO2 106.7 H 31.4 L* 91.1 H ABG HCO3 18.2 L 16.9 L 14.3 L ABG O2 Saturation 26.3 L 92.0 L ABG Base Excess -6.7 L -15.8 L -16.3 L ABG Hemoglobin 12.0 L 11.6 L 11.9 L Oxyhemoglobin 25.6 L 89.5 L Sodium Potassium Carbon Dioxide BUN Creatinine Glucose POC Glucose Hemoglobin A1c Calcium Phosphorus Total Bilirubin Direct Bilirubin AST ALT Alkaline Phosphatase Lactate Dehydrogenase C-Reactive Protein NT-Pro-B Natriuret Pep Total Protein Albumin 09/04/19 09/05/19 09/05/19 23:46 00:39 04:02 WBC Hgb Hct MCV MCH MCHC RDW Lymph % (Auto) Lymph # Seg Neutrophils % Seg Neuts % (Manual) Lymphocytes % (Manual) Seg Neutrophils # Man Lymphocytes # (Manual) Monocytes # (Manual) PT INR D-Dimer ABG pH ABG pO2 ABG HCO3 ABG O2 Saturation ABG Base Excess ABG Hemoglobin Oxyhemoglobin Sodium Potassium 5.7 H Carbon Dioxide 19 L BUN 53 H Creatinine 2.6 H D Glucose 109 H POC Glucose < 40 L 111 H Hemoglobin A1c Calcium 8.3 L D Phosphorus Total Bilirubin 2.40 H Direct Bilirubin AST 2750 H ALT 1466 H Alkaline Phosphatase 134 H Lactate Dehydrogenase C-Reactive Protein NT-Pro-B Natriuret Pep Total Protein Albumin 2.7 L 09/05/19 09/05/19 09/05/19 05:45 08:58 18:55 WBC Hgb Hct MCV MCH MCHC RDW Lymph % (Auto) Lymph # Seg Neutrophils % Seg Neuts % (Manual) Lymphocytes % (Manual) Seg Neutrophils # Man Lymphocytes # (Manual) Monocytes # (Manual) PT INR D-Dimer ABG pH 7.154 L* ABG pO2 79.3 L ABG HCO3 ABG O2 Saturation ABG Base Excess -8.3 L ABG Hemoglobin 11.7 L Oxyhemoglobin 92.7 L Sodium Potassium Carbon Dioxide BUN Creatinine Glucose POC Glucose 123 H 181 H Hemoglobin A1c Calcium Phosphorus Total Bilirubin Direct Bilirubin AST ALT Alkaline Phosphatase Lactate Dehydrogenase C-Reactive Protein NT-Pro-B Natriuret Pep Total Protein Albumin 09/06/19 09/06/19 09/06/19 02:18 04:00 04:00 WBC 14.7 H Hgb Hct MCV 83 L MCH 26 L MCHC 31 L RDW 18.7 H Lymph % (Auto) Lymph # Seg Neutrophils % Seg Neuts % (Manual) 91.0 H Lymphocytes % (Manual) 3.0 L Seg Neutrophils # Man 13.4 H Lymphocytes # (Manual) 0.4 L Monocytes # (Manual) 0.9 H PT INR D-Dimer ABG pH ABG pO2 ABG HCO3 ABG O2 Saturation ABG Base Excess ABG Hemoglobin Oxyhemoglobin Sodium Potassium Carbon Dioxide BUN 74 H Creatinine 3.7 H Glucose 153 H POC Glucose 165 H Hemoglobin A1c Calcium 7.6 L Phosphorus 5.80 H Total Bilirubin 1.70 H Direct Bilirubin AST 1929 H ALT 1665 H Alkaline Phosphatase 135 H Lactate Dehydrogenase C-Reactive Protein NT-Pro-B Natriuret Pep Total Protein 6.0 L Albumin 2.1 L 09/06/19 09/06/19 04:36 10:58 WBC Hgb Hct MCV MCH MCHC RDW Lymph % (Auto) Lymph # Seg Neutrophils % Seg Neuts % (Manual) Lymphocytes % (Manual) Seg Neutrophils # Man Lymphocytes # (Manual) Monocytes # (Manual) PT INR D-Dimer ABG pH 7.306 L ABG pO2 ABG HCO3 ABG O2 Saturation ABG Base Excess -3.7 L ABG Hemoglobin 12.8 L Oxyhemoglobin 94.6 L Sodium Potassium Carbon Dioxide BUN Creatinine Glucose POC Glucose 144 H Hemoglobin A1c Calcium Phosphorus Total Bilirubin Direct Bilirubin AST ALT Alkaline Phosphatase Lactate Dehydrogenase C-Reactive Protein NT-Pro-B Natriuret Pep Total Protein Albumin
[2019-09-06] MEDS: FINASTERIDE 5 MG TAB PO SCH (13:29)
[2019-09-06] MEDS: DEXAMETHASONE 4 MG TAB PO SCH (13:42)
[2019-09-06] MEDS: SERTRALINE 50 MG TAB PO SCH (13:43)
--- NOTE | 2019-09-06 14:28 | Progress Note ---
Assessment and Plan Assessment and plan: -COVID 19 test negative x2 --Cardiac arrest /multiple episodes; status post CPR per ACLS protocol, check code sheets. On ventilatory support, cardiology following. --Possible anoxic brain injury; Supportive care, consider neurology consult --Acute hypoxic respiratory failure: Intubated on vent Multifactorial, CHF, COPD exacerbation, Cardiac arrest Continue ventilatory support, wean as tolerated and extubate --Severe cardiogenic shock; on multiple pressors Closely monitor --Acute on chronic systolic CHF, EF 15 to 20% Current Visit: Yes Status: Chronic Continue Lasix input output monitoring,, low-sodium diet Fluid restriction, echocardiogram for LV function ejection fraction. --s/p Sustained VT; Patient was asymptomatic ICD in place, cardiology following --Acute exacerbation of end-stage COPD ; Current Visit: Yes Status: Acute Duo nebs and steroids and IV antibiotics Ventilatory support, pulmonary critical following --Acute kidney injury; secondary to ATN Worsening renal function gentle hydration, nephrology consult --Hyperkalemia; Kayexalate, resolved --Shock liver; transaminases in thousands Due to severe hypotension and cardiac arrest AST 2750, ALT 1466 closely monitor, GI consult if needed. --History of A. fib; continue beta-blockers, amiodarone chronic anticoagulation with Eliquis --Severe cardiomyopathy/ICD Interrogation as needed, cardiology consulted, -- Bilateral pneumonia Current Visit: Yes Status: Acute . Continue IV Rocephin and Zithromax Ventilatory support -- h/o Hypertension Current Visit: Yes Status: Chronic Patient is hypotensive and in shock Requiring pressors, hold antihypertensive medications --Type 2 diabetes mellitus Current Visit: Yes Status: Chronic Accu-Cheks adding scale coverage ADA diet insulin as needed, A1c; 6.2 --Coronary artery disease Current Visit: Yes Status: Chronic Continue current cardiac medications --DVT prophylaxis Current Visit: Yes Status: Acute On Eliquis --Full code: Status Patient is critically ill with multiorgan involvement, multiple events of cardiac arrest Possible anoxic brain injury very poor prognosis, recommend DNR /palliative care/hospice Plan of care reviewed with the patient's nurse, discussed with system architect Dr. Parmar. Consults and recommendations noted The high probability of a clinically significant, sudden or life threatening deterioration of the [cardiac , infectious, metabolic, GI and liver and pulmonary] system(s) required my full and direct attention, intervention and personal management. The aggregate critical care time was [40] minutes. This time is in addition to time spent performing reported procedures but includes the following: [x] Data Review and interpretation [x] Patient assessment and monitoring of vital signs [x] Documentation [x] Medication orders and management I discussed with patient's daughter Ms. Ramirez Multiple times, patient's condition, poor prognosis, test reports CODE STATUS. She requested full CODE STATUS at this point Family still discussing and deciding the goals of treatment and CODE STATUS History Interval history: I have seen and examined the patient this morning in ED awaiting ICU bed assignment Patient patient is critically intubated on vent, hypotensive on multiple pressors Intermittent VT, cardiology pulmonary critical following Patient has multiorgan involvement Orally intubated on ventilatory support Vital signs noted Hospitalist Physical - Constitutional Vitals: Temp Pulse Resp BP Pulse Ox 95.6 F L 98 H 24 80/56 94 09/06/19 12:19 09/06/19 14:20 09/06/19 14:20 09/06/19 14:20 09/06/19 14:20 General appearance: Present: mild distress, well-nourished, other (On ventilatory support) - EENT Eyes: Present: PERRL, EOM intact - Neck Neck: Present: supple, other (ET tube and Dobbhoff in place) - Respiratory Respiratory effort: normal Respiratory: bilateral: diminished, rales, rhonchi, negative: wheezing - Cardiovascular Rhythm: regular Heart Sounds: Present: S1 & S2 - Extremities Extremities: no ischemia Extremity abnormal: edema - Abdominal General gastrointestinal: soft, non-tender, non-distended, normal bowel sounds - Integumentary Integumentary: Present: clear, warm - Psychiatric Psychiatric: other (Intubated on vent) - Neurologic Neurologic: other (Intubated on vent) HEART Score - HEART Score Troponin: Troponin T < 0.010 ng/mL (0.00-0.029) 09/02/19 07:23 Results - Labs CBC & Chem 7: 09/06/19 04:00 09/06/19 04:00 Labs: Laboratory Last Values WBC 14.7 K/mm3 (4.5-11.0) H 09/06/19 04:00 RBC 4.72 M/mm3 (3.65-5.03) 09/06/19 04:00 Hgb 12.2 gm/dl (11.8-15.2) 09/06/19 04:00 Hct 39.2 % (35.5-45.6) 09/06/19 04:00 MCV 83 fl (84-94) L 09/06/19 04:00 MCH 26 pg (28-32) L 09/06/19 04:00 MCHC 31 % (32-34) L 09/06/19 04:00 RDW 18.7 % (13.2-15.2) H 09/06/19 04:00 Plt Count 168 K/mm3 (140-440) 09/06/19 04:00 Lymph % (Auto) 8.3 % (13.4-35.0) L 09/03/19 04:25 Patrick % (Auto) 2.5 % (0.0-7.3) 09/03/19 04:25 Eos % (Auto) 0.0 % (0.0-4.3) 09/03/19 04:25 Baso % (Auto) 0.1 % (0.0-1.8) 09/03/19 04:25 Lymph # 0.4 K/mm3 (1.2-5.4) L 09/03/19 04:25 Patrick # 0.1 K/mm3 (0.0-0.8) 09/03/19 04:25 Eos # 0.0 K/mm3 (0.0-0.4) 09/03/19 04:25 Baso # 0.0 K/mm3 (0.0-0.1) 09/03/19 04:25 Add Manual Diff Complete 09/06/19 04:00 Total Counted 100 09/06/19 04:00 Seg Neutrophils % Silo Painter 09/06/19 04:00 Seg Neuts % (Manual) 91.0 % (40.0-70.0) H 09/06/19 04:00 Band Neutrophils % 0 % 09/06/19 04:00 Lymphocytes % (Manual) 3.0 % (13.4-35.0) L 09/06/19 04:00 Reactive Lymphs % (Man) 0 % 09/06/19 04:00 Monocytes % (Manual) 6.0 % (0.0-7.3) 09/06/19 04:00 Eosinophils % (Manual) 0 % (0.0-4.3) 09/06/19 04:00 Basophils % (Manual) 0 % (0.0-1.8) 09/06/19 04:00 Metamyelocytes % 0 % 09/06/19 04:00 Myelocytes % 0 % 09/06/19 04:00 Promyelocytes % 0 % 09/06/19 04:00 Blast Cells % 0 % 09/06/19 04:00 Nucleated RBC % Not Reportable 09/06/19 04:00 Seg Neutrophils # 4.4 K/mm3 (1.8-7.7) 09/03/19 04:25 Seg Neutrophils # Man 13.4 K/mm3 (1.8-7.7) H 09/06/19 04:00 Band Neutrophils # 0.0 K/mm3 09/06/19 04:00 Lymphocytes # (Manual) 0.4 K/mm3 (1.2-5.4) L 09/06/19 04:00 Abs React Lymphs (Man) 0.0 K/mm3 09/06/19 04:00 Monocytes # (Manual) 0.9 K/mm3 (0.0-0.8) H 09/06/19 04:00 Eosinophils # (Manual) 0.0 K/mm3 (0.0-0.4) 09/06/19 04:00 Basophils # (Manual) 0.0 K/mm3 (0.0-0.1) 09/06/19 04:00 Metamyelocytes # 0.0 K/mm3 09/06/19 04:00 Myelocytes # 0.0 K/mm3 09/06/19 04:00 Promyelocytes # 0.0 K/mm3 09/06/19 04:00 Blast Cells # 0.0 K/mm3 09/06/19 04:00 WBC Morphology Not Reportable 09/06/19 04:00 Hypersegmented Neuts Not Reportable 09/06/19 04:00 Hyposegmented Neuts Not Reportable 09/06/19 04:00 Hypogranular Neuts Not Reportable 09/06/19 04:00 Smudge Cells Not Reportable 09/06/19 04:00 Toxic Granulation Not Reportable 09/06/19 04:00 Toxic Vacuolation Not Reportable 09/06/19 04:00 Dohle Bodies Not Reportable 09/06/19 04:00 Pelger-Huet Anomaly Not Reportable 09/06/19 04:00 Shirley Rods Not Reportable 09/06/19 04:00 Platelet Estimate Consistent w auto 09/06/19 04:00 Clumped Platelets Not Reportable 09/06/19 04:00 Plt Clumps, EDTA Not Reportable 09/06/19 04:00 Large Platelets Not Reportable 09/06/19 04:00 Giant Platelets Not Reportable 09/06/19 04:00 Platelet Satelliting Not Reportable 09/06/19 04:00 Plt Morphology Comment Not Reportable 09/06/19 04:00 RBC Morphology Not Reportable 09/06/19 04:00 Dimorphic RBCs Not Reportable 09/06/19 04:00 Polychromasia Few 09/06/19 04:00 Hypochromasia Not Reportable 09/06/19 04:00 Poikilocytosis 2+ 09/06/19 04:00 Anisocytosis Not Reportable 09/06/19 04:00 Microcytosis Not Reportable 09/06/19 04:00 Macrocytosis Not Reportable 09/06/19 04:00 Spherocytes Rare 09/06/19 04:00 Pappenheimer Bodies Not Reportable 09/06/19 04:00 Sickle Cells Not Reportable 09/06/19 04:00 Target Cells 1+ 09/06/19 04:00 Tear Drop Cells Not Reportable 09/06/19 04:00 Ovalocytes 2+ 09/06/19 04:00 Helmet Cells Not Reportable 09/06/19 04:00 Oneill-Tatamy Bodies Not Reportable 09/06/19 04:00 Dunnegan Rings Not Reportable 09/06/19 04:00 [place] Cells 1+ 09/06/19 04:00 Bite Cells Not Reportable 09/06/19 04:00 Crenated Cell Not Reportable 09/06/19 04:00 Elliptocytes 2+ 09/06/19 04:00 Acanthocytes (Spur) Not Reportable 09/06/19 04:00 Rouleaux Not Reportable 09/06/19 04:00 Hemoglobin C Crystals Not Reportable 09/06/19 04:00 Schistocytes Few 09/06/19 04:00 Malaria parasites Not Reportable 09/06/19 04:00 Tera Bodies Not Reportable 09/06/19 04:00 Hem Pathologist Commnt No 09/06/19 04:00 PT 23.0 Sec. (12.2-14.9) H 09/02/19 07:23 INR 2.10 (0.87-1.13) H 09/02/19 07:23 APTT 33.0 Sec. (24.2-36.6) 09/02/19 07:23 D-Dimer 689.74 ng/mlDDU (0-234) H 09/02/19 Unknown ABG pH 7.306 pH Units (7.350-7.450) L 09/06/19 04:36 ABG pCO2 46.7 mm Hg 09/06/19 04:36 ABG pO2 87.7 mm Hg (80.0-90.0) 09/06/19 04:36 ABG HCO3 22.8 mmol/L (20.0-26.0) 09/06/19 04:36 ABG O2 Saturation 97.0 % (95.0-99.0) 09/06/19 04:36 ABG O2 Content 17.1 (0.0-44) 09/06/19 04:36 ABG Base Excess -3.7 mmol/L (-2.0-3.0) L 09/06/19 04:36 ABG Hemoglobin 12.8 gm/dl (14.0-18.0) L 09/06/19 04:36 ABG Carboxyhemoglobin 1.9 % (0.0-5.0) 09/06/19 04:36 ABG Methemoglobin 0.6 % (0.0-1.5) 09/06/19 04:36 Oxyhemoglobin 94.6 % (95.0-99.0) L 09/06/19 04:36 FiO2 90 % 09/06/19 04:36 Sodium 144 mmol/L (137-145) 09/06/19 04:00 Potassium 4.6 mmol/L (3.6-5.0) 09/06/19 04:00 Chloride 105.1 mmol/L (98-107) 09/06/19 04:00 Carbon Dioxide 25 mmol/L (22-30) 09/06/19 04:00 Anion Gap 19 mmol/L 09/06/19 04:00 BUN 74 mg/dL (9-20) H 09/06/19 04:00 Creatinine 3.7 mg/dL (0.8-1.5) H 09/06/19 04:00 Estimated GFR 20 ml/min 09/06/19 04:00 BUN/Creatinine Ratio 20 % 09/06/19 04:00 Glucose 153 mg/dL (75-100) H 09/06/19 04:00 POC Glucose 144 (70-105) H 09/06/19 10:58 Hemoglobin A1c 6.2 % (4-6) H 09/03/19 04:25 Lactic Acid 1.90 mmol/L (0.7-2.0) 09/02/19 09:33 Calcium 7.6 mg/dL (8.4-10.2) L 09/06/19 04:00 Phosphorus 5.80 mg/dL (2.5-4.5) H 09/06/19 04:00 Magnesium 2.20 mg/dL (1.7-2.3) 09/06/19 04:00 Ferritin 252.7 ng/mL (13.0-400.0) 09/02/19 09:33 Total Bilirubin 1.70 mg/dL (0.1-1.2) H 09/06/19 04:00 Direct Bilirubin 0.9 mg/dL (0-0.2) H 09/02/19 09:33 Indirect Bilirubin 2.1 mg/dL 09/02/19 09:33 AST 1929 units/L (5-40) H 09/06/19 04:00 ALT 1665 units/L (7-56) H 09/06/19 04:00 Alkaline Phosphatase 135 units/L (35-129) H 09/06/19 04:00 Lactate Dehydrogenase 252 units/L (91-180) H 09/02/19 09:33 Troponin T < 0.010 ng/mL (0.00-0.029) 09/02/19 07:23 C-Reactive Protein 3.80 mg/dL (0.00-1.30) H 09/02/19 09:33 NT-Pro-B Natriuret Pep 28487 pg/mL (0-900) H 09/02/19 07:23 Total Protein 6.0 g/dL (6.3-8.2) L 09/06/19 04:00 Albumin 2.1 g/dL (3.9-5) L 09/06/19 04:00 Albumin/Globulin Ratio 0.5 % 09/06/19 04:00 Procalcitonin < 0.05 ng/mL (<0.15) 09/02/19 09:33 TSH 2.670 mlU/mL (0.270-4.200) 09/04/19 11:14 Free T4 1.08 ng/dL (0.76-1.46) 09/04/19 11:14 Urine Opiates Screen Presumptive negative 09/06/19 03:20 Urine Methadone Screen Presumptive negative 09/06/19 03:20 Ur Barbiturates Screen Presumptive negative 09/06/19 03:20 Ur Phencyclidine Scrn Presumptive negative 09/06/19 03:20 Ur Amphetamines Screen Presumptive negative 09/06/19 03:20 U Benzodiazepines Scrn Presumptive negative 09/06/19 03:20 Urine Cocaine Screen Presumptive negative 09/06/19 03:20 U Marijuana (THC) Screen Presumptive negative 09/06/19 03:20 Drugs of Abuse Note Disclamer 09/06/19 03:20 Coronavirus (PCR) Negative (Negative) 09/06/19 Unknown Microbiology: Microbiology 09/05/19 Unknown Tracheal Aspirate Sputum Culture - Preliminary 09/02/19 Unknown Peripheral/Venous Blood Culture - Preliminary NO GROWTH AFTER 4 DAYS 09/02/19 Unknown Peripheral/Venous Blood Culture - Preliminary NO GROWTH AFTER 4 DAYS - Diagnostic Impressions Diagnostic Impressions: Echocardiogram 09/03/19 00:18 Transthoracic Echocardiogram Indication: Dyspnea BP: 102/57 HR: 98 Conclusions *Severe, 4-chamber dilated cardiomyopathy. *Global left ventricular systolic function is severely decreased. *The estimated ejection fraction is Less Than 15-20%. *Mild concentric left ventricular hypertrophy is observed. *There is mild aortic regurgitation. *There is mild to moderate mitral regurgitation. *There is at least moderate tricuspid regurgitation. *There is moderately-severe pulmonary hypertension. *The right ventricular systolic pressure is calculated at 61 mmHg. *A pacemaker wire is visualized in the right jeart chambers. Findings Left Ventricle: The left ventricular chamber size is severely dilated. Mild concentric left ventricular hypertrophy is observed. Global left ventricular systolic function is severely decreased. The estimated ejection fraction is 15-20%. Left Atrium: The left atrium is severely dilated. Right Ventricle: The right ventricle is moderate to severely dilated. The right ventricular global systolic function is severely reduced. A pacemaker wire is visualized in the right ventricle. Right Atrium: The right atrium is moderately dilated. A pacemaker wire is visualized in the right atrium. Aortic Valve: The aortic valve is trileaflet. The aortic valve leaflets are mildly thickened. There is mild aortic regurgitation. There is no evidence of aortic stenosis. The mean gradient of the aortic valve is 1.87 mmHg. Mitral Valve: The mitral valve leaflets are mildly thickened. There is mild to moderate mitral regurgitation. There is no evidence of mitral stenosis. Tricuspid Valve: There is moderate tricuspid regurgitation. The right ventricular systolic pressure is calculated at 61 mmHg. There is evidence of severe pulmonary hypertension. Pulmonic Valve: There is mild pulmonic regurgitation. Pericardium: There is no pericardial effusion. Aorta: There is no dilatation of the ascending aorta. There is no dilatation of the aortic root. Venous: The inferior vena cava is dilated. Measurements Chambers 2D Name Value Normal Range IVSd (2D) 0.83 cm (0.6 - 1.1) LVPWd (2D) 0.89 cm (0.6 - 1.1) LVIDd (2D) 6.97 cm (3.7 - 5.6) LVIDs (2D) 6.29 cm (2 - 3.8) LV FS (2D) 9.75 % - EF Teichholz (2D) 20.75 % - Ao root diameter (2D) 3.18 cm (2 - 3.7) Volumes/Mass Name Value Normal Range LA ESV SP 4CH (A/L) 102.95 ml - LA ESV SP 2CH (A/L) 148.69 ml - LA ESV BP (A/L) 128.54 ml - LA ESV BP (A/L) index 69.86 ml/m2 - LA ESV SP 4CH (MOD) 97.53 ml - LA ESV SP 2CH (MOD) 134.72 ml - LA ESV BP (MOD) 118.72 ml - LA ESV BP (MOD) index 64.52 ml/m2 - LV EDV SP 4CH (MOD) 265.95 ml - LV ESV SP 4CH (MOD) 198.9 ml - EF SP 4CH (MOD) 25.21 % - LV EDV SP 2CH (MOD) 240.8 ml - LV ESV SP 2CH (MOD) 201.36 ml - EF SP 2CH (MOD) 16.38 % - LV EDV BP 254.43 ml - LV ESV BP 204.99 ml - BP EF (MOD) 19.43 % - Diastolic/Systolic Function Name Value Normal Range MV E-wave Vmax 0.86 m/sec - MV deceleration time 172.86 msec - MV A-wave Vmax 0.44 m/sec - MV E:A ratio 1.94 ratio - Aortic Valve Name Value Normal Range AV Vmax 0.87 m/sec - AV VTI 17.36 cm - AV peak gradient 3.03 mmHg - AV mean gradient 1.87 mmHg - LVOT diameter 2.15 cm - LVOT Vmax 0.79 m/sec - LVOT VTI 10.29 cm - LVOT peak gradient 2.53 mmHg - LVOT mean gradient 1.07 mmHg - SV LVOT 37.26 ml - CHARLES (continuity Vmax) 3.31 cm2 - CHARLES (continuity VTI) 2.15 cm2 - AR PHT 930.2 msec - AR peak gradient 33.96 mmHg - Ascending Ao 3.39 cm - Mitral Valve Name Value Normal Range MV Vmax 0.95 m/sec - MV VTI 20.87 cm - MV peak gradient 3.65 mmHg - MV mean gradient 1.09 mmHg - MV PHT 58.55 msec - MVA (PHT) 3.76 cm2 - MVA (continuity VTI) 1.79 cm2 - Tricuspid Valve Name Value Normal Range TR Vmax 3.65 m/sec - TR peak gradient 53 mmHg - RAP 8 mmHg - RVSP 61 mmHg - IVC diameter 2.47 cm (1.2 - 2.3) Pulmonic Valve/Qp:Qs Name Value Normal Range PV Vmax 0.77 m/sec - PV VTI 15.61 cm - PV peak gradient 2.38 mmHg - PV mean gradient 1.17 mmHg - CO end-diastolic Vmax 1.4 m/sec - RVOT Vmax 0.56 m/sec - RVOT VTI 9.24 cm - RVOT peak gradient 1.27 mmHg - Estevez/IV: IV Catheter Type [Right Hand] INT / Saline Lock IV Catheter Type [Right Peripheral IV Forearm] IV Catheter Type [Left Peripheral IV Antecubital] Active Medications - Current Medications Current Medications: Generic Name Dose Route Start Last Admin Trade Name Freq PRN Reason Stop Dose Admin Acetaminophen 650 mg 09/03/19 00:06 Tylenol PO Q4H PRN Pain MILD(1-3)/Fever >100.5/BLANKENSHIP Amiodarone HCl 200 mg 09/05/19 10:00 09/06/19 13:28 Cordarone PO Not Given BID BANDAR Apixaban 5 mg 09/04/19 10:00 09/06/19 10:57 Eliquis PO 5 mg DAILY BANDAR Administration Protocol Famotidine 20 mg 09/06/19 11:00 09/06/19 10:58 Pepcid IV 20 mg DAILY BANDAR Administration Finasteride 5 mg 09/04/19 10:00 09/06/19 13:29 Proscar PO Not Given DAILY BANDAR Furosemide 40 mg 09/03/19 06:00 09/06/19 06:44 Lasix IV 40 mg 0600,1800 BANDAR Administration Hydrocortisone Sodium Succinate 100 mg 09/06/19 14:00 Solu-Cortef IV Q8HR BANDAR Ceftriaxone Sodium 2 gm in 100 mls @ 200 mls/hr 09/03/19 10:00 09/06/19 10:58 Rocephin/Ns 2 Gm/100 Ml IV 09/07/19 10:29 200 mls/hr Q24HR BANDAR Administration Protocol Norepinephrine 8 mg/ Sodium 250 mls @ 3.75 mls/hr 09/04/19 23:00 09/06/19 13:30 Chloride IV 28 mcg/min TITR BANDAR 52.5 mls/hr Administration Protocol 2 MCG/MIN Epinephrine 16 mg/ Sodium 250 mls @ 1.875 mls/hr 09/04/19 23:45 09/06/19 14:15 Chloride IV 8 mcg/min TITR BANDAR 7.5 mls/hr Titration Protocol 2 MCG/MIN Dopamine HCl/Dextrose 800 mg in 250 mls @ 2.739 mls/hr 09/05/19 01:00 09/06/19 10:24 Intropin Drip 800 Mg/D5w 250 Ml IV 2 mcg/kg/min TITR BANDAR 2.739 mls/hr Titration Protocol 2 MCG/KG/MIN Sodium Bicarbonate 150 meq/ 1,150 mls @ 200 mls/hr 09/06/19 11:00 09/06/19 12:35 Sodium Chloride IV 200 mls/hr DIRECT BANDAR Administration Insulin Human Lispro 0 unit 09/03/19 08:00 09/06/19 13:30 Humalog SUB-Q Not Given ACHS BANDAR Protocol Ondansetron HCl 4 mg 09/03/19 00:06 09/04/19 13:05 Zofran IV 4 mg Q8H PRN Administration Nausea And Vomiting Sodium Chloride 10 ml 09/03/19 10:00 09/06/19 12:00 Sodium Chloride Flush Syringe 10 Ml IV 10 ml BID BANDAR Administration Sodium Chloride 10 ml 09/03/19 00:06 Sodium Chloride Flush Syringe 10 Ml IV PRN PRN LINE FLUSH
[2019-09-06] MEDS: HYDROCORTISONE SOD SUCC 100 MG/2 ML VIAL IV SCH ×2 (16:30→21:09)
[2019-09-06] MEDS ORDERED: HYDROCORTISONE SOD SUCC 100 MG/2 ML VIAL ONE (16:33)
[2019-09-06] MEDS: DOPamine/D5W 800 MG/250 ML 800 MG/250 ML BAG IV SCH (21:07)
[2019-09-06] MEDS: PHENYLEPHRINE 100 MG in SODIUM CHLORIDE 0.9% 90 ML IV SCH (23:30)
[2019-09-07] MEDS: SODIUM BICARBONATE 150 MEQ in SODIUM CHLORIDE 0.45% 1000 ML 1,000 ML IV SCH ×2 (00:51→07:05)
[2019-09-07] MEDS: NORepinephrine 8 MG in SODIUM CHLORIDE 0.9% 250ML 242 ML IV SCH ×4 (04:38→18:15)
[2019-09-07 04:39] LABS: ABG Base Excess 2.5 mmol/L (-2.0-3.0); ABG HCO3 28.6 mmol/L (20.0-26.0); ABG Methemoglobin 0.6 % (0.0-1.5); ABG Oxygen Saturation 97.8 % (95.0-99.0); ABG PH 7.376 pH Units (7.350-7.450)
[2019-09-07] MEDS: EPINEPHrine 1 MG/1 ML 16 MG in SODIUM CHLORIDE 0.9% 250ML 234 ML IV SCH (04:39)
[2019-09-07 04:59] LABS: Hematocrit 46.2 % (35.5-45.6); Hemoglobin 14.5 gm/dl (11.8-15.2); Mean Corpuscular HGB Conc 31 % (32-34); Mean Corpuscular Volume 82 fl (84-94); Platelet Count 200 K/mm3 (140-440); Red Blood Count 5.63 M/mm3 (3.65-5.03); Red Cell Distribution Width 19.1 % (13.2-15.2)
[2019-09-07 05:16] LABS: Albumin 1.9 g/dL (3.9-5); Calcium 8.3 mg/dL (8.4-10.2)
[2019-09-07 06:07] LABS: Basophils % (Manual) 0 % (0.0-1.8); Eosinophils % (Manual) 0 % (0.0-4.3); Total Cells Counted 100
[2019-09-07] MEDS: FUROSEMIDE 40 MG/4 ML INJ IV SCH (06:07)
[2019-09-07] MEDS: HYDROCORTISONE SOD SUCC 100 MG/2 ML VIAL IV SCH ×3 (06:07→21:26)
[2019-09-07 06:08] LABS: Poikilocytosis 2+; Schistocytes Few
[2019-09-07 06:09] LABS: Burr Cells 1+; Ovalocytes 2+; Platelet Estimate Consistent w Auto; Target Cells 1+
--- NOTE | 2019-09-07 08:26 | XRay Report ---
CHEST 1 VIEW INDICATION: f/u intubated/acute respiratory failure. COMPARISON: 09/05/2019 FINDINGS: Support devices: The distal tip of the endotracheal tube terminates at the level of the clavicles haylie roximately 6.8 cm above the naldo. Single lead pacemaker device terminates in the right ventricle. Heart: Stable mild cardiomegaly. Lungs/Pleura: The lungs are generally clear with no evidence for pneumonia, pleural fluid or pneumoth orax. Additional findings: None. IMPRESSION: Endotracheal tube as described. Cardiomegaly. Signer Name: Matt Kerr Jr, MD Signed: 09/07/2019 8:22 AM Workstation Name: [id number]
[2019-09-07] MEDS: INSULIN LISPRO 100 UNIT/ML SUB-Q SCH ×3 (08:37→18:13)
[2019-09-07] MEDS: cefTRIAXone/NS 2 GM/100 ML 2 GM/100 ML BAG IV SCH (09:14)
[2019-09-07] MEDS: FAMOTIDINE 20 MG/2 ML INJ IV SCH (09:14)
[2019-09-07] MEDS: AMIODARONE 200 MG TAB PO SCH ×2 (09:14→21:26)
[2019-09-07] MEDS: FINASTERIDE 5 MG TAB PO SCH (09:15)
--- NOTE | 2019-09-07 10:22 | Progress Note ---
Assessment and Plan Acute on chronic CHF Dilated cardiomyopathy, LVEF 10-15% - patient follows with Dr Prince Livingston at [place] Cardiac arrest Patient found pulseless and unresponsive while in the ED Multiple AICD shocks earlier for sustained VT On po amiodarone Cardiogenic shock On multiple pressors Acute renal failure [place] AICD Paroxysmal atrial fibrillation End-stage COPD History of cocaine abuse UDS negative this admission Supportive cardiac care Subjective Date of service: 09/07/19 Principal diagnosis: Cardiac arrest Interval history: Patient remains unresponsive on the vent and on multiple pressors for support. Objective Vital Signs Temp Pulse Pulse Resp BP Pulse Ox 09/07/19 10:00 130 H 24 108/78 96 09/07/19 09:45 130 H 24 106/80 97 09/07/19 09:35 120 H 103/76 97 09/07/19 09:30 131 H 24 103/76 97 09/07/19 09:15 127 H 24 97/70 96 09/07/19 09:00 129 H 24 94/63 97 09/07/19 08:45 113 H 24 100/65 96 09/07/19 08:30 112 H 24 90/67 95 09/07/19 08:15 116 H 24 99/70 96 09/07/19 08:01 130 H 25 H 101/75 95 09/07/19 08:00 99.2 F 09/07/19 07:45 132 H 24 101/75 96 09/07/19 07:30 127 H 24 93/60 96 09/07/19 07:15 131 H 24 103/67 96 09/07/19 07:00 133 H 24 98/69 96 09/07/19 06:45 126 H 24 102/72 95 09/07/19 06:30 116 H 24 99/71 96 09/07/19 06:15 116 H 24 102/76 96 09/07/19 06:00 125 H 24 102/76 96 09/07/19 05:45 106 H 24 109/67 96 09/07/19 05:30 112 H 24 93/70 97 09/07/19 05:15 113 H 24 95/65 98 09/07/19 05:00 111 H 24 85/59 96 09/07/19 04:45 135 H 24 89/61 98 09/07/19 04:30 133 H 24 105/66 97 09/07/19 04:15 130 H 24 95/58 97 09/07/19 04:01 112 H 24 95/48 98 09/07/19 04:00 101 H 24 95 09/07/19 03:45 111 H 24 90/60 98 09/07/19 03:31 98.9 F 09/07/19 03:30 111 H 24 82/61 97 09/07/19 03:15 112 H 24 87/56 97 09/07/19 03:00 114 H 24 92/68 97 09/07/19 02:45 109 H 24 87/52 97 09/07/19 02:30 111 H 24 94/55 97 09/07/19 02:15 111 H 24 93/57 97 09/07/19 02:00 110 H 25 H 86/65 97 09/07/19 01:45 111 H 8 L 86/63 95 09/07/19 01:30 110 H 7 L 95/56 95 09/07/19 01:15 107 H 13 88/55 95 09/07/19 01:00 123 H 8 L 90/61 95 09/07/19 00:45 115 H 10 L 97/56 95 09/07/19 00:30 122 H 11 L 86/65 95 09/07/19 00:15 123 H 17 91/67 96 09/07/19 00:01 121 H 12 81/59 95 09/07/19 00:00 120 H 120 H 13 81/59 96 09/06/19 23:58 98.5 F 09/06/19 23:51 107 H 81/59 95 09/06/19 23:45 111 H 14 89/68 95 09/06/19 23:31 107 H 16 89/68 96 09/06/19 23:15 106 H 25 H 76/42 95 09/06/19 23:00 107 H 24 75/49 95 09/06/19 22:45 109 H 25 H 84/33 95 09/06/19 22:30 113 H 24 122/71 94 09/06/19 22:15 127 H 25 H 110/86 96 09/06/19 22:00 115 H 24 106/79 95 09/06/19 21:45 110 H 24 72/53 97 09/06/19 21:30 105 H 24 72/53 95 07/19/20 21:15 102 H 24 78/53 95 19/20 21:01 101 H 22 80/54 96 19/20 20:45 101 H 24 66/47 96 1920 20:30 101 H 24 77/56 96 20 20:25 99 H 71/47 96 09/05/20 20:15 102 H 23 79/54 96 19/20 20:01 100 H 24 70/37 96 20 20:00 101 H 24 95 20 19:49 98.3 F 0720 19:45 100 H 20 83/59 95 20 19:30 101 H 24 92/64 96 20 19:15 103 H 24 84/62 96 20 19:00 99 H 24 95/62 96 20 18:45 101 H 24 86/59 95 20 18:30 97 H 24 96 20 18:29 98 H 24 95 20 17:15 100 H 24 96 20 16:30 94 H 24 68/42 95 20 16:28 93 H 60/37 95 09/05/20 16:15 95 H 24 84/58 94 09/05/20 16:00 98.5 F 102 H 24 84/58 94 09/05/20 15:45 98 H 24 79/54 94 09/05/20 15:30 98 H 24 77/58 94 19/20 15:15 100 H 24 84/49 94 20 15:00 97 H 24 84/54 94 20 14:45 97 H 24 80/53 94 19/20 14:30 98 H 24 75/54 94 19/20 14:20 98 H 24 80/56 94 19/20 14:10 98 H 24 78/53 94 19/20 14:00 98 H 24 84/58 94 19/20 13:50 96 H 24 74/54 93 19/20 13:40 94 H 24 70/50 92 /19/20 13:30 96 H 24 79/53 93 /19/20 13:21 95 H 24 75/41 92 09/05/20 13:11 93 H 24 71/42 92 07/19/20 13:00 97 H 24 82/57 93 09/06/19 12:51 97 H 24 82/51 92 09/06/19 12:41 99 H 24 84/58 92 09/06/19 12:21 103 H 24 90/75 93 09/06/19 12:19 95.6 F L 09/06/19 12:00 109 H 24 90/68 93 09/06/19 11:51 105 H 24 85/54 94 09/06/19 11:45 91 H 24 85/54 94 09/06/19 11:41 90 24 83/56 94 09/06/19 11:35 90 24 83/56 94 09/06/19 11:30 90 24 83/56 94 09/06/19 11:25 90 24 85/54 94 09/06/19 11:21 89 24 87/59 94 09/06/19 11:15 89 24 87/59 94 09/06/19 11:11 88 24 78/52 94 09/06/19 11:05 88 24 78/52 94 09/06/19 11:00 91 H 24 78/52 94 09/06/19 10:55 88 24 85/54 93 09/06/19 10:51 88 24 85/54 93 09/06/19 10:45 87 24 85/54 93 09/06/19 10:41 86 24 82/54 93 09/06/19 10:35 86 24 82/54 93 09/06/19 10:30 86 24 82/54 94 09/06/19 10:25 85 24 78/56 94 09/06/19 10:21 85 24 78/56 94 - Physical Examination General: Other (intubated on the vent) Cardiac: Positive: Tachycardia - Labs and Meds Cardiac Enzymes 09/07/19 Range/Units 04:34 AST 712 H (5-40) units/L CBC 09/07/19 Range/Units 04:34 WBC 18.3 H (4.5-11.0) K/mm3 RBC 5.63 H (3.65-5.03) M/mm3 Hgb 14.5 (11.8-15.2) gm/dl Hct 46.2 H D (35.5-45.6) % Plt Count 200 (140-440) K/mm3 Comprehensive Metabolic Panel 09/07/19 Range/Units 04:34 Sodium 149 H (137-145) mmol/L Potassium 4.9 (3.6-5.0) mmol/L Chloride 105.2 (98-107) mmol/L Carbon Dioxide 27 (22-30) mmol/L BUN 83 H (9-20) mg/dL Creatinine 4.4 H (0.8-1.5) mg/dL Glucose 174 H (75-100) mg/dL Calcium 8.3 L (8.4-10.2) mg/dL AST 712 H (5-40) units/L ALT 1183 H (7-56) units/L Alkaline Phosphatase 141 H (35-129) units/L Total Protein 5.8 L (6.3-8.2) g/dL Albumin 1.9 L (3.9-5) g/dL
[2019-09-07] MEDS: APIXABAN 5 MG TAB PO SCH (10:32)
--- NOTE | 2019-09-07 11:28 | Progress Note ---
Assessment and Plan 69 y/o male with heart failure now with multiple cardiac arrests, acute respiratory failure, renal failure, shock liver and severe metabolic acidosis with post arrest encephalopathy 1. CV-Cards following. per their note poor prognosis. on amio and following. Currently on 3 pressors to maintain adequate BP's if possible. Unable to d iurese at this time. Asked nursing to start weaning the epi first. 2. Resp-failure secondary to cardiac arrest. Ventilated, not sedated. Very Low PF ratio. CXR is unchanged. RT was able to increase PEEP 10 without compromising BP per report. now down to 60%. Will start to wean PEEP once FiO2 around 40-45%. 3. Renal-Worsening renal failure, non-oliguric now but still worsening metabo lic acidosis. has responded to bicarb drip. Will continue. Follow up renal recs but needs HD. K responded to kayexalete therapy. Renal consulted on yesterday. Not a candidate however given pressor requirement, would crash on HD. CRRT not available here. 4. GI-shock liver with elevated transminases from from hypotension. Suggest checking INR to eval synthetic function. Unable to feel secondary to pressor requirement 5. Needs repeat chemistry, agree with q6 hour checks 6. continue steroids at stress doses 7. neurology consult placed for anoxia, persistent vegetative state 8. Would discontinue all pain meds or any other sedative medications. Given depressed mental state OVerall prognosis is poor. Will attempt to speak with family about medical decisions, but await neurology evaluation first. CCT 31 minutes. Subjective Date of service: 09/07/19 Principal diagnosis: Cardiac arrest Interval history: No acute events. Remains unresponsive. Still on 3 vasopressors and now having runs of vtach on the monitor. Per nursing, pupils are fixed and dilated, no cough and no gag reflex. Patient is not breathing over the vent. Objective Vital Signs - 12hr 09/06/19 09/06/19 09/06/19 23:15 23:31 23:45 Temperature Pulse Rate 106 H 107 H 111 H Pulse Rate [ From Monitor] Respiratory 25 H 16 14 Rate Blood Pressure 76/42 89/68 89/68 O2 Sat by Pulse 95 96 95 Oximetry 09/06/19 09/06/19 09/07/19 23:51 23:58 00:00 Temperature 98.5 F Pulse Rate 107 H 120 H Pulse Rate [ 120 H From Monitor] Respiratory 13 Rate Blood Pressure 81/59 81/59 O2 Sat by Pulse 95 96 Oximetry 09/07/19 09/07/19 09/07/19 00:01 00:15 00:30 Temperature Pulse Rate 121 H 123 H 122 H Pulse Rate [ From Monitor] Respiratory 12 17 11 L Rate Blood Pressure 81/59 91/67 86/65 O2 Sat by Pulse 95 96 95 Oximetry 09/07/19 09/07/19 09/07/19 00:45 01:00 01:15 Temperature Pulse Rate 115 H 123 H 107 H Pulse Rate [ From Monitor] Respiratory 10 L 8 L 13 Rate Blood Pressure 97/56 90/61 88/55 O2 Sat by Pulse 95 95 95 Oximetry 09/07/19 09/07/19 09/07/19 01:30 01:45 02:00 Temperature Pulse Rate 110 H 111 H 110 H Pulse Rate [ From Monitor] Respiratory 7 L 8 L 25 H Rate Blood Pressure 95/56 86/63 86/65 O2 Sat by Pulse 95 95 97 Oximetry 09/07/19 09/07/19 09/07/19 02:15 02:30 02:45 Temperature Pulse Rate 111 H 111 H 109 H Pulse Rate [ From Monitor] Respiratory 24 24 24 Rate Blood Pressure 93/57 94/55 87/52 O2 Sat by Pulse 97 97 97 Oximetry 09/07/19 09/07/19 09/07/19 03:00 03:15 03:30 Temperature Pulse Rate 114 H 112 H 111 H Pulse Rate [ From Monitor] Respiratory 24 24 24 Rate Blood Pressure 92/68 87/56 82/61 O2 Sat by Pulse 97 97 97 Oximetry 09/07/19 09/07/19 09/07/19 03:31 03:45 04:00 Temperature 98.9 F Pulse Rate 111 H Pulse Rate [ 101 H From Monitor] Respiratory 24 24 Rate Blood Pressure 90/60 O2 Sat by Pulse 98 95 Oximetry 09/07/19 09/07/19 09/07/19 04:01 04:15 04:30 Temperature Pulse Rate 112 H 130 H 133 H Pulse Rate [ From Monitor] Respiratory 24 24 24 Rate Blood Pressure 95/48 95/58 105/66 O2 Sat by Pulse 98 97 97 Oximetry 09/07/19 09/07/19 09/07/19 04:45 05:00 05:15 Temperature Pulse Rate 135 H 111 H 113 H Pulse Rate [ From Monitor] Respiratory 24 24 24 Rate Blood Pressure 89/61 85/59 95/65 O2 Sat by Pulse 98 96 98 Oximetry /20/20 07/20/20 20/20 05:30 05:45 06:00 Temperature Pulse Rate 112 H 106 H 125 H Pulse Rate [ From Monitor] Respiratory 24 24 24 Rate Blood Pressure 93/70 109/67 102/76 O2 Sat by Pulse 97 96 96 Oximetry 20/20 07/20/20 20/20 06:15 06:30 06:45 Temperature Pulse Rate 116 H 116 H 126 H Pulse Rate [ From Monitor] Respiratory 24 24 24 Rate Blood Pressure 102/76 99/71 102/72 O2 Sat by Pulse 96 96 95 Oximetry 20/20 07/20/20 072020 07:00 07:15 07:30 Temperature Pulse Rate 133 H 131 H 127 H Pulse Rate [ From Monitor] Respiratory 24 24 24 Rate Blood Pressure 98/69 103/67 93/60 O2 Sat by Pulse 96 96 96 Oximetry 20/20 07/20/20 072020 07:45 08:00 08:01 Temperature 99.2 F Pulse Rate 132 H 130 H Pulse Rate [ 130 H From Monitor] Respiratory 24 25 H 25 H Rate Blood Pressure 101/75 101/75 O2 Sat by Pulse 96 95 95 Oximetry 20/20 /20/20 20/20 08:15 08:30 08:45 Temperature Pulse Rate 116 H 112 H 113 H Pulse Rate [ From Monitor] Respiratory 24 24 24 Rate Blood Pressure 99/70 90/67 100/65 O2 Sat by Pulse 96 95 96 Oximetry 20/20 07/20/20 20/20 09:00 09:15 09:30 Temperature Pulse Rate 129 H 127 H 131 H Pulse Rate [ From Monitor] Respiratory 24 24 24 Rate Blood Pressure 94/63 97/70 103/76 O2 Sat by Pulse 97 96 97 Oximetry 07/20/20 07/20/20 07/20/20 09:35 09:45 10:00 Temperature Pulse Rate 120 H 130 H 130 H Pulse Rate [ From Monitor] Respiratory 24 24 Rate Blood Pressure 103/76 106/80 108/78 O2 Sat by Pulse 97 97 96 Oximetry /20/20 07/20/20 07/20/20 10:15 10:30 10:45 Temperature Pulse Rate 131 H 129 H 128 H Pulse Rate [ From Monitor] Respiratory 23 23 23 Rate Blood Pressure 108/78 107/56 107/56 O2 Sat by Pulse 95 95 95 Oximetry 09/07/19 11:01 Temperature Pulse Rate 131 H Pulse Rate [ From Monitor] Respiratory 23 Rate Blood Pressure 84/60 O2 Sat by Pulse 95 Oximetry CBC and BMP: 09/07/19 04:34 09/07/19 04:34 ABG, PT/INR, D-dimer: ABG ABG pH 7.376 pH Units (7.350-7.450) 09/07/19 03:47 ABG pCO2 50.0 mm Hg 09/07/19 03:47 ABG pO2 107.0 mm Hg (80.0-90.0) H 09/07/19 03:47 ABG O2 Saturation 97.8 % (95.0-99.0) 09/07/19 03:47 PT/INR, D-dimer PT 23.0 Sec. (12.2-14.9) H 09/02/19 07:23 INR 2.10 (0.87-1.13) H 09/02/19 07:23 D-Dimer 689.74 ng/mlDDU (0-234) H 09/02/19 Unknown Abnormal lab findings: Abnormal Labs 09/02/19 09/02/19 09/02/19 05:30 07:23 07:23 WBC RBC Hgb 10.7 L Hct 33.8 L MCV 82 L MCH 26 L MCHC RDW 18.1 H Lymph % (Auto) 9.3 L Lymph # 0.5 L Seg Neutrophils % 83.1 H Seg Neuts % (Manual) Lymphocytes % (Manual) Seg Neutrophils # Man Lymphocytes # (Manual) Monocytes # (Manual) PT INR D-Dimer ABG pH ABG pO2 ABG HCO3 19.2 L ABG O2 Saturation ABG Base Excess -4.4 L ABG Hemoglobin 11.3 L Oxyhemoglobin 94.5 L Sodium Potassium Carbon Dioxide 21 L BUN 25 H Creatinine Glucose 119 H POC Glucose Hemoglobin A1c Calcium Phosphorus Total Bilirubin Direct Bilirubin AST ALT Alkaline Phosphatase Lactate Dehydrogenase C-Reactive Protein NT-Pro-B Natriuret Pep Total Protein Albumin 07/15/20 07/15/20 07/15/20 07:23 07:23 09:33 WBC RBC Hgb Hct MCV MCH MCHC RDW Lymph % (Auto) Lymph # Seg Neutrophils % Seg Neuts % (Manual) Lymphocytes % (Manual) Seg Neutrophils # Man Lymphocytes # (Manual) Monocytes # (Manual) PT 23.0 H INR 2.10 H D-Dimer ABG pH ABG pO2 ABG HCO3 ABG O2 Saturation ABG Base Excess ABG Hemoglobin Oxyhemoglobin Sodium Potassium Carbon Dioxide BUN Creatinine Glucose 123 H POC Glucose Hemoglobin A1c Calcium Phosphorus Total Bilirubin 3.00 H Direct Bilirubin 0.9 H AST 43 H ALT Alkaline Phosphatase Lactate Dehydrogenase 252 H C-Reactive Protein 3.80 H NT-Pro-B Natriuret Pep 18074 H Total Protein Albumin 3.0 L 09/02/19 09/03/19 09/03/19 Unknown 00:47 04:25 WBC RBC Hgb 11.2 L Hct MCV 83 L MCH 26 L MCHC 31 L RDW 17.9 H Lymph % (Auto) 8.3 L Lymph # 0.4 L Seg Neutrophils % 89.1 H Seg Neuts % (Manual) Lymphocytes % (Manual) Seg Neutrophils # Man Lymphocytes # (Manual) Monocytes # (Manual) PT INR D-Dimer 689.74 H ABG pH ABG pO2 ABG HCO3 ABG O2 Saturation ABG Base Excess ABG Hemoglobin Oxyhemoglobin Sodium 135 L Potassium Carbon Dioxide 20 L BUN 27 H Creatinine Glucose 157 H POC Glucose Hemoglobin A1c Calcium Phosphorus Total Bilirubin 1.70 H Direct Bilirubin AST ALT Alkaline Phosphatase Lactate Dehydrogenase C-Reactive Protein NT-Pro-B Natriuret Pep Total Protein Albumin 2.5 L 09/03/19 09/03/19 09/03/19 04:25 09:46 16:15 WBC RBC Hgb Hct MCV MCH MCHC RDW Lymph % (Auto) Lymph # Seg Neutrophils % Seg Neuts % (Manual) Lymphocytes % (Manual) Seg Neutrophils # Man Lymphocytes # (Manual) Monocytes # (Manual) PT INR D-Dimer ABG pH ABG pO2 ABG HCO3 ABG O2 Saturation ABG Base Excess ABG Hemoglobin Oxyhemoglobin Sodium Potassium Carbon Dioxide BUN Creatinine Glucose POC Glucose 125 H 173 H Hemoglobin A1c 6.2 H Calcium Phosphorus Total Bilirubin Direct Bilirubin AST ALT Alkaline Phosphatase Lactate Dehydrogenase C-Reactive Protein NT-Pro-B Natriuret Pep Total Protein Albumin 07/16/20 07/17/20 07/17/20 22:17 03:26 03:26 WBC 11.3 H RBC Hgb 11.3 L Hct MCV 82 L MCH 26 L MCHC RDW 18.4 H Lymph % (Auto) Lymph # Seg Neutrophils % Seg Neuts % (Manual) 90.0 H Lymphocytes % (Manual) 4.0 L Seg Neutrophils # Man 10.2 H Lymphocytes # (Manual) 0.5 L Monocytes # (Manual) PT INR D-Dimer ABG pH ABG pO2 ABG HCO3 ABG O2 Saturation ABG Base Excess ABG Hemoglobin Oxyhemoglobin Sodium Potassium Carbon Dioxide 21 L BUN 38 H Creatinine Glucose 126 H POC Glucose 238 H Hemoglobin A1c Calcium Phosphorus Total Bilirubin Direct Bilirubin AST ALT Alkaline Phosphatase Lactate Dehydrogenase C-Reactive Protein NT-Pro-B Natriuret Pep Total Protein Albumin 09/04/19 09/04/19 09/04/19 11:08 15:42 21:38 WBC RBC Hgb Hct MCV MCH MCHC RDW Lymph % (Auto) Lymph # Seg Neutrophils % Seg Neuts % (Manual) Lymphocytes % (Manual) Seg Neutrophils # Man Lymphocytes # (Manual) Monocytes # (Manual) PT INR D-Dimer ABG pH 7.345 L 6.947 L* 7.030 L* ABG pO2 106.7 H 31.4 L* 91.1 H ABG HCO3 18.2 L 16.9 L 14.3 L ABG O2 Saturation 26.3 L 92.0 L ABG Base Excess -6.7 L -15.8 L -16.3 L ABG Hemoglobin 12.0 L 11.6 L 11.9 L Oxyhemoglobin 25.6 L 89.5 L Sodium Potassium Carbon Dioxide BUN Creatinine Glucose POC Glucose Hemoglobin A1c Calcium Phosphorus Total Bilirubin Direct Bilirubin AST ALT Alkaline Phosphatase Lactate Dehydrogenase C-Reactive Protein NT-Pro-B Natriuret Pep Total Protein Albumin 09/04/19 09/05/19 09/05/19 23:46 00:39 04:02 WBC RBC Hgb Hct MCV MCH MCHC RDW Lymph % (Auto) Lymph # Seg Neutrophils % Seg Neuts % (Manual) Lymphocytes % (Manual) Seg Neutrophils # Man Lymphocytes # (Manual) Monocytes # (Manual) PT INR D-Dimer ABG pH ABG pO2 ABG HCO3 ABG O2 Saturation ABG Base Excess ABG Hemoglobin Oxyhemoglobin Sodium Potassium 5.7 H Carbon Dioxide 19 L BUN 53 H Creatinine 2.6 H D Glucose 109 H POC Glucose < 40 L 111 H Hemoglobin A1c Calcium 8.3 L D Phosphorus Total Bilirubin 2.40 H Direct Bilirubin AST 2750 H ALT 1466 H Alkaline Phosphatase 134 H Lactate Dehydrogenase C-Reactive Protein NT-Pro-B Natriuret Pep Total Protein Albumin 2.7 L 09/05/19 09/05/19 09/05/19 05:45 08:58 18:55 WBC RBC Hgb Hct MCV MCH MCHC RDW Lymph % (Auto) Lymph # Seg Neutrophils % Seg Neuts % (Manual) Lymphocytes % (Manual) Seg Neutrophils # Man Lymphocytes # (Manual) Monocytes # (Manual) PT INR D-Dimer ABG pH 7.154 L* ABG pO2 79.3 L ABG HCO3 ABG O2 Saturation ABG Base Excess -8.3 L ABG Hemoglobin 11.7 L Oxyhemoglobin 92.7 L Sodium Potassium Carbon Dioxide BUN Creatinine Glucose POC Glucose 123 H 181 H Hemoglobin A1c Calcium Phosphorus Total Bilirubin Direct Bilirubin AST ALT Alkaline Phosphatase Lactate Dehydrogenase C-Reactive Protein NT-Pro-B Natriuret Pep Total Protein Albumin 09/06/19 09/06/19 09/06/19 02:18 04:00 04:00 WBC 14.7 H RBC Hgb Hct MCV 83 L MCH 26 L MCHC 31 L RDW 18.7 H Lymph % (Auto) Lymph # Seg Neutrophils % Seg Neuts % (Manual) 91.0 H Lymphocytes % (Manual) 3.0 L Seg Neutrophils # Man 13.4 H Lymphocytes # (Manual) 0.4 L Monocytes # (Manual) 0.9 H PT INR D-Dimer ABG pH ABG pO2 ABG HCO3 ABG O2 Saturation ABG Base Excess ABG Hemoglobin Oxyhemoglobin Sodium Potassium Carbon Dioxide BUN 74 H Creatinine 3.7 H Glucose 153 H POC Glucose 165 H Hemoglobin A1c Calcium 7.6 L Phosphorus 5.80 H Total Bilirubin 1.70 H Direct Bilirubin AST 1929 H ALT 1665 H Alkaline Phosphatase 135 H Lactate Dehydrogenase C-Reactive Protein NT-Pro-B Natriuret Pep Total Protein 6.0 L Albumin 2.1 L 09/06/19 09/06/19 09/06/19 04:36 10:58 16:03 WBC RBC Hgb Hct MCV MCH MCHC RDW Lymph % (Auto) Lymph # Seg Neutrophils % Seg Neuts % (Manual) Lymphocytes % (Manual) Seg Neutrophils # Man Lymphocytes # (Manual) Monocytes # (Manual) PT INR D-Dimer ABG pH 7.306 L ABG pO2 ABG HCO3 ABG O2 Saturation ABG Base Excess -3.7 L ABG Hemoglobin 12.8 L Oxyhemoglobin 94.6 L Sodium Potassium Carbon Dioxide BUN Creatinine Glucose POC Glucose 144 H 109 H Hemoglobin A1c Calcium Phosphorus Total Bilirubin Direct Bilirubin AST ALT Alkaline Phosphatase Lactate Dehydrogenase C-Reactive Protein NT-Pro-B Natriuret Pep Total Protein Albumin 09/07/19 09/07/19 09/07/19 03:47 04:34 04:34 WBC 18.3 H RBC 5.63 H Hgb Hct 46.2 H D MCV 82 L MCH 26 L MCHC 31 L RDW 19.1 H Lymph % (Auto) Lymph # Seg Neutrophils % Seg Neuts % (Manual) 93.0 H Lymphocytes % (Manual) 2.0 L Seg Neutrophils # Man 17.0 H Lymphocytes # (Manual) 0.4 L Monocytes # (Manual) 0.9 H PT INR D-Dimer ABG pH ABG pO2 107.0 H ABG HCO3 28.6 H ABG O2 Saturation ABG Base Excess ABG Hemoglobin Oxyhemoglobin Sodium 149 H Potassium Carbon Dioxide BUN 83 H Creatinine 4.4 H Glucose 174 H POC Glucose Hemoglobin A1c Calcium 8.3 L Phosphorus 6.10 H Total Bilirubin 1.80 H Direct Bilirubin AST 712 H ALT 1183 H Alkaline Phosphatase 141 H Lactate Dehydrogenase C-Reactive Protein NT-Pro-B Natriuret Pep Total Protein 5.8 L Albumin 1.9 L 09/07/19 08:38 WBC RBC Hgb Hct MCV MCH MCHC RDW Lymph % (Auto) Lymph # Seg Neutrophils % Seg Neuts % (Manual) Lymphocytes % (Manual) Seg Neutrophils # Man Lymphocytes # (Manual) Monocytes # (Manual) PT INR D-Dimer ABG pH ABG pO2 ABG HCO3 ABG O2 Saturation ABG Base Excess ABG Hemoglobin Oxyhemoglobin Sodium Potassium Carbon Dioxide BUN Creatinine Glucose POC Glucose 166 H Hemoglobin A1c Calcium Phosphorus Total Bilirubin Direct Bilirubin AST ALT Alkaline Phosphatase Lactate Dehydrogenase C-Reactive Protein NT-Pro-B Natriuret Pep Total Protein Albumin
--- NOTE | 2019-09-07 12:17 | Progress Note ---
Subjective Date of service: 09/07/19 Principal diagnosis: Cardiac arrest Objective - Vital Signs Vital signs: Vital Signs - 12hr 09/07/19 09/07/19 09/07/19 00:30 00:45 01:00 Temperature Pulse Rate 122 H 115 H 123 H Pulse Rate [ From Monitor] Respiratory 11 L 10 L 8 L Rate Blood Pressure 86/65 97/56 90/61 O2 Sat by Pulse 95 95 95 Oximetry 09/07/19 09/07/19 09/07/19 01:15 01:30 01:45 Temperature Pulse Rate 107 H 110 H 111 H Pulse Rate [ From Monitor] Respiratory 13 7 L 8 L Rate Blood Pressure 88/55 95/56 86/63 O2 Sat by Pulse 95 95 95 Oximetry 09/07/19 09/07/19 09/07/19 02:00 02:15 02:30 Temperature Pulse Rate 110 H 111 H 111 H Pulse Rate [ From Monitor] Respiratory 25 H 24 24 Rate Blood Pressure 86/65 93/57 94/55 O2 Sat by Pulse 97 97 97 Oximetry 09/07/19 09/07/19 09/07/19 02:45 03:00 03:15 Temperature Pulse Rate 109 H 114 H 112 H Pulse Rate [ From Monitor] Respiratory 24 24 24 Rate Blood Pressure 87/52 92/68 87/56 O2 Sat by Pulse 97 97 97 Oximetry 09/07/19 09/07/19 09/07/19 03:30 03:31 03:45 Temperature 98.9 F Pulse Rate 111 H 111 H Pulse Rate [ From Monitor] Respiratory 24 24 Rate Blood Pressure 82/61 90/60 O2 Sat by Pulse 97 98 Oximetry 09/07/19 09/07/19 09/07/19 04:00 04:01 04:15 Temperature Pulse Rate 112 H 130 H Pulse Rate [ 101 H From Monitor] Respiratory 24 24 24 Rate Blood Pressure 95/48 95/58 O2 Sat by Pulse 95 98 97 Oximetry 09/07/19 09/07/19 09/07/19 04:30 04:45 05:00 Temperature Pulse Rate 133 H 135 H 111 H Pulse Rate [ From Monitor] Respiratory 24 24 24 Rate Blood Pressure 105/66 89/61 85/59 O2 Sat by Pulse 97 98 96 Oximetry 09/07/19 09/07/19 09/07/19 05:15 05:30 05:45 Temperature Pulse Rate 113 H 112 H 106 H Pulse Rate [ From Monitor] Respiratory 24 24 24 Rate Blood Pressure 95/65 93/70 109/67 O2 Sat by Pulse 98 97 96 Oximetry 20/20 07/20/20 /2020 06:00 06:15 06:30 Temperature Pulse Rate 125 H 116 H 116 H Pulse Rate [ From Monitor] Respiratory 24 24 24 Rate Blood Pressure 102/76 102/76 99/71 O2 Sat by Pulse 96 96 96 Oximetry 20/20 /20/20 2020 06:45 07:00 07:15 Temperature Pulse Rate 126 H 133 H 131 H Pulse Rate [ From Monitor] Respiratory 24 24 24 Rate Blood Pressure 102/72 98/69 103/67 O2 Sat by Pulse 95 96 96 Oximetry 20/20 07/20/20 2020 07:30 07:45 08:00 Temperature 99.2 F Pulse Rate 127 H 132 H Pulse Rate [ 130 H From Monitor] Respiratory 24 24 25 H Rate Blood Pressure 93/60 101/75 O2 Sat by Pulse 96 96 95 Oximetry 20/20 07/20/20 2020 08:01 08:15 08:30 Temperature Pulse Rate 130 H 116 H 112 H Pulse Rate [ From Monitor] Respiratory 25 H 24 24 Rate Blood Pressure 101/75 99/70 90/67 O2 Sat by Pulse 95 96 95 Oximetry 20/20 /20/20 072020 08:45 09:00 09:15 Temperature Pulse Rate 113 H 129 H 127 H Pulse Rate [ From Monitor] Respiratory 24 24 24 Rate Blood Pressure 100/65 94/63 97/70 O2 Sat by Pulse 96 97 96 Oximetry 20/20 07/20/20 2020 09:30 09:35 09:45 Temperature Pulse Rate 131 H 120 H 130 H Pulse Rate [ From Monitor] Respiratory 24 24 Rate Blood Pressure 103/76 103/76 106/80 O2 Sat by Pulse 97 97 97 Oximetry 20/20 07/20/20 /20/20 10:00 10:15 10:30 Temperature Pulse Rate 130 H 131 H 129 H Pulse Rate [ From Monitor] Respiratory 24 23 23 Rate Blood Pressure 108/78 108/78 107/56 O2 Sat by Pulse 96 95 95 Oximetry 20/20 /20/20 10:45 11:01 Temperature Pulse Rate 128 H 131 H Pulse Rate [ From Monitor] Respiratory 23 23 Rate Blood Pressure 107/56 84/60 O2 Sat by Pulse 95 95 Oximetry - Lab 09/07/19 04:34 09/07/19 04:34 Most recent lab results ABG pH 7.376 pH Units (7.350-7.450) 09/07/19 03:47 ABG pCO2 50.0 mm Hg 09/07/19 03:47 ABG pO2 107.0 mm Hg (80.0-90.0) H 09/07/19 03:47 ABG HCO3 28.6 mmol/L (20.0-26.0) H 09/07/19 03:47 ABG O2 Saturation 97.8 % (95.0-99.0) 09/07/19 03:47 Calcium 8.3 mg/dL (8.4-10.2) L 09/07/19 04:34 Phosphorus 6.10 mg/dL (2.5-4.5) H 09/07/19 04:34 Magnesium 2.20 mg/dL (1.7-2.3) 09/07/19 04:34 Medications & Allergies - Medications Allergies/Adverse Reactions: Allergies No Known Allergies Allergy (Unverified 09/02/19 05:22) Home Medications: Home Medications Medication Instructions Recorded Confirmed Last Taken Type Amiodarone [Cordarone 200 MG TAB] 200 mg PO DAILY 09/03/19 09/03/19 Unknown History Apixaban [Eliquis] 5 mg PO DAILY 09/03/19 09/03/19 Unknown History Finasteride 5 mg PO DAILY 09/03/19 09/03/19 Unknown History Furosemide [Lasix TAB] 20 mg PO DAILY 09/03/19 09/03/19 Unknown History Metoprolol Xl [Metoprolol 50 mg PO DAILY 09/03/19 09/03/19 Unknown History SUCCINATE ER TAB] Sertraline [Zoloft] 50 mg PO QDAY 09/03/19 09/03/19 Unknown History lisinopriL [Zestril TAB] 10 mg PO DAILY 09/03/19 09/03/19 Unknown History Active Medications: Generic Name Dose Route Start Last Admin Trade Name Freq PRN Reason Stop Dose Admin Acetaminophen 650 mg 09/03/19 00:06 Tylenol PO Q4H PRN Pain MILD(1-3)/Fever >100.5/BLANKENSHIP Amiodarone HCl 200 mg 09/05/19 10:00 09/07/19 09:14 Cordarone PO 200 mg BID BANDAR Administration Apixaban 5 mg 09/04/19 10:00 09/07/19 10:32 Eliquis PO 5 mg DAILY BANDAR Administration Protocol Famotidine 20 mg 09/06/19 11:00 09/07/19 09:14 Pepcid IV 20 mg DAILY BANDAR Administration Finasteride 5 mg 09/04/19 10:00 09/07/19 09:15 Proscar PO 5 mg DAILY BANDAR Administration Hydrocortisone Sodium Succinate 100 mg 09/06/19 14:00 09/07/19 06:07 Solu-Cortef IV 100 mg Q8HR BANDAR Administration Norepinephrine 8 mg/ Sodium 250 mls @ 3.75 mls/hr 09/04/19 23:00 09/07/19 10:02 Chloride IV 28 mcg/min TITR BANDAR 52.5 mls/hr Titration Protocol 2 MCG/MIN Epinephrine 16 mg/ Sodium 250 mls @ 1.875 mls/hr 09/04/19 23:45 09/07/19 10:35 Chloride IV 6 mcg/min TITR BANDAR 5.625 mls/hr Titration Protocol 2 MCG/MIN Dopamine HCl/Dextrose 800 mg in 250 mls @ 2.739 mls/hr 09/05/19 01:00 09/06/19 22:43 Intropin Drip 800 Mg/D5w 250 Ml IV 0 mcg/kg/min TITR BANDAR 0 mls/hr Titration Protocol 2 MCG/KG/MIN Phenylephrine HCl 100 mg/ 100 mls @ 3 mls/hr 09/06/19 23:00 09/07/19 11:51 Sodium Chloride IV 100 mcg/min TITR BANDAR 6 mls/hr Titration Protocol 50 MCG/MIN Insulin Human Lispro 0 unit 09/07/19 12:00 Humalog SUB-Q Q6HR [facility] Protocol Ondansetron HCl 4 mg 09/03/19 00:06 09/04/19 13:05 Zofran IV 4 mg Q8H PRN Administration Nausea And Vomiting Sodium Chloride 10 ml 09/03/19 10:00 09/07/19 09:15 Sodium Chloride Flush Syringe 10 Ml IV 10 ml BID BANDAR Administration Sodium Chloride 10 ml 09/03/19 00:06 Sodium Chloride Flush Syringe 10 Ml IV PRN PRN LINE FLUSH
--- NOTE | 2019-09-07 12:20 | Consultation ---
History of Present Illness - Reason for Consult Consult date: 09/07/19 acute renal failure - History of Present Illness Hx obtained from medical records Mr. Ogden is a 69yo gentleman with severe dilated cardiomyopathy (EF 15%) and hx of ICD who presented to [facility] ED with shortness of breath and fatigue, chest x-ray on presentation showed bilateral pulmonary infiltrates consistent with acu te pulmonary edema. In the ED, the suddenly developed sustained ventricular tachycardia prompting repeated firing of his defibrillator. His rhythm eventually stabilized with the administration of intravenous amiodarone. Labs at admission were notable for SCr 1.2mg/dL, Mg 2.2 and K 4.9. Patient with multiple episodes of cardiac arrest requiring CPR; he now requires pressors - Levo, Neosynephrine and Epinehrine gtt. Nephrology consultation requested for assistance in management of JILLIAN - SCr 4.4mg/dL Past History Past Medical History: atrial fib, heart failure Medications and Allergies Allergies Allergy/AdvReac Type Severity Reaction Status Date / Time No Known Allergies Allergy Unverified 09/02/19 05:22 Home Medications Medication Instructions Recorded Confirmed Last Taken Type Amiodarone [Cordarone 200 MG TAB] 200 mg PO DAILY 09/03/19 09/03/19 Unknown H istory Apixaban [Eliquis] 5 mg PO DAILY 09/03/19 09/03/19 Unknown History Finasteride 5 mg PO DAILY 09/03/19 09/03/19 Unknown History Furosemide [Lasix TAB] 20 mg PO DAILY 09/03/19 09/03/19 Unknown History Metoprolol Xl [Metoprolol 50 mg PO DAILY 09/03/19 09/03/19 Unknown History SUCCINATE ER TAB] Sertraline [Zoloft] 50 mg PO QDAY 09/03/19 09/03/19 Unknown History lisinopriL [Zestril TAB] 10 mg PO DAILY 09/03/19 09/03/19 Unknown History Active Meds: Active Medications Acetaminophen (Tylenol) 650 mg PO Q4H PRN PRN Reason: Pain MILD(1-3)/Fever >100.5/BLANKENSHIP Amiodarone HCl (Cordarone) 200 mg PO BID [facility] Last Admin: 09/07/19 09:14 Dose: 200 mg Documented by: Apixaban (Eliquis) 5 mg PO DAILY [facility]; Protocol Last Admin: 09/07/19 10:32 Dose: 5 mg Documented by: Famotidine (Pepcid) 20 mg IV DAILY BANDAR Last Admin: 09/07/19 09:14 Dose: 20 mg Documented by: Finasteride (Proscar) 5 mg PO DAILY BANDAR Last Admin: 09/07/19 09:15 Dose: 5 mg Documented by: Hydrocortisone Sodium Succinate (Solu-Cortef) 100 mg IV Q8HR BANDAR Last Admin: 09/07/19 06:07 Dose: 100 mg Documented by: Norepinephrine 8 mg/ Sodium (Chloride) 250 mls @ 3.75 mls/hr IV TITR BANDAR; Protocol Last Titration: 09/07/19 10:02 Dose: 28 mcg/min, 52.5 mls/hr Documented by: Epinephrine 16 mg/ Sodium (Chloride) 250 mls @ 1.875 mls/hr IV TITR BANDAR; Protocol Last Titration: 09/07/19 10:35 Dose: 6 mcg/min, 5.625 mls/hr Documented by: Dopamine HCl/Dextrose (Intropin Drip 800 Mg/D5w 250 Ml) 800 mg in 250 mls @ 2.739 mls/hr IV TITR BANDAR; Protocol Last Titration: 09/06/19 22:43 Dose: 0 mcg/kg/min, 0 mls/hr Documented by: Phenylephrine HCl 100 mg/ (Sodium Chloride) 100 mls @ 3 mls/hr IV TITR BANDAR; Protocol Last Titration: 09/07/19 11:51 Dose: 100 mcg/min, 6 mls/hr Documented by: Insulin Human Lispro (Humalog) 0 unit SUB-Q Q6HR BANDAR; Protocol Ondansetron HCl (Zofran) 4 mg IV Q8H PRN PRN Reason: Nausea And Vomiting Last Admin: 09/04/19 13:05 Dose: 4 mg Documented by: Sodium Chloride (Sodium Chloride Flush Syringe 10 Ml) 10 ml IV BID [facility] Last Admin: 09/07/19 09:15 Dose: 10 ml Documented by: Sodium Chloride (Sodium Chloride Flush Syringe 10 Ml) 10 ml IV PRN PRN PRN Reason: LINE FLUSH Review of Systems ROS unobtainable: due to endotracheal tube Exam - Vital Signs Vital signs: Vital Signs Pulse Ox 97 09/02/19 05:05 - General Appearance General appearance: intubated EENT: ATNC, other (ETT in place) Respiratory: Other (coarse breath sounds) Heart: tachycardia Gastrointestinal: Present: hypoactive bowel sounds. Absent: distended Integumentary: warm and dry Results - Lab Results 09/07/19 04:34 09/07/19 04:34 Most recent lab results ABG pH 7.376 pH Units (7.350-7.450) 09/07/19 03:47 ABG pCO2 50.0 mm Hg 09/07/19 03:47 ABG pO2 107.0 mm Hg (80.0-90.0) H 09/07/19 03:47 ABG HCO3 28.6 mmol/L (20.0-26.0) H 09/07/19 03:47 ABG O2 Saturation 97.8 % (95.0-99.0) 09/07/19 03:47 Calcium 8.3 mg/dL (8.4-10.2) L 09/07/19 04:34 Phosphorus 6.10 mg/dL (2.5-4.5) H 09/07/19 04:34 Magnesium 2.20 mg/dL (1.7-2.3) 09/07/19 04:34 Assessment and Plan Impression: * Acute kidney injury secondary to ischemic ATN due to hypoperfusion * VTach arrest * Hypotension * Acute hypoxic respiratory failure * Dilated cardiomyopathy - EF 15% * Transaminitis likely due to shock liver Plan: * Due to hemodynamic instability, patient is not a candidate for dialysis * Conservative management of lytes, fluid balance is recommended at this time * Cardiology following * Vent management per pulmonary/critical care * Pressors prn to maintain MAP>65 * Dose medications for renal function * Avoid potential nephrotoxins * Prognosis is poor * Recommendations discussed with Dr. Parmar
[2019-09-07] MEDS: PHENYLEPHRINE 100 MG in SODIUM CHLORIDE 0.9% 90 ML IV SCH (15:51)
--- NOTE | 2019-09-07 16:05 | Progress Note ---
Assessment and Plan Assessment and plan: -COVID 19 test negative x2 --Febrile illness; Patient recently completed 5 days of Rocephin, cultures negative to date probably central fever. Possibly central fever due to anoxic brain injury Antibiotics, repeat urine and blood cultures --Cardiac arrest /multiple events ; status post CPR per ACLS protocol, check code sheets. On ventilatory support, cardiology following. --Possible anoxic brain injury; Supportive care, consider neurology consult --Acute hypoxic respiratory failure: Intubated on vent Multifactorial, CHF, COPD exacerbation, Cardiac arrest Continue ventilatory support, wean as tolerated and extubate --Severe cardiogenic shock; on multiple pressors. Closely monitor --Acute on chronic systolic CHF, EF 15 to 20% Current Visit: Yes Status: Chronic Continue Lasix input output monitoring,, low-sodium diet Fluid restriction, echocardiogram for LV function ejection fraction. --s/p Sustained VT; Patient was asymptomatic ICD in place, cardiology following --Acute exacerbation of end-stage COPD ; Current Visit: Yes Status: Acute Duo nebs and steroids and IV antibiotics Ventilatory support, pulmonary critical following --Acute kidney injury; secondary to ATN Worsening renal function gentle hydration, nephrology consult --Hyperkalemia; Kayexalate, resolved --Shock liver; transaminases in thousands Due to severe hypotension and cardiac arrest AST 2750, ALT 1466 closely monitor, GI consult if needed. --History of A. fib; continue beta-blockers, amiodarone chronic anticoagulation with Eliquis --Severe cardiomyopathy/ICD Interrogation as needed, cardiology consulted, -- Bilateral pneumonia Current Visit: Yes Status: Acute . Continue IV Rocephin and Zithromax Ventilatory support -- h/o Hypertension Current Visit: Yes Status: Chronic Patient is hypotensive and in shock Requiring pressors, hold antihypertensive medications --Type 2 diabetes mellitus Current Visit: Yes Status: Chronic Accu-Cheks adding scale coverage ADA diet insulin as needed, A1c; 6.2 --Coronary artery disease Current Visit: Yes Status: Chronic Continue current cardiac medications --DVT prophylaxis Current Visit: Yes Status: Acute On Eliquis --Full code: Status Coater Slate recommendations noted and appreciated patient is critically ill with multiorgan involvement, multiple events of cardiac arrest, Possible anoxic brain injury very poor prognosis, recommend DNR /palliative care/hospice Plan of care reviewed with the patient's nurse, discussed with basketball player Dr. Parmar. Consults and recommendations noted 09/07/19; patient spiked fever, probably central in origin. critically ill, unresponsive, received 5 days of Rocephin,Check new set of cultures, antibiotics The high probability of a clinically significant, sudden or life threatening deterioration of the [cardiac , infectious, metabolic, GI and liver and pulmonary] system(s) required my full and direct attention, intervention and personal management. The aggregate critical care time was [35] minutes. This time is in addition to time spent performing reported procedures but includes the following: [x] Data Review and interpretation [x] Patient assessment and monitoring of vital signs [x] Documentation [x] Medication orders and management I discussed with patient's daughter Ms. Ramirez Multiple times, patient's condition, poor prognosis, test reports CODE STATUS. She requested full CODE STATUS at this point Family still discussing and deciding the goals of treatment and CODE STATUS History Interval history: Patient seen at the bedside this morning Patient's chart and medications reviewed Admitted with multiple events of cardiac arrest status post CPR Possible anoxic brain injury, Patient is unresponsive intubated on ventilatory support Vital signs noted Hospitalist Physical - Constitutional Vitals: Temp Pulse Resp BP Pulse Ox 99.7 F H 114 H 24 86/62 95 09/07/19 12:00 09/07/19 15:00 09/07/19 15:00 09/07/19 15:00 09/07/19 15:00 General appearance: Present: mild distress, well-nourished, other (On ventilatory support) - EENT Eyes: Present: PERRL, EOM intact - Neck Neck: Present: supple, normal ROM - Respiratory Respiratory effort: normal Respiratory: bilateral: diminished, rales, negative: rhonchi, wheezing - Cardiovascular Rhythm: regular Heart Sounds: Present: S1 & S2 - Extremities Extremities: no ischemia, No edema - Abdominal General gastrointestinal: soft, non-tender, non-distended, normal bowel sounds - Integumentary Integumentary: Present: clear, warm, erythema, jaundice, rash - Psychiatric Psychiatric: other (On vent) - Neurologic Neurologic: other (On vent) HEART Score - HEART Score Troponin: Troponin T < 0.010 ng/mL (0.00-0.029) 09/02/19 07:23 Results - Labs CBC & Chem 7: 09/07/19 04:34 09/07/19 04:34 Labs: Laboratory Last Values WBC 18.3 K/mm3 (4.5-11.0) H 09/07/19 04:34 RBC 5.63 M/mm3 (3.65-5.03) H 09/07/19 04:34 Hgb 14.5 gm/dl (11.8-15.2) 09/07/19 04:34 Hct 46.2 % (35.5-45.6) H D 09/07/19 04:34 MCV 82 fl (84-94) L 09/07/19 04:34 MCH 26 pg (28-32) L 09/07/19 04:34 MCHC 31 % (32-34) L 09/07/19 04:34 RDW 19.1 % (13.2-15.2) H 09/07/19 04:34 Plt Count 200 K/mm3 (140-440) 09/07/19 04:34 Lymph % (Auto) 8.3 % (13.4-35.0) L 09/03/19 04:25 Ray % (Auto) 2.5 % (0.0-7.3) 09/03/19 04:25 Eos % (Auto) 0.0 % (0.0-4.3) 09/03/19 04:25 Baso % (Auto) 0.1 % (0.0-1.8) 09/03/19 04:25 Lymph # 0.4 K/mm3 (1.2-5.4) L 09/03/19 04:25 Ray # 0.1 K/mm3 (0.0-0.8) 09/03/19 04:25 Eos # 0.0 K/mm3 (0.0-0.4) 09/03/19 04:25 Baso # 0.0 K/mm3 (0.0-0.1) 09/03/19 04:25 Add Manual Diff Complete 09/07/19 04:34 Total Counted 100 09/07/19 04:34 Seg Neutrophils % Solar System Installer 09/07/19 04:34 Seg Neuts % (Manual) 93.0 % (40.0-70.0) H 09/07/19 04:34 Band Neutrophils % 0 % 09/07/19 04:34 Lymphocytes % (Manual) 2.0 % (13.4-35.0) L 09/07/19 04:34 Reactive Lymphs % (Man) 0 % 09/07/19 04:34 Monocytes % (Manual) 5.0 % (0.0-7.3) 09/07/19 04:34 Eosinophils % (Manual) 0 % (0.0-4.3) 09/07/19 04:34 Basophils % (Manual) 0 % (0.0-1.8) 09/07/19 04:34 Metamyelocytes % 0 % 09/07/19 04:34 Myelocytes % 0 % 09/07/19 04:34 Promyelocytes % 0 % 09/07/19 04:34 Blast Cells % 0 % 09/07/19 04:34 Nucleated RBC % Not Reportable 09/07/19 04:34 Seg Neutrophils # 4.4 K/mm3 (1.8-7.7) 09/03/19 04:25 Seg Neutrophils # Man 17.0 K/mm3 (1.8-7.7) H 09/07/19 04:34 Band Neutrophils # 0.0 K/mm3 09/07/19 04:34 Lymphocytes # (Manual) 0.4 K/mm3 (1.2-5.4) L 09/07/19 04:34 Abs React Lymphs (Man) 0.0 K/mm3 09/07/19 04:34 Monocytes # (Manual) 0.9 K/mm3 (0.0-0.8) H 09/07/19 04:34 Eosinophils # (Manual) 0.0 K/mm3 (0.0-0.4) 09/07/19 04:34 Basophils # (Manual) 0.0 K/mm3 (0.0-0.1) 09/07/19 04:34 Metamyelocytes # 0.0 K/mm3 09/07/19 04:34 Myelocytes # 0.0 K/mm3 09/07/19 04:34 Promyelocytes # 0.0 K/mm3 09/07/19 04:34 Blast Cells # 0.0 K/mm3 09/07/19 04:34 WBC Morphology Not Reportable 09/07/19 04:34 Hypersegmented Neuts Not Reportable 09/07/19 04:34 Hyposegmented Neuts Not Reportable 09/07/19 04:34 Hypogranular Neuts Not Reportable 09/07/19 04:34 Smudge Cells Not Reportable 09/07/19 04:34 Toxic Granulation Not Reportable 09/07/19 04:34 Toxic Vacuolation Not Reportable 09/07/19 04:34 Dohle Bodies Not Reportable 09/07/19 04:34 Pelger-Huet Anomaly Not Reportable 09/07/19 04:34 Shirley Rods Not Reportable 09/07/19 04:34 Platelet Estimate Consistent w auto 09/07/19 04:34 Clumped Platelets Not Reportable 09/07/19 04:34 Plt Clumps, EDTA Not Reportable 09/07/19 04:34 Large Platelets Not Reportable 09/07/19 04:34 Giant Platelets Not Reportable 09/07/19 04:34 Platelet Satelliting Not Reportable 09/07/19 04:34 Plt Morphology Comment Not Reportable 09/07/19 04:34 RBC Morphology Not Reportable 09/07/19 04:34 Dimorphic RBCs Not Reportable 09/07/19 04:34 Polychromasia Few 09/07/19 04:34 Hypochromasia Not Reportable 09/07/19 04:34 Poikilocytosis 2+ 09/07/19 04:34 Anisocytosis Not Reportable 09/07/19 04:34 Microcytosis Not Reportable 09/07/19 04:34 Macrocytosis Not Reportable 09/07/19 04:34 Spherocytes Not Reportable 09/07/19 04:34 Pappenheimer Bodies Not Reportable 09/07/19 04:34 Sickle Cells Not Reportable 09/07/19 04:34 Target Cells 1+ 09/07/19 04:34 Tear Drop Cells Not Reportable 09/07/19 04:34 Ovalocytes 2+ 09/07/19 04:34 Helmet Cells Not Reportable 09/07/19 04:34 [place] Bodies Not Reportable 09/07/19 04:34 Donnelly Rings Not Reportable 09/07/19 04:34 Hanna Cells 1+ 09/07/19 04:34 Bite Cells Not Reportable 09/07/19 04:34 Crenated Cell Not Reportable 09/07/19 04:34 Elliptocytes 2+ 09/07/19 04:34 Acanthocytes (Spur) Not Reportable 09/07/19 04:34 Rouleaux Not Reportable 09/07/19 04:34 Hemoglobin C Crystals Not Reportable 09/07/19 04:34 Schistocytes Few 09/07/19 04:34 Malaria parasites Not Reportable 09/07/19 04:34 Tera Bodies Not Reportable 09/07/19 04:34 Hem Pathologist Commnt No 09/07/19 04:34 PT 23.0 Sec. (12.2-14.9) H 09/02/19 07:23 INR 2.10 (0.87-1.13) H 09/02/19 07:23 APTT 33.0 Sec. (24.2-36.6) 09/02/19 07:23 D-Dimer 689.74 ng/mlDDU (0-234) H 09/02/19 Unknown ABG pH 7.376 pH Units (7.350-7.450) 09/07/19 03:47 ABG pCO2 50.0 mm Hg 09/07/19 03:47 ABG pO2 107.0 mm Hg (80.0-90.0) H 09/07/19 03:47 ABG HCO3 28.6 mmol/L (20.0-26.0) H 09/07/19 03:47 ABG O2 Saturation 97.8 % (95.0-99.0) 09/07/19 03:47 ABG O2 Content 20.0 (0.0-44) 09/07/19 03:47 ABG Base Excess 2.5 mmol/L (-2.0-3.0) 09/07/19 03:47 ABG Hemoglobin 14.9 gm/dl (14.0-18.0) 09/07/19 03:47 ABG Carboxyhemoglobin 1.9 % (0.0-5.0) 09/07/19 03:47 ABG Methemoglobin 0.6 % (0.0-1.5) 09/07/19 03:47 Oxyhemoglobin 95.3 % (95.0-99.0) 09/07/19 03:47 FiO2 80 % 09/07/19 03:47 Sodium 149 mmol/L (137-145) H 09/07/19 04:34 Potassium 4.9 mmol/L (3.6-5.0) 09/07/19 04:34 Chloride 105.2 mmol/L (98-107) 09/07/19 04:34 Carbon Dioxide 27 mmol/L (22-30) 09/07/19 04:34 Anion Gap 22 mmol/L 09/07/19 04:34 BUN 83 mg/dL (9-20) H 09/07/19 04:34 Creatinine 4.4 mg/dL (0.8-1.5) H 09/07/19 04:34 Estimated GFR 16 ml/min 09/07/19 04:34 BUN/Creatinine Ratio 19 % 09/07/19 04:34 Glucose 174 mg/dL (75-100) H 09/07/19 04:34 POC Glucose 178 (70-105) H 09/07/19 12:33 Hemoglobin A1c 6.2 % (4-6) H 09/03/19 04:25 Lactic Acid 1.90 mmol/L (0.7-2.0) 09/02/19 09:33 Calcium 8.3 mg/dL (8.4-10.2) L 09/07/19 04:34 Phosphorus 6.10 mg/dL (2.5-4.5) H 09/07/19 04:34 Magnesium 2.20 mg/dL (1.7-2.3) 09/07/19 04:34 Ferritin 252.7 ng/mL (13.0-400.0) 09/02/19 09:33 Total Bilirubin 1.80 mg/dL (0.1-1.2) H 09/07/19 04:34 Direct Bilirubin 0.9 mg/dL (0-0.2) H 09/02/19 09:33 Indirect Bilirubin 2.1 mg/dL 09/02/19 09:33 AST 712 units/L (5-40) H 09/07/19 04:34 ALT 1183 units/L (7-56) H 09/07/19 04:34 Alkaline Phosphatase 141 units/L (35-129) H 09/07/19 04:34 Lactate Dehydrogenase 252 units/L (91-180) H 09/02/19 09:33 Troponin T < 0.010 ng/mL (0.00-0.029) 09/02/19 07:23 C-Reactive Protein 3.80 mg/dL (0.00-1.30) H 09/02/19 09:33 NT-Pro-B Natriuret Pep 90827 pg/mL (0-900) H 09/02/19 07:23 Total Protein 5.8 g/dL (6.3-8.2) L 09/07/19 04:34 Albumin 1.9 g/dL (3.9-5) L 09/07/19 04:34 Albumin/Globulin Ratio 0.5 % 09/07/19 04:34 Procalcitonin < 0.05 ng/mL (<0.15) 09/02/19 09:33 TSH 2.670 mlU/mL (0.270-4.200) 09/04/19 11:14 Free T4 1.08 ng/dL (0.76-1.46) 09/04/19 11:14 Urine Opiates Screen Presumptive negative 09/06/19 03:20 Urine Methadone Screen Presumptive negative 09/06/19 03:20 Ur Barbiturates Screen Presumptive negative 09/06/19 03:20 Ur Phencyclidine Scrn Presumptive negative 09/06/19 03:20 Ur Amphetamines Screen Presumptive negative 09/06/19 03:20 U Benzodiazepines Scrn Presumptive negative 09/06/19 03:20 Urine Cocaine Screen Presumptive negative 09/06/19 03:20 U Marijuana (THC) Screen Presumptive negative 09/06/19 03:20 Drugs of Abuse Note Disclamer 09/06/19 03:20 Coronavirus (PCR) Negative (Negative) 09/06/19 Unknown Microbiology: Microbiology 09/05/19 Unknown Tracheal Aspirate Sputum Culture - Preliminary 09/02/19 Unknown Peripheral/Venous Blood Culture - Final NO GROWTH AFTER 5 DAYS 09/02/19 Unknown Peripheral/Venous Blood Culture - Final NO GROWTH AFTER 5 DAYS - Diagnostic Impressions Diagnostic Impressions: Echocardiogram 09/03/19 00:18 Transthoracic Echocardiogram Indication: Dyspnea BP: 102/57 HR: 98 Conclusions *Severe, 4-chamber dilated cardiomyopathy. *Global left ventricular systolic function is severely decreased. *The estimated ejection fraction is Less Than 15-20%. *Mild concentric left ventricular hypertrophy is observed. *There is mild aortic regurgitation. *There is mild to moderate mitral regurgitation. *There is at least moderate tricuspid regurgitation. *There is moderately-severe pulmonary hypertension. *The right ventricular systolic pressure is calculated at 61 mmHg. *A pacemaker wire is visualized in the right jeart chambers. Findings Left Ventricle: The left ventricular chamber size is severely dilated. Mild concentric left ventricular hypertrophy is observed. Global left ventricular systolic function is severely decreased. The estimated ejection fraction is 15-20%. Left Atrium: The left atrium is severely dilated. Right Ventricle: The right ventricle is moderate to severely dilated. The right ventricular global systolic function is severely reduced. A pacemaker wire is visualized in the right ventricle. Right Atrium: The right atrium is moderately dilated. A pacemaker wire is visualized in the right atrium. Aortic Valve: The aortic valve is trileaflet. The aortic valve leaflets are mildly thickened. There is mild aortic regurgitation. There is no evidence of aortic stenosis. The mean gradient of the aortic valve is 1.87 mmHg. Mitral Valve: The mitral valve leaflets are mildly thickened. There is mild to moderate mitral regurgitation. There is no evidence of mitral stenosis. Tricuspid Valve: There is moderate tricuspid regurgitation. The right ventricular systolic pressure is calculated at 61 mmHg. There is evidence of severe pulmonary hypertension. Pulmonic Valve: There is mild pulmonic regurgitation. Pericardium: There is no pericardial effusion. Aorta: There is no dilatation of the ascending aorta. There is no dilatation of the aortic root. Venous: The inferior vena cava is dilated. Measurements Chambers 2D Name Value Normal Range IVSd (2D) 0.83 cm (0.6 - 1.1) LVPWd (2D) 0.89 cm (0.6 - 1.1) LVIDd (2D) 6.97 cm (3.7 - 5.6) LVIDs (2D) 6.29 cm (2 - 3.8) LV FS (2D) 9.75 % - EF Teichholz (2D) 20.75 % - Ao root diameter (2D) 3.18 cm (2 - 3.7) Volumes/Mass Name Value Normal Range LA ESV SP 4CH (A/L) 102.95 ml - LA ESV SP 2CH (A/L) 148.69 ml - LA ESV BP (A/L) 128.54 ml - LA ESV BP (A/L) index 69.86 ml/m2 - LA ESV SP 4CH (MOD) 97.53 ml - LA ESV SP 2CH (MOD) 134.72 ml - LA ESV BP (MOD) 118.72 ml - LA ESV BP (MOD) index 64.52 ml/m2 - LV EDV SP 4CH (MOD) 265.95 ml - LV ESV SP 4CH (MOD) 198.9 ml - EF SP 4CH (MOD) 25.21 % - LV EDV SP 2CH (MOD) 240.8 ml - LV ESV SP 2CH (MOD) 201.36 ml - EF SP 2CH (MOD) 16.38 % - LV EDV BP 254.43 ml - LV ESV BP 204.99 ml - BP EF (MOD) 19.43 % - Diastolic/Systolic Function Name Value Normal Range MV E-wave Vmax 0.86 m/sec - MV deceleration time 172.86 msec - MV A-wave Vmax 0.44 m/sec - MV E:A ratio 1.94 ratio - Aortic Valve Name Value Normal Range AV Vmax 0.87 m/sec - AV VTI 17.36 cm - AV peak gradient 3.03 mmHg - AV mean gradient 1.87 mmHg - LVOT diameter 2.15 cm - LVOT Vmax 0.79 m/sec - LVOT VTI 10.29 cm - LVOT peak gradient 2.53 mmHg - LVOT mean gradient 1.07 mmHg - SV LVOT 37.26 ml - CHARLES (continuity Vmax) 3.31 cm2 - CHARLES (continuity VTI) 2.15 cm2 - AR PHT 930.2 msec - AR peak gradient 33.96 mmHg - Ascending Ao 3.39 cm - Mitral Valve Name Value Normal Range MV Vmax 0.95 m/sec - MV VTI 20.87 cm - MV peak gradient 3.65 mmHg - MV mean gradient 1.09 mmHg - MV PHT 58.55 msec - MVA (PHT) 3.76 cm2 - MVA (continuity VTI) 1.79 cm2 - Tricuspid Valve Name Value Normal Range TR Vmax 3.65 m/sec - TR peak gradient 53 mmHg - RAP 8 mmHg - RVSP 61 mmHg - IVC diameter 2.47 cm (1.2 - 2.3) Pulmonic Valve/Qp:Qs Name Value Normal Range PV Vmax 0.77 m/sec - PV VTI 15.61 cm - PV peak gradient 2.38 mmHg - PV mean gradient 1.17 mmHg - AR end-diastolic Vmax 1.4 m/sec - RVOT Vmax 0.56 m/sec - RVOT VTI 9.24 cm - RVOT peak gradient 1.27 mmHg - Estevez/IV: Voiding Method Indwelling Catheter IV Catheter Type [Right Triple Lumen Cath Femoral] IV Catheter Type [Right Hand] INT / Saline Lock IV Catheter Type [Right Peripheral IV Forearm] IV Catheter Type [Left Peripheral IV Antecubital] Active Medications - Current Medications Current Medications: Generic Name Dose Route Start Last Admin Trade Name Freq PRN Reason Stop Dose Admin Acetaminophen 650 mg 09/03/19 00:06 Tylenol PO Q4H PRN Pain MILD(1-3)/Fever >100.5/BLANKENSHIP Amiodarone HCl 200 mg 09/05/19 10:00 09/07/19 09:14 Cordarone PO 200 mg BID BANDAR Administration Apixaban 5 mg 09/04/19 10:00 09/07/19 10:32 Eliquis PO 5 mg DAILY BANDAR Administration Protocol Famotidine 20 mg 09/06/19 11:00 09/07/19 09:14 Pepcid IV 20 mg DAILY BANDAR Administration Finasteride 5 mg 09/04/19 10:00 09/07/19 09:15 Proscar PO 5 mg DAILY BANDAR Administration Hydrocortisone Sodium Succinate 100 mg 09/06/19 14:00 09/07/19 13:50 Solu-Cortef IV 100 mg Q8HR BANDAR Administration Norepinephrine 8 mg/ Sodium 250 mls @ 3.75 mls/hr 09/04/19 23:00 09/07/19 13:03 Chloride IV 28 mcg/min TITR BANDAR 52.5 mls/hr Administration Protocol 2 MCG/MIN Epinephrine 16 mg/ Sodium 250 mls @ 1.875 mls/hr 09/04/19 23:45 09/07/19 13:34 Chloride IV 6 mcg/min TITR BANDAR 5.625 mls/hr Titration Protocol 2 MCG/MIN Dopamine HCl/Dextrose 800 mg in 250 mls @ 2.739 mls/hr 09/05/19 01:00 09/06/19 22:43 Intropin Drip 800 Mg/D5w 250 Ml IV 0 mcg/kg/min TITR BANDAR 0 mls/hr Titration Protocol 2 MCG/KG/MIN Phenylephrine HCl 100 mg/ 100 mls @ 3 mls/hr 09/06/19 23:00 09/07/19 15:51 Sodium Chloride IV 100 mcg/min TITR BANDAR 6 mls/hr Administration Protocol 50 MCG/MIN Insulin Human Lispro 0 unit 09/07/19 12:00 09/07/19 12:43 Humalog SUB-Q 2 unit Q6HR BANDAR Administration Protocol Ondansetron HCl 4 mg 09/03/19 00:06 09/04/19 13:05 Zofran IV 4 mg Q8H PRN Administration Nausea And Vomiting Sodium Chloride 10 ml 09/03/19 10:00 09/07/19 09:15 Sodium Chloride Flush Syringe 10 Ml IV 10 ml BID BANDAR Administration Sodium Chloride 10 ml 09/03/19 00:06 Sodium Chloride Flush Syringe 10 Ml IV PRN PRN LINE FLUSH
[2019-09-07] MEDS: ACETAMINOPHEN 325 MG TAB PO PRN ×2 (17:26→21:26)
[2019-09-07] MEDS ORDERED: NORepinephrine/NS 4 MG-250 ML 4 MG/250 ML BAG IV SCH (18:00)
[2019-09-08] MEDS: NORepinephrine 8 MG in SODIUM CHLORIDE 0.9% 250ML 242 ML IV SCH ×3 (00:35→10:30)
[2019-09-08] MEDS: INSULIN LISPRO 100 UNIT/ML SUB-Q SCH ×3 (00:35→12:31)
[2019-09-08] MEDS: PHENYLEPHRINE 100 MG in SODIUM CHLORIDE 0.9% 90 ML IV SCH (04:26)
[2019-09-08 05:37] LABS: ABG Base Excess 4.5 mmol/L (-2.0-3.0); ABG HCO3 29.7 mmol/L (20.0-26.0); ABG Methemoglobin 0.6 % (0.0-1.5); ABG Oxygen Saturation 96.6 % (95.0-99.0); ABG PH 7.428 pH Units (7.350-7.450); ABG PO2 81.2 mm Hg (80.0-90.0)
[2019-09-08] MEDS: HYDROCORTISONE SOD SUCC 100 MG/2 ML VIAL IV SCH ×2 (06:16→13:19)
[2019-09-08] MEDS: AMIODARONE 200 MG TAB PO SCH (09:19)
[2019-09-08] MEDS: APIXABAN 5 MG TAB PO SCH (09:19)
[2019-09-08] MEDS: FINASTERIDE 5 MG TAB PO SCH (09:19)
[2019-09-08] MEDS: FAMOTIDINE 20 MG/2 ML INJ IV SCH (09:19)
--- NOTE | 2019-09-08 11:12 | Progress Note ---
Assessment and Plan Acute on chronic CHF Dilated cardiomyopathy, LVEF 10-15% - patient follows with Dr Prince Livingston at [place] Cardiac arrest Patient found pulseless and unresponsive while in the ED Multiple AICD shocks earlier for sustained VT On po amiodarone Cardiogenic shock On multiple pressors Acute renal failure FAMOCO AICD Paroxysmal atrial fibrillation End-stage COPD History of cocaine abuse UDS negative this admission Supportive cardiac care Subjective Date of service: 09/08/19 Principal diagnosis: Cardiac arrest Interval history: Patient remains unresponsive on the vent and on multiple pressors for support. Objective Vital Signs Temp Pulse Pulse Resp BP Pulse Ox 09/08/19 09:00 121 H 09/08/19 08:45 112 H 24 129/101 95 09/08/19 08:30 120 H 24 119/84 94 09/08/19 08:15 114 H 24 114/74 95 09/08/19 08:03 109 H 115/79 96 09/08/19 08:01 106 H 24 115/79 96 09/08/19 08:00 114 H 24 95 09/08/19 07:45 113 H 24 108/69 96 09/08/19 07:30 122 H 24 110/70 97 09/08/19 07:15 118 H 24 119/62 96 09/08/19 07:00 110 H 24 113/74 97 09/08/19 06:45 112 H 24 113/66 97 09/08/19 06:31 118 H 24 110/67 97 09/08/19 06:15 116 H 24 104/61 97 09/08/19 06:01 125 H 24 102/67 97 09/08/19 05:45 125 H 24 88/61 97 09/08/19 05:30 111 H 24 88/61 97 09/08/19 05:15 127 H 24 96/69 97 09/08/19 05:01 106 H 24 96/69 97 09/08/19 05:00 123 H 09/08/19 04:45 108 H 24 105/61 97 09/08/19 04:30 117 H 24 106/74 97 09/08/19 04:24 100.9 F H 09/08/19 04:15 108 H 24 105/85 97 09/08/19 04:01 109 H 24 104/70 97 09/08/19 04:00 99.6 F 115 H 23 95 09/08/19 03:45 115 H 24 106/76 97 09/08/19 03:30 109 H 24 107/69 97 09/08/19 03:15 121 H 24 111/69 97 09/08/19 03:01 113 H 24 112/76 97 09/08/19 02:45 114 H 24 104/76 97 09/08/19 02:31 106 H 24 115/71 96 09/08/19 02:15 130 H 24 118/77 97 09/08/19 02:00 122 H 24 118/70 97 09/08/19 01:45 112 H 24 126/85 97 09/08/19 01:31 140 H 24 117/66 97 09/08/19 01:15 122 H 24 109/53 97 09/08/19 01:01 111 H 24 108/69 98 09/08/19 01:00 113 H 09/08/19 00:45 105 H 24 85/49 98 09/08/19 00:31 106 H 24 85/49 97 09/08/19 00:23 99.1 F 09/08/19 00:15 110 H 24 76/50 97 09/08/19 00:01 104 H 24 76/50 97 09/08/19 00:00 100.9 F H 115 H 23 95 09/07/19 23:45 114 H 24 105/68 97 09/07/19 23:40 106 H 101/76 97 09/07/19 23:30 112 H 24 101/76 97 09/07/19 23:15 112 H 24 102/77 97 09/07/19 23:00 110 H 24 100/69 96 09/07/19 22:51 113 H 24 109/66 97 20 22:45 113 H 24 109/66 97 09/07/19 22:30 113 H 24 101/73 95 09/07/19 22:15 112 H 24 109/66 93 09/07/19 22:00 118 H 25 H 106/75 94 07 21:45 113 H 24 108/67 94 20 21:40 110 H 2020 21:30 118 H 24 100/64 94 20 21:15 113 H 24 104/76 94 09/07/19 21:00 113 H 24 99/73 94 07/20/20 20:45 113 H 24 98/71 94 07/20/20 20:30 113 H 25 H 93/61 93 07/20/20 20:15 122 H 24 99/69 93 07/20/20 20:00 99.9 F H 120 H 115 H 27 H 99/63 94 07/20/20 19:57 112 H 100/56 94 07/20/20 19:45 109 H 25 H 100/56 93 07/20/20 19:30 116 H 25 H 104/69 94 07/20/20 19:15 112 H 24 97/69 94 07/20/20 19:00 117 H 24 100/71 94 07/20/20 18:45 114 H 24 107/70 95 0720/20 18:30 110 H 24 109/64 95 07/20/20 18:15 112 H 24 101/72 96 07/20/20 18:00 114 H 25 H 110/73 94 0720/20 17:45 116 H 24 106/77 94 0720/20 17:30 112 H 24 108/78 95 0720/20 17:15 114 H 24 98/76 95 0720/20 17:00 114 H 24 100/73 94 0720/20 16:45 116 H 24 107/61 94 20/20 16:31 127 H 24 99/71 94 0720/20 16:20 129 H 94/67 94 0720/20 16:15 129 H 25 H 94/67 94 07/20/20 16:01 120 H 23 86/71 94 07/20/20 16:00 101.6 F H 127 H 120 H 23 94 0720/20 15:45 122 H 24 87/63 94 07/20/20 15:30 111 H 24 87/63 95 07/20/20 15:15 116 H 24 81/60 95 07/20/20 15:00 114 H 24 86/62 95 0720/20 14:45 118 H 24 94/57 96 07/20/20 14:31 114 H 24 96/58 95 /20/20 14:15 116 H 24 97/56 96 07/20/20 14:00 116 H 24 102/62 96 07/20/20 13:45 116 H 24 85/52 96 07/20/20 13:31 117 H 23 87/58 96 09/07/19 13:15 115 H 24 85/55 95 09/07/19 13:00 114 H 23 92/57 96 09/07/19 12:45 115 H 24 92/54 95 09/07/19 12:42 124 H 85/58 95 09/07/19 12:30 114 H 24 85/58 96 09/07/19 12:15 115 H 24 95/49 96 09/07/19 12:01 113 H 23 85/54 95 09/07/19 12:00 99.7 F H 109 H 113 H 23 95 09/07/19 11:45 111 H 24 79/51 94 09/07/19 11:30 126 H 23 92/58 94 09/07/19 11:15 128 H 23 82/55 95 - Physical Examination General: Other (intubated on the vent) Cardiac: Positive: irregularly irregular
--- NOTE | 2019-09-08 11:21 | Progress Note ---
Hospitalist Physical - Constitutional Vitals: Temp Pulse Resp BP Pulse Ox 100.9 F H 121 H 24 129/101 95 09/08/19 04:24 09/08/19 09:00 09/08/19 08:45 09/08/19 08:45 09/08/19 08:45 General appearance: Present: mild distress, well-nourished, other (On ventilatory support) HEART Score - HEART Score Troponin: Troponin T < 0.010 ng/mL (0.00-0.029) 09/02/19 07:23 Results - Labs CBC & Chem 7: 09/07/19 04:34 09/07/19 04:34 Labs: Laboratory Last Values WBC 18.3 K/mm3 (4.5-11.0) H 09/07/19 04:34 RBC 5.63 M/mm3 (3.65-5.03) H 09/07/19 04:34 Hgb 14.5 gm/dl (11.8-15.2) 09/07/19 04:34 Hct 46.2 % (35.5-45.6) H D 09/07/19 04:34 MCV 82 fl (84-94) L 09/07/19 04:34 MCH 26 pg (28-32) L 09/07/19 04:34 MCHC 31 % (32-34) L 09/07/19 04:34 RDW 19.1 % (13.2-15.2) H 09/07/19 04:34 Plt Count 200 K/mm3 (140-440) 09/07/19 04:34 Lymph % (Auto) 8.3 % (13.4-35.0) L 09/03/19 04:25 Y[place]y % (Auto) 2.5 % (0.0-7.3) 09/03/19 04:25 Eos % (Auto) 0.0 % (0.0-4.3) 09/03/19 04:25 Baso % (Auto) 0.1 % (0.0-1.8) 09/03/19 04:25 Lymph # 0.4 K/mm3 (1.2-5.4) L 09/03/19 04:25 Yancey # 0.1 K/mm3 (0.0-0.8) 09/03/19 04:25 Eos # 0.0 K/mm3 (0.0-0.4) 09/03/19 04:25 Baso # 0.0 K/mm3 (0.0-0.1) 09/03/19 04:25 Add Manual Diff Complete 09/07/19 04:34 Total Counted 100 09/07/19 04:34 Seg Neutrophils % Oceanographer Geological 09/07/19 04:34 Seg Neuts % (Manual) 93.0 % (40.0-70.0) H 09/07/19 04:34 Band Neutrophils % 0 % 09/07/19 04:34 Lymphocytes % (Manual) 2.0 % (13.4-35.0) L 09/07/19 04:34 Reactive Lymphs % (Man) 0 % 09/07/19 04:34 Monocytes % (Manual) 5.0 % (0.0-7.3) 09/07/19 04:34 Eosinophils % (Manual) 0 % (0.0-4.3) 09/07/19 04:34 Basophils % (Manual) 0 % (0.0-1.8) 09/07/19 04:34 Metamyelocytes % 0 % 09/07/19 04:34 Myelocytes % 0 % 09/07/19 04:34 Promyelocytes % 0 % 09/07/19 04:34 Blast Cells % 0 % 09/07/19 04:34 Nucleated RBC % Not Reportable 09/07/19 04:34 Seg Neutrophils # 4.4 K/mm3 (1.8-7.7) 09/03/19 04:25 Seg Neutrophils # Man 17.0 K/mm3 (1.8-7.7) H 09/07/19 04:34 Band Neutrophils # 0.0 K/mm3 09/07/19 04:34 Lymphocytes # (Manual) 0.4 K/mm3 (1.2-5.4) L 09/07/19 04:34 Abs React Lymphs (Man) 0.0 K/mm3 09/07/19 04:34 Monocytes # (Manual) 0.9 K/mm3 (0.0-0.8) H 09/07/19 04:34 Eosinophils # (Manual) 0.0 K/mm3 (0.0-0.4) 09/07/19 04:34 Basophils # (Manual) 0.0 K/mm3 (0.0-0.1) 09/07/19 04:34 Metamyelocytes # 0.0 K/mm3 09/07/19 04:34 Myelocytes # 0.0 K/mm3 09/07/19 04:34 Promyelocytes # 0.0 K/mm3 09/07/19 04:34 Blast Cells # 0.0 K/mm3 09/07/19 04:34 WBC Morphology Not Reportable 09/07/19 04:34 Hypersegmented Neuts Not Reportable 09/07/19 04:34 Hyposegmented Neuts Not Reportable 09/07/19 04:34 Hypogranular Neuts Not Reportable 09/07/19 04:34 Smudge Cells Not Reportable 09/07/19 04:34 Toxic Granulation Not Reportable 09/07/19 04:34 Toxic Vacuolation Not Reportable 09/07/19 04:34 Dohle Bodies Not Reportable 09/07/19 04:34 Pelger-Huet Anomaly Not Reportable 09/07/19 04:34 Shirley Rods Not Reportable 09/07/19 04:34 Platelet Estimate Consistent w auto 09/07/19 04:34 Clumped Platelets Not Reportable 09/07/19 04:34 Plt Clumps, EDTA Not Reportable 09/07/19 04:34 Large Platelets Not Reportable 09/07/19 04:34 Giant Platelets Not Reportable 09/07/19 04:34 Platelet Satelliting Not Reportable 09/07/19 04:34 Plt Morphology Comment Not Reportable 09/07/19 04:34 RBC Morphology Not Reportable 09/07/19 04:34 Dimorphic RBCs Not Reportable 09/07/19 04:34 Polychromasia Few 09/07/19 04:34 Hypochromasia Not Reportable 09/07/19 04:34 Poikilocytosis 2+ 09/07/19 04:34 Anisocytosis Not Reportable 09/07/19 04:34 Microcytosis Not Reportable 09/07/19 04:34 Macrocytosis Not Reportable 09/07/19 04:34 Spherocytes Not Reportable 09/07/19 04:34 Pappenheimer Bodies Not Reportable 09/07/19 04:34 Sickle Cells Not Reportable 09/07/19 04:34 Target Cells 1+ 09/07/19 04:34 Tear Drop Cells Not Reportable 09/07/19 04:34 Ovalocytes 2+ 09/07/19 04:34 Helmet Cells Not Reportable 09/07/19 04:34 [place] Bodies Not Reportable 09/07/19 04:34 [place] Rings Not Reportable 09/07/19 04:34 [place] Cells 1+ 09/07/19 04:34 Bite Cells Not Reportable 09/07/19 04:34 Crenated Cell Not Reportable 09/07/19 04:34 Elliptocytes 2+ 09/07/19 04:34 Acanthocytes (Spur) Not Reportable 09/07/19 04:34 Rouleaux Not Reportable 09/07/19 04:34 Hemoglobin C Crystals Not Reportable 09/07/19 04:34 Schistocytes Few 09/07/19 04:34 Malaria parasites Not Reportable 09/07/19 04:34 Tera Bodies Not Reportable 09/07/19 04:34 Hem Pathologist Commnt No 09/07/19 04:34 PT 23.0 Sec. (12.2-14.9) H 09/02/19 07:23 INR 2.10 (0.87-1.13) H 09/02/19 07:23 APTT 33.0 Sec. (24.2-36.6) 09/02/19 07:23 D-Dimer 689.74 ng/mlDDU (0-234) H 09/02/19 Unknown ABG pH 7.428 pH Units (7.350-7.450) 09/08/19 04:30 ABG pCO2 46.0 mm Hg 09/08/19 04:30 ABG pO2 81.2 mm Hg (80.0-90.0) 09/08/19 04:30 ABG HCO3 29.7 mmol/L (20.0-26.0) H 09/08/19 04:30 ABG O2 Saturation 96.6 % (95.0-99.0) 09/08/19 04:30 ABG O2 Content 19.1 (0.0-44) 09/08/19 04:30 ABG Base Excess 4.5 mmol/L (-2.0-3.0) H 09/08/19 04:30 ABG Hemoglobin 14.4 gm/dl (14.0-18.0) 09/08/19 04:30 ABG Carboxyhemoglobin 2.0 % (0.0-5.0) 09/08/19 04:30 ABG Methemoglobin 0.6 % (0.0-1.5) 09/08/19 04:30 Oxyhemoglobin 94.1 % (95.0-99.0) L 09/08/19 04:30 FiO2 60 % 09/08/19 04:30 Sodium 149 mmol/L (137-145) H 09/07/19 04:34 Potassium 4.9 mmol/L (3.6-5.0) 09/07/19 04:34 Chloride 105.2 mmol/L (98-107) 09/07/19 04:34 Carbon Dioxide 27 mmol/L (22-30) 09/07/19 04:34 Anion Gap 22 mmol/L 09/07/19 04:34 BUN 83 mg/dL (9-20) H 09/07/19 04:34 Creatinine 4.4 mg/dL (0.8-1.5) H 09/07/19 04:34 Estimated GFR 16 ml/min 09/07/19 04:34 BUN/Creatinine Ratio 19 % 09/07/19 04:34 Glucose 174 mg/dL (75-100) H 09/07/19 04:34 POC Glucose 166 (70-105) H 09/07/19 16:34 Hemoglobin A1c 6.2 % (4-6) H 09/03/19 04:25 Lactic Acid 1.90 mmol/L (0.7-2.0) 09/02/19 09:33 Calcium 8.3 mg/dL (8.4-10.2) L 09/07/19 04:34 Phosphorus 6.10 mg/dL (2.5-4.5) H 09/07/19 04:34 Magnesium 2.20 mg/dL (1.7-2.3) 09/07/19 04:34 Ferritin 252.7 ng/mL (13.0-400.0) 09/02/19 09:33 Total Bilirubin 1.80 mg/dL (0.1-1.2) H 09/07/19 04:34 Direct Bilirubin 0.9 mg/dL (0-0.2) H 09/02/19 09:33 Indirect Bilirubin 2.1 mg/dL 09/02/19 09:33 AST 712 units/L (5-40) H 09/07/19 04:34 ALT 1183 units/L (7-56) H 09/07/19 04:34 Alkaline Phosphatase 141 units/L (35-129) H 09/07/19 04:34 Lactate Dehydrogenase 252 units/L (91-180) H 09/02/19 09:33 Troponin T < 0.010 ng/mL (0.00-0.029) 09/02/19 07:23 C-Reactive Protein 3.80 mg/dL (0.00-1.30) H 09/02/19 09:33 NT-Pro-B Natriuret Pep 41217 pg/mL (0-900) H 09/02/19 07:23 Total Protein 5.8 g/dL (6.3-8.2) L 09/07/19 04:34 Albumin 1.9 g/dL (3.9-5) L 09/07/19 04:34 Albumin/Globulin Ratio 0.5 % 09/07/19 04:34 Procalcitonin < 0.05 ng/mL (<0.15) 09/02/19 09:33 TSH 2.670 mlU/mL (0.270-4.200) 09/04/19 11:14 Free T4 1.08 ng/dL (0.76-1.46) 09/04/19 11:14 Urine Opiates Screen Presumptive negative 09/06/19 03:20 Urine Methadone Screen Presumptive negative 09/06/19 03:20 Ur Barbiturates Screen Presumptive negative 09/06/19 03:20 Ur Phencyclidine Scrn Presumptive negative 09/06/19 03:20 Ur Amphetamines Screen Presumptive negative 09/06/19 03:20 U Benzodiazepines Scrn Presumptive negative 09/06/19 03:20 Urine Cocaine Screen Presumptive negative 09/06/19 03:20 U Marijuana (THC) Screen Presumptive negative 09/06/19 03:20 Drugs of Abuse Note Disclamer 09/06/19 03:20 Coronavirus (PCR) Negative (Negative) 09/06/19 Unknown Microbiology: Microbiology 09/05/19 Unknown Tracheal Aspirate Sputum Culture - Final 09/07/19 18:30 Urine,[place] Urine Culture - Preliminary NO GROWTH AFTER 24 HOURS 09/07/19 18:53 Peripheral/Venous Blood Culture - Preliminary Culture in Progress 09/07/19 18:53 Peripheral/Venous Blood Culture - Preliminary Culture in Progress 09/02/19 Unknown Peripheral/Venous Blood Culture - Final NO GROWTH AFTER 5 DAYS 09/02/19 Unknown Peripheral/Venous Blood Culture - Final NO GROWTH AFTER 5 DAYS - Diagnostic Impressions Diagnostic Impressions: Echocardiogram 09/03/19 00:18 Transthoracic Echocardiogram Indication: Dyspnea BP: 102/57 HR: 98 Conclusions *Severe, 4-chamber dilated cardiomyopathy. *Global left ventricular systolic function is severely decreased. *The estimated ejection fraction is Less Than 15-20%. *Mild concentric left ventricular hypertrophy is observed. *There is mild aortic regurgitation. *There is mild to moderate mitral regurgitation. *There is at least moderate tricuspid regurgitation. *There is moderately-severe pulmonary hypertension. *The right ventricular systolic pressure is calculated at 61 mmHg. *A pacemaker wire is visualized in the right jeart chambers. Findings Left Ventricle: The left ventricular chamber size is severely dilated. Mild concentric left ventricular hypertrophy is observed. Global left ventricular systolic function is severely decreased. The estimated ejection fraction is 15-20%. Left Atrium: The left atrium is severely dilated. Right Ventricle: The right ventricle is moderate to severely dilated. The right ventricular global systolic function is severely reduced. A pacemaker wire is visualized in the right ventricle. Right Atrium: The right atrium is moderately dilated. A pacemaker wire is visualized in the right atrium. Aortic Valve: The aortic valve is trileaflet. The aortic valve leaflets are mildly thickened. There is mild aortic regurgitation. There is no evidence of aortic stenosis. The mean gradient of the aortic valve is 1.87 mmHg. Mitral Valve: The mitral valve leaflets are mildly thickened. There is mild to moderate mitral regurgitation. There is no evidence of mitral stenosis. Tricuspid Valve: There is moderate tricuspid regurgitation. The right ventricular systolic pressure is calculated at 61 mmHg. There is evidence of severe pulmonary hypertension. Pulmonic Valve: There is mild pulmonic regurgitation. Pericardium: There is no pericardial effusion. Aorta: There is no dilatation of the ascending aorta. There is no dilatation of the aortic root. Venous: The inferior vena cava is dilated. Measurements Chambers 2D Name Value Normal Range IVSd (2D) 0.83 cm (0.6 - 1.1) LVPWd (2D) 0.89 cm (0.6 - 1.1) LVIDd (2D) 6.97 cm (3.7 - 5.6) LVIDs (2D) 6.29 cm (2 - 3.8) LV FS (2D) 9.75 % - EF Teichholz (2D) 20.75 % - Ao root diameter (2D) 3.18 cm (2 - 3.7) Volumes/Mass Name Value Normal Range LA ESV SP 4CH (A/L) 102.95 ml - LA ESV SP 2CH (A/L) 148.69 ml - LA ESV BP (A/L) 128.54 ml - LA ESV BP (A/L) index 69.86 ml/m2 - LA ESV SP 4CH (MOD) 97.53 ml - LA ESV SP 2CH (MOD) 134.72 ml - LA ESV BP (MOD) 118.72 ml - LA ESV BP (MOD) index 64.52 ml/m2 - LV EDV SP 4CH (MOD) 265.95 ml - LV ESV SP 4CH (MOD) 198.9 ml - EF SP 4CH (MOD) 25.21 % - LV EDV SP 2CH (MOD) 240.8 ml - LV ESV SP 2CH (MOD) 201.36 ml - EF SP 2CH (MOD) 16.38 % - LV EDV BP 254.43 ml - LV ESV BP 204.99 ml - BP EF (MOD) 19.43 % - Diastolic/Systolic Function Name Value Normal Range MV E-wave Vmax 0.86 m/sec - MV deceleration time 172.86 msec - MV A-wave Vmax 0.44 m/sec - MV E:A ratio 1.94 ratio - Aortic Valve Name Value Normal Range AV Vmax 0.87 m/sec - AV VTI 17.36 cm - AV peak gradient 3.03 mmHg - AV mean gradient 1.87 mmHg - LVOT diameter 2.15 cm - LVOT Vmax 0.79 m/sec - LVOT VTI 10.29 cm - LVOT peak gradient 2.53 mmHg - LVOT mean gradient 1.07 mmHg - SV LVOT 37.26 ml - CHARLES (continuity Vmax) 3.31 cm2 - CHARLES (continuity VTI) 2.15 cm2 - AR PHT 930.2 msec - AR peak gradient 33.96 mmHg - Ascending Ao 3.39 cm - Mitral Valve Name Value Normal Range MV Vmax 0.95 m/sec - MV VTI 20.87 cm - MV peak gradient 3.65 mmHg - MV mean gradient 1.09 mmHg - MV PHT 58.55 msec - MVA (PHT) 3.76 cm2 - MVA (continuity VTI) 1.79 cm2 - Tricuspid Valve Name Value Normal Range TR Vmax 3.65 m/sec - TR peak gradient 53 mmHg - RAP 8 mmHg - RVSP 61 mmHg - IVC diameter 2.47 cm (1.2 - 2.3) Pulmonic Valve/Qp:Qs Name Value Normal Range PV Vmax 0.77 m/sec - PV VTI 15.61 cm - PV peak gradient 2.38 mmHg - PV mean gradient 1.17 mmHg - MI end-diastolic Vmax 1.4 m/sec - RVOT Vmax 0.56 m/sec - RVOT VTI 9.24 cm - RVOT peak gradient 1.27 mmHg - Estevez/IV: Voiding Method Indwelling Catheter IV Catheter Type [Right Triple Lumen Cath Femoral] IV Catheter Type [Right Hand] INT / Saline Lock IV Catheter Type [Right Peripheral IV Forearm] IV Catheter Type [Left Peripheral IV Antecubital] Active Medications - Current Medications Current Medications: Generic Name Dose Route Start Last Admin Trade Name Freq PRN Reason Stop Dose Admin Acetaminophen 650 mg 09/03/19 00:06 09/07/19 21:26 Tylenol PO 650 mg Q4H PRN Administration Pain MILD(1-3)/Fever >100.5/BLANKENSHIP Amiodarone HCl 200 mg 09/05/19 10:00 09/08/19 09:19 Cordarone PO 200 mg BID BANDAR Administration Apixaban 5 mg 09/04/19 10:00 09/08/19 09:19 Eliquis PO 5 mg DAILY BANDAR Administration Protocol Famotidine 20 mg 09/06/19 11:00 09/08/19 09:19 Pepcid IV 20 mg DAILY BANDAR Administration Finasteride 5 mg 09/04/19 10:00 09/08/19 09:19 Proscar PO 5 mg DAILY BANDAR Administration Hydrocortisone Sodium Succinate 100 mg 09/06/19 14:00 09/08/19 06:16 Solu-Cortef IV 100 mg Q8HR BANDAR Administration Norepinephrine 8 mg/ Sodium 250 mls @ 3.75 mls/hr 09/04/19 23:00 09/08/19 10:30 Chloride IV 24 mcg/min TITR BANDAR 45 mls/hr Administration Protocol 2 MCG/MIN Epinephrine 16 mg/ Sodium 250 mls @ 1.875 mls/hr 09/04/19 23:45 09/08/19 11:07 Chloride IV 1 mcg/min TITR BANDAR 0.938 mls/hr Titration Protocol 2 MCG/MIN Dopamine HCl/Dextrose 800 mg in 250 mls @ 2.739 mls/hr 09/05/19 01:00 09/06/19 22:43 Intropin Drip 800 Mg/D5w 250 Ml IV 0 mcg/kg/min TITR BANDAR 0 mls/hr Titration Protocol 2 MCG/KG/MIN Phenylephrine HCl 100 mg/ 100 mls @ 3 mls/hr 09/06/19 23:00 09/08/19 04:26 Sodium Chloride IV 100 mcg/min TITR BANADR 6 mls/hr Administration Protocol 50 MCG/MIN Insulin Human Lispro 0 unit 09/07/19 12:00 09/08/19 06:22 Humalog SUB-Q 3 unit Q6HR BANDAR Administration Protocol Ondansetron HCl 4 mg 09/03/19 00:06 09/04/19 13:05 Zofran IV 4 mg Q8H PRN Administration Nausea And Vomiting Sodium Chloride 10 ml 09/03/19 10:00 09/08/19 09:20 Sodium Chloride Flush Syringe 10 Ml IV 10 ml BID BANDAR Administration Sodium Chloride 10 ml 09/03/19 00:06 Sodium Chloride Flush Syringe 10 Ml IV PRN PRN LINE FLUSH
--- NOTE | 2019-09-08 11:27 | Progress Note ---
Assessment and Plan 69 y/o male with heart failure now with multiple cardiac arrests, acute respiratory failure, renal failure, shock liver and severe metabolic acidosis with post arrest encephalopathy 09/08/2019: Explained to this daughter that our recommendation is hospice. Daughter [place] the patient has already asked for inpatient hospice referral. We will continue all supportive measures. until transition but appears that family is on board with hospice therapy which is most reasonable. 1. CV-Cards following. per their note poor prognosis. on amio and following. Currently on 3 pressors to maintain adequate BP's if possible. Unable to diurese at this time. Asked nursing to start weaning the epi first. 2. Resp-failure secondary to cardiac arrest. Ventilated, not sedated. Very Low PF ratio. CXR is unchanged. RT was able to increase PEEP 10 without compr omising BP per report. now down to 60%. Will start to wean PEEP once FiO2 around 40-45%. 3. Renal-Worsening renal failure, non-oliguric now but still worsening metabolic acidosis. has responded to bicarb drip. Will continue. Follow up renal recs but needs HD. K responded to kayexalete therapy. Renal consulted on yesterday. Not a candidate however given pressor requirement, would crash on HD. CRRT not available here. 4. GI-shock liver with elevated transminases from from hypotension. Suggest checking INR to eval synthetic function. Unable to feel secondary to pressor requirement 5. Needs repeat chemistry, agree with q6 hour checks 6. continue steroids at stress doses 7. neurology consult placed for anoxia, persistent vegetative state 8. Would discontinue all pain meds or any other sedative medications. Given depressed mental state OVerall prognosis is poor. Will attempt to speak with family about medical decisions, but await neurology evaluation first. CCT 31 minutes. Subjective Date of service: 09/08/19 Principal diagnosis: Cardiac arrest Interval history: Discussion at bedside with daughter who just flew in yesterday from [place]. Explained that patient was doing very poorly and that he has multisystem organ failure ([employer], CV, Pulm, Renal). Patient remains unresponsive on vent and not breathing over. Still on pressors including epi to maintain adequate blood pressure. No urine output. Objective Vital Signs - 12hr 07/20/20 07/20/20 07/20/20 23:30 23:40 23:45 Temperature Pulse Rate 112 H 106 H 114 H Pulse Rate [ From Monitor] Respiratory 24 24 Rate Blood Pressure 101/76 101/76 105/68 O2 Sat by Pulse 97 97 97 Oximetry 09/08/19 09/08/19 09/08/19 00:00 00:01 00:15 Temperature 100.9 F H Pulse Rate 104 H 110 H Pulse Rate [ 115 H From Monitor] Respiratory 23 24 24 Rate Blood Pressure 76/50 76/50 O2 Sat by Pulse 95 97 97 Oximetry 09/08/19 09/08/19 09/08/19 00:23 00:31 00:45 Temperature 99.1 F Pulse Rate 106 H 105 H Pulse Rate [ From Monitor] Respiratory 24 24 Rate Blood Pressure 85/49 85/49 O2 Sat by Pulse 97 98 Oximetry 09/08/19 09/08/19 09/08/19 01:00 01:01 01:15 Temperature Pulse Rate 113 H 111 H 122 H Pulse Rate [ From Monitor] Respiratory 24 24 Rate Blood Pressure 108/69 109/53 O2 Sat by Pulse 98 97 Oximetry 09/08/19 09/08/19 09/08/19 01:31 01:45 02:00 Temperature Pulse Rate 140 H 112 H 122 H Pulse Rate [ From Monitor] Respiratory 24 24 24 Rate Blood Pressure 117/66 126/85 118/70 O2 Sat by Pulse 97 97 97 Oximetry 09/08/19 09/08/19 09/08/19 02:15 02:31 02:45 Temperature Pulse Rate 130 H 106 H 114 H Pulse Rate [ From Monitor] Respiratory 24 24 24 Rate Blood Pressure 118/77 115/71 104/76 O2 Sat by Pulse 97 96 97 Oximetry 09/08/19 09/08/19 09/08/19 03:01 03:15 03:30 Temperature Pulse Rate 113 H 121 H 109 H Pulse Rate [ From Monitor] Respiratory 24 24 24 Rate Blood Pressure 112/76 111/69 107/69 O2 Sat by Pulse 97 97 97 Oximetry 09/08/19 09/08/19 09/08/19 03:45 04:00 04:01 Temperature 99.6 F Pulse Rate 115 H 109 H Pulse Rate [ 115 H From Monitor] Respiratory 24 23 24 Rate Blood Pressure 106/76 104/70 O2 Sat by Pulse 97 95 97 Oximetry 09/08/19 09/08/19 09/08/19 04:15 04:24 04:30 Temperature 100.9 F H Pulse Rate 108 H 117 H Pulse Rate [ From Monitor] Respiratory 24 24 Rate Blood Pressure 105/85 106/74 O2 Sat by Pulse 97 97 Oximetry 09/08/19 09/08/19 09/08/19 04:45 05:00 05:01 Temperature Pulse Rate 108 H 123 H 106 H Pulse Rate [ From Monitor] Respiratory 24 24 Rate Blood Pressure 105/61 96/69 O2 Sat by Pulse 97 97 Oximetry 09/08/19 09/08/19 09/08/19 05:15 05:30 05:45 Temperature Pulse Rate 127 H 111 H 125 H Pulse Rate [ From Monitor] Respiratory 24 24 24 Rate Blood Pressure 96/69 88/61 88/61 O2 Sat by Pulse 97 97 97 Oximetry 09/08/19 09/08/19 09/08/19 06:01 06:15 06:31 Temperature Pulse Rate 125 H 116 H 118 H Pulse Rate [ From Monitor] Respiratory 24 24 24 Rate Blood Pressure 102/67 104/61 110/67 O2 Sat by Pulse 97 97 97 Oximetry 09/08/19 09/08/19 09/08/19 06:45 07:00 07:15 Temperature Pulse Rate 112 H 110 H 118 H Pulse Rate [ From Monitor] Respiratory 24 24 24 Rate Blood Pressure 113/66 113/74 119/62 O2 Sat by Pulse 97 97 96 Oximetry 09/08/19 09/08/19 09/08/19 07:30 07:45 08:00 Temperature Pulse Rate 122 H 113 H Pulse Rate [ 114 H From Monitor] Respiratory 24 24 24 Rate Blood Pressure 110/70 108/69 O2 Sat by Pulse 97 96 95 Oximetry 09/08/19 09/08/19 09/08/19 08:01 08:03 08:15 Temperature Pulse Rate 106 H 109 H 114 H Pulse Rate [ From Monitor] Respiratory 24 24 Rate Blood Pressure 115/79 115/79 114/74 O2 Sat by Pulse 96 96 95 Oximetry 09/08/19 09/08/19 09/08/19 08:30 08:45 09:00 Temperature Pulse Rate 120 H 112 H 121 H Pulse Rate [ From Monitor] Respiratory 24 24 Rate Blood Pressure 119/84 129/101 O2 Sat by Pulse 94 95 Oximetry CBC and BMP: 09/07/19 04:34 09/07/19 04:34 ABG, PT/INR, D-dimer: ABG ABG pH 7.428 pH Units (7.350-7.450) 09/08/19 04:30 ABG pCO2 46.0 mm Hg 09/08/19 04:30 ABG pO2 81.2 mm Hg (80.0-90.0) 09/08/19 04:30 ABG O2 Saturation 96.6 % (95.0-99.0) 09/08/19 04:30 PT/INR, D-dimer PT 23.0 Sec. (12.2-14.9) H 09/02/19 07:23 INR 2.10 (0.87-1.13) H 09/02/19 07:23 D-Dimer 689.74 ng/mlDDU (0-234) H 09/02/19 Unknown Abnormal lab findings: Abnormal Labs 09/02/19 09/02/19 09/02/19 05:30 07:23 07:23 WBC RBC Hgb 10.7 L Hct 33.8 L MCV 82 L MCH 26 L MCHC RDW 18.1 H Lymph % (Auto) 9.3 L Lymph # 0.5 L Seg Neutrophils % 83.1 H Seg Neuts % (Manual) Lymphocytes % (Manual) Seg Neutrophils # Man Lymphocytes # (Manual) Monocytes # (Manual) PT INR D-Dimer ABG pH ABG pO2 ABG HCO3 19.2 L ABG O2 Saturation ABG Base Excess -4.4 L ABG Hemoglobin 11.3 L Oxyhemoglobin 94.5 L Sodium Potassium Carbon Dioxide 21 L BUN 25 H Creatinine Glucose 119 H POC Glucose Hemoglobin A1c Calcium Phosphorus Total Bilirubin Direct Bilirubin AST ALT Alkaline Phosphatase Lactate Dehydrogenase C-Reactive Protein NT-Pro-B Natriuret Pep Total Protein Albumin 09/02/19 09/02/19 09/02/19 07:23 07:23 09:33 WBC RBC Hgb Hct MCV MCH MCHC RDW Lymph % (Auto) Lymph # Seg Neutrophils % Seg Neuts % (Manual) Lymphocytes % (Manual) Seg Neutrophils # Man Lymphocytes # (Manual) Monocytes # (Manual) PT 23.0 H INR 2.10 H D-Dimer ABG pH ABG pO2 ABG HCO3 ABG O2 Saturation ABG Base Excess ABG Hemoglobin Oxyhemoglobin Sodium Potassium Carbon Dioxide BUN Creatinine Glucose 123 H POC Glucose Hemoglobin A1c Calcium Phosphorus Total Bilirubin 3.00 H Direct Bilirubin 0.9 H AST 43 H ALT Alkaline Phosphatase Lactate Dehydrogenase 252 H C-Reactive Protein 3.80 H NT-Pro-B Natriuret Pep 43875 H Total Protein Albumin 3.0 L 09/02/19 09/03/19 09/03/19 Unknown 00:47 04:25 WBC RBC Hgb 11.2 L Hct MCV 83 L MCH 26 L MCHC 31 L RDW 17.9 H Lymph % (Auto) 8.3 L Lymph # 0.4 L Seg Neutrophils % 89.1 H Seg Neuts % (Manual) Lymphocytes % (Manual) Seg Neutrophils # Man Lymphocytes # (Manual) Monocytes # (Manual) PT INR D-Dimer 689.74 H ABG pH ABG pO2 ABG HCO3 ABG O2 Saturation ABG Base Excess ABG Hemoglobin Oxyhemoglobin Sodium 135 L Potassium Carbon Dioxide 20 L BUN 27 H Creatinine Glucose 157 H POC Glucose Hemoglobin A1c Calcium Phosphorus Total Bilirubin 1.70 H Direct Bilirubin AST ALT Alkaline Phosphatase Lactate Dehydrogenase C-Reactive Protein NT-Pro-B Natriuret Pep Total Protein Albumin 2.5 L 09/03/19 09/03/19 09/03/19 04:25 09:46 16:15 WBC RBC Hgb Hct MCV MCH MCHC RDW Lymph % (Auto) Lymph # Seg Neutrophils % Seg Neuts % (Manual) Lymphocytes % (Manual) Seg Neutrophils # Man Lymphocytes # (Manual) Monocytes # (Manual) PT INR D-Dimer ABG pH ABG pO2 ABG HCO3 ABG O2 Saturation ABG Base Excess ABG Hemoglobin Oxyhemoglobin Sodium Potassium Carbon Dioxide BUN Creatinine Glucose POC Glucose 125 H 173 H Hemoglobin A1c 6.2 H Calcium Phosphorus Total Bilirubin Direct Bilirubin AST ALT Alkaline Phosphatase Lactate Dehydrogenase C-Reactive Protein NT-Pro-B Natriuret Pep Total Protein Albumin 09/03/19 09/04/19 09/04/19 22:17 03:26 03:26 WBC 11.3 H RBC Hgb 11.3 L Hct MCV 82 L MCH 26 L MCHC RDW 18.4 H Lymph % (Auto) Lymph # Seg Neutrophils % Seg Neuts % (Manual) 90.0 H Lymphocytes % (Manual) 4.0 L Seg Neutrophils # Man 10.2 H Lymphocytes # (Manual) 0.5 L Monocytes # (Manual) PT INR D-Dimer ABG pH ABG pO2 ABG HCO3 ABG O2 Saturation ABG Base Excess ABG Hemoglobin Oxyhemoglobin Sodium Potassium Carbon Dioxide 21 L BUN 38 H Creatinine Glucose 126 H POC Glucose 238 H Hemoglobin A1c Calcium Phosphorus Total Bilirubin Direct Bilirubin AST ALT Alkaline Phosphatase Lactate Dehydrogenase C-Reactive Protein NT-Pro-B Natriuret Pep Total Protein Albumin 09/04/19 09/04/19 09/04/19 11:08 15:42 21:38 WBC RBC Hgb Hct MCV MCH MCHC RDW Lymph % (Auto) Lymph # Seg Neutrophils % Seg Neuts % (Manual) Lymphocytes % (Manual) Seg Neutrophils # Man Lymphocytes # (Manual) Monocytes # (Manual) PT INR D-Dimer ABG pH 7.345 L 6.947 L* 7.030 L* ABG pO2 106.7 H 31.4 L* 91.1 H ABG HCO3 18.2 L 16.9 L 14.3 L ABG O2 Saturation 26.3 L 92.0 L ABG Base Excess -6.7 L -15.8 L -16.3 L ABG Hemoglobin 12.0 L 11.6 L 11.9 L Oxyhemoglobin 25.6 L 89.5 L Sodium Potassium Carbon Dioxide BUN Creatinine Glucose POC Glucose Hemoglobin A1c Calcium Phosphorus Total Bilirubin Direct Bilirubin AST ALT Alkaline Phosphatase Lactate Dehydrogenase C-Reactive Protein NT-Pro-B Natriuret Pep Total Protein Albumin 09/04/19 09/05/19 09/05/19 23:46 00:39 04:02 WBC RBC Hgb Hct MCV MCH MCHC RDW Lymph % (Auto) Lymph # Seg Neutrophils % Seg Neuts % (Manual) Lymphocytes % (Manual) Seg Neutrophils # Man Lymphocytes # (Manual) Monocytes # (Manual) PT INR D-Dimer ABG pH ABG pO2 ABG HCO3 ABG O2 Saturation ABG Base Excess ABG Hemoglobin Oxyhemoglobin Sodium Potassium 5.7 H Carbon Dioxide 19 L BUN 53 H Creatinine 2.6 H D Glucose 109 H POC Glucose < 40 L 111 H Hemoglobin A1c Calcium 8.3 L D Phosphorus Total Bilirubin 2.40 H Direct Bilirubin AST 2750 H ALT 1466 H Alkaline Phosphatase 134 H Lactate Dehydrogenase C-Reactive Protein NT-Pro-B Natriuret Pep Total Protein Albumin 2.7 L 09/05/19 09/05/19 09/05/19 05:45 08:58 18:55 WBC RBC Hgb Hct MCV MCH MCHC RDW Lymph % (Auto) Lymph # Seg Neutrophils % Seg Neuts % (Manual) Lymphocytes % (Manual) Seg Neutrophils # Man Lymphocytes # (Manual) Monocytes # (Manual) PT INR D-Dimer ABG pH 7.154 L* ABG pO2 79.3 L ABG HCO3 ABG O2 Saturation ABG Base Excess -8.3 L ABG Hemoglobin 11.7 L Oxyhemoglobin 92.7 L Sodium Potassium Carbon Dioxide BUN Creatinine Glucose POC Glucose 123 H 181 H Hemoglobin A1c Calcium Phosphorus Total Bilirubin Direct Bilirubin AST ALT Alkaline Phosphatase Lactate Dehydrogenase C-Reactive Protein NT-Pro-B Natriuret Pep Total Protein Albumin 09/06/19 09/06/19 09/06/19 02:18 04:00 04:00 WBC 14.7 H RBC Hgb Hct MCV 83 L MCH 26 L MCHC 31 L RDW 18.7 H Lymph % (Auto) Lymph # Seg Neutrophils % Seg Neuts % (Manual) 91.0 H Lymphocytes % (Manual) 3.0 L Seg Neutrophils # Man 13.4 H Lymphocytes # (Manual) 0.4 L Monocytes # (Manual) 0.9 H PT INR D-Dimer ABG pH ABG pO2 ABG HCO3 ABG O2 Saturation ABG Base Excess ABG Hemoglobin Oxyhemoglobin Sodium Potassium Carbon Dioxide BUN 74 H Creatinine 3.7 H Glucose 153 H POC Glucose 165 H Hemoglobin A1c Calcium 7.6 L Phosphorus 5.80 H Total Bilirubin 1.70 H Direct Bilirubin AST 1929 H ALT 1665 H Alkaline Phosphatase 135 H Lactate Dehydrogenase C-Reactive Protein NT-Pro-B Natriuret Pep Total Protein 6.0 L Albumin 2.1 L 09/06/19 09/06/19 09/06/19 04:36 10:58 16:03 WBC RBC Hgb Hct MCV MCH MCHC RDW Lymph % (Auto) Lymph # Seg Neutrophils % Seg Neuts % (Manual) Lymphocytes % (Manual) Seg Neutrophils # Man Lymphocytes # (Manual) Monocytes # (Manual) PT INR D-Dimer ABG pH 7.306 L ABG pO2 ABG HCO3 ABG O2 Saturation ABG Base Excess -3.7 L ABG Hemoglobin 12.8 L Oxyhemoglobin 94.6 L Sodium Potassium Carbon Dioxide BUN Creatinine Glucose POC Glucose 144 H 109 H Hemoglobin A1c Calcium Phosphorus Total Bilirubin Direct Bilirubin AST ALT Alkaline Phosphatase Lactate Dehydrogenase C-Reactive Protein NT-Pro-B Natriuret Pep Total Protein Albumin 09/07/19 09/07/19 09/07/19 03:47 04:34 04:34 WBC 18.3 H RBC 5.63 H Hgb Hct 46.2 H D MCV 82 L MCH 26 L MCHC 31 L RDW 19.1 H Lymph % (Auto) Lymph # Seg Neutrophils % Seg Neuts % (Manual) 93.0 H Lymphocytes % (Manual) 2.0 L Seg Neutrophils # Man 17.0 H Lymphocytes # (Manual) 0.4 L Monocytes # (Manual) 0.9 H PT INR D-Dimer ABG pH ABG pO2 107.0 H ABG HCO3 28.6 H ABG O2 Saturation ABG Base Excess ABG Hemoglobin Oxyhemoglobin Sodium 149 H Potassium Carbon Dioxide BUN 83 H Creatinine 4.4 H Glucose 174 H POC Glucose Hemoglobin A1c Calcium 8.3 L Phosphorus 6.10 H Total Bilirubin 1.80 H Direct Bilirubin AST 712 H ALT 1183 H Alkaline Phosphatase 141 H Lactate Dehydrogenase C-Reactive Protein NT-Pro-B Natriuret Pep Total Protein 5.8 L Albumin 1.9 L 09/07/19 09/07/19 09/07/19 08:38 12:33 16:34 WBC RBC Hgb Hct MCV MCH MCHC RDW Lymph % (Auto) Lymph # Seg Neutrophils % Seg Neuts % (Manual) Lymphocytes % (Manual) Seg Neutrophils # Man Lymphocytes # (Manual) Monocytes # (Manual) PT INR D-Dimer ABG pH ABG pO2 ABG HCO3 ABG O2 Saturation ABG Base Excess ABG Hemoglobin Oxyhemoglobin Sodium Potassium Carbon Dioxide BUN Creatinine Glucose POC Glucose 166 H 178 H 166 H Hemoglobin A1c Calcium Phosphorus Total Bilirubin Direct Bilirubin AST ALT Alkaline Phosphatase Lactate Dehydrogenase C-Reactive Protein NT-Pro-B Natriuret Pep Total Protein Albumin 09/08/19 04:30 WBC RBC Hgb Hct MCV MCH MCHC RDW Lymph % (Auto) Lymph # Seg Neutrophils % Seg Neuts % (Manual) Lymphocytes % (Manual) Seg Neutrophils # Man Lymphocytes # (Manual) Monocytes # (Manual) PT INR D-Dimer ABG pH ABG pO2 ABG HCO3 29.7 H ABG O2 Saturation ABG Base Excess 4.5 H ABG Hemoglobin Oxyhemoglobin 94.1 L Sodium Potassium Carbon Dioxide BUN Creatinine Glucose POC Glucose Hemoglobin A1c Calcium Phosphorus Total Bilirubin Direct Bilirubin AST ALT Alkaline Phosphatase Lactate Dehydrogenase C-Reactive Protein NT-Pro-B Natriuret Pep Total Protein Albumin
--- NOTE | 2019-09-08 12:30 | Consultation ---
History of Present Illness Consult date: 09/08/19 Reason for Consult: Unresponsivness History of present illness: Patient is unresponsive, on the vent, on 2 pressors, currently in sinus rhythm with intermittent, short bursts of nonsustained ventricular tachycardia. We will continue supportive management, overall prognosis is poor. Original Note: Acute on chronic CHF Dilated cardiomyopathy, LVEF 10-15% - patient follows with Dr Prince Livingston at [place] Cardiac arrest Patient found pulseless and unresponsive while in the ED Multiple AICD shocks earlier for sustained VT On po amiodarone Cardiogenic shock On multiple pressors Acute renal failure Nuforce AICD Paroxysmal atrial fibrillation End-stage COPD History of cocaine abuse UDS negative this admission Supportive cardiac care Date of service: 09/08/19 Principal diagnosis: Cardiac arrest Interval history: Patient remains unresponsive on the vent and on multiple pressors for support. Objective Vital Signs Temp Pulse Pulse Resp BP Pulse Ox 09/07/19 10:00 130 H 24 108/78 96 09/07/19 09:45 130 H 24 106/80 97 09/07/19 09:35 120 H 103/76 97 09/07/19 09:30 131 H 24 103/76 97 09/07/19 09:15 127 H 24 97/70 96 09/07/19 09:00 129 H 24 94/63 97 09/07/19 08:45 113 H 24 100/65 96 09/07/19 08:30 112 H 24 90/67 95 09/07/19 08:15 116 H 24 99/70 96 09/07/19 08:01 130 H 25 H 101/75 95 09/07/19 08:00 99.2 F 09/07/19 07:45 132 H 24 101/75 96 09/07/19 07:30 127 H 24 93/60 96 09/07/19 07:15 131 H 24 103/67 96 09/07/19 07:00 133 H 24 98/69 96 09/07/19 06:45 126 H 24 102/72 95 09/07/19 06:30 116 H 24 99/71 96 09/07/19 06:15 116 H 24 102/76 96 09/07/19 06:00 125 H 24 102/76 96 09/07/19 05:45 106 H 24 109/67 96 09/07/19 05:30 112 H 24 93/70 97 09/07/19 05:15 113 H 24 95/65 98 09/07/19 05:00 111 H 24 85/59 96 09/07/19 04:45 135 H 24 89/61 98 09/07/19 04:30 133 H 24 105/66 97 09/07/19 04:15 130 H 24 95/58 97 09/07/19 04:01 112 H 24 95/48 98 09/07/19 04:00 101 H 24 95 09/07/19 03:45 111 H 24 90/60 98 09/07/19 03:31 98.9 F 09/07/19 03:30 111 H 24 82/61 97 09/07/19 03:15 112 H 24 87/56 97 09/07/19 03:00 114 H 24 92/68 97 09/07/19 02:45 109 H 24 87/52 97 09/07/19 02:30 111 H 24 94/55 97 09/07/19 02:15 111 H 24 93/57 97 09/07/19 02:00 110 H 25 H 86/65 97 09/07/19 01:45 111 H 8 L 86/63 95 09/07/19 01:30 110 H 7 L 95/56 95 09/07/19 01:15 107 H 13 88/55 95 09/07/19 01:00 123 H 8 L 90/61 95 09/07/19 00:45 115 H 10 L 97/56 95 09/07/19 00:30 122 H 11 L 86/65 95 09/07/19 00:15 123 H 17 91/67 96 09/07/19 00:01 121 H 12 81/59 95 09/07/19 00:00 120 H 120 H 13 81/59 96 09/06/19 23:58 98.5 F 09/06/19 23:51 107 H 81/59 95 09/06/19 23:45 111 H 14 89/68 95 09/06/19 23:31 107 H 16 89/68 96 09/06/19 23:15 106 H 25 H 76/42 95 09/06/19 23:00 107 H 24 75/49 95 09/06/19 22:45 109 H 25 H 84/33 95 09/06/19 22:30 113 H 24 122/71 94 07/19/20 22:15 127 H 25 H 110/86 96 07/19/20 22:00 115 H 24 106/79 95 /19/20 21:45 110 H 24 72/53 97 07/19/20 21:30 105 H 24 72/53 95 07/19/20 21:15 102 H 24 78/53 95 /19/20 21:01 101 H 22 80/54 96 /19/20 20:45 101 H 24 66/47 96 /19/20 20:30 101 H 24 77/56 96 19/20 20:25 99 H 71/47 96 /19/20 20:15 102 H 23 79/54 96 /19/20 20:01 100 H 24 70/37 96 07/19/20 20:00 101 H 24 95 19/20 19:49 98.3 F 071920 19:45 100 H 20 83/59 95 /19/20 19:30 101 H 24 92/64 96 /19/20 19:15 103 H 24 84/62 96 20 19:00 99 H 24 95/62 96 19/20 18:45 101 H 24 86/59 95 /19/20 18:30 97 H 24 96 19/20 18:29 98 H 24 95 19/20 17:15 100 H 24 96 19/20 16:30 94 H 24 68/42 95 /19/20 16:28 93 H 60/37 95 /19/20 16:15 95 H 24 84/58 94 /19/20 16:00 98.5 F 102 H 24 84/58 94 19/20 15:45 98 H 24 79/54 94 /19/20 15:30 98 H 24 77/58 94 07/19/20 15:15 100 H 24 84/49 94 /19/20 15:00 97 H 24 84/54 94 /19/20 14:45 97 H 24 80/53 94 /19/20 14:30 98 H 24 75/54 94 /19/20 14:20 98 H 24 80/56 94 07/19/20 14:10 98 H 24 78/53 94 /19/20 14:00 98 H 24 84/58 94 /19/20 13:50 96 H 24 74/54 93 09/06/19 13:40 94 H 24 70/50 92 09/06/19 13:30 96 H 24 79/53 93 09/06/19 13:21 95 H 24 75/41 92 09/06/19 13:11 93 H 24 71/42 92 09/06/19 13:00 97 H 24 82/57 93 09/06/19 12:51 97 H 24 82/51 92 09/06/19 12:41 99 H 24 84/58 92 09/06/19 12:21 103 H 24 90/75 93 09/06/19 12:19 95.6 F L 09/06/19 12:00 109 H 24 90/68 93 09/06/19 11:51 105 H 24 85/54 94 09/06/19 11:45 91 H 24 85/54 94 09/06/19 11:41 90 24 83/56 94 09/06/19 11:35 90 24 83/56 94 09/06/19 11:30 90 24 83/56 94 09/06/19 11:25 90 24 85/54 94 09/06/19 11:21 89 24 87/59 94 09/06/19 11:15 89 24 87/59 94 09/06/19 11:11 88 24 78/52 94 09/06/19 11:05 88 24 78/52 94 09/06/19 11:00 91 H 24 78/52 94 09/06/19 10:55 88 24 85/54 93 09/06/19 10:51 88 24 85/54 93 09/06/19 10:45 87 24 85/54 93 09/06/19 10:41 86 24 82/54 93 09/06/19 10:35 86 24 82/54 93 09/06/19 10:30 86 24 82/54 94 09/06/19 10:25 85 24 78/56 94 09/06/19 10:21 85 24 78/56 94 - Physical Examination General: Other (intubated on the vent) Cardiac: Positive: Tachycardia - Labs and Meds Cardiac Enzymes 09/07/19 Range/Units 04:34 AST 712 H (5-40) units/L CBC 09/07/19 Range/Units 04:34 WBC 18.3 H (4.5-11.0) K/mm3 RBC 5.63 H (3.65-5.03) M/mm3 Hgb 14.5 (11.8-15.2) gm/dl Hct 46.2 H D (35.5-45.6) % Plt Count 200 (140-440) K/mm3 Comprehensive Metabolic Panel 09/07/19 Range/Units 04:34 Sodium 149 H (137-145) mmol/L Potassium 4.9 (3.6-5.0) mmol/L Chloride 105.2 (98-107) mmol/L Carbon Dioxide 27 (22-30) mmol/L BUN 83 H (9-20) mg/dL Creatinine 4.4 H (0.8-1.5) mg/dL Glucose 174 H (75-100) mg/dL Calcium 8.3 L (8.4-10.2) mg/dL AST 712 H (5-40) units/L ALT 1183 H (7-56) units/L Alkaline Phosphatase 141 H (35-129) units/L Total Protein 5.8 L (6.3-8.2) g/dL Albumin 1.9 L (3.9-5) g/dL Past History Past Medical History: atrial fib, heart failure Medications and Allergies Allergies Allergy/AdvReac Type Severity Reaction Status Date / Time No Known Allergies Allergy Unverified 09/02/19 05:22 Home Medications Medication Instructions Recorded Confirmed Last Taken Type Amiodarone [Cordarone 200 MG TAB] 200 mg PO DAILY 09/03/19 09/03/19 Unknown History Apixaban [Eliquis] 5 mg PO DAILY 09/03/19 09/03/19 Unknown History Finasteride 5 mg PO DAILY 09/03/19 09/03/19 Unknown History Furosemide [Lasix TAB] 20 mg PO DAILY 09/03/19 09/03/19 Unknown History Metoprolol Xl [Metoprolol 50 mg PO DAILY 09/03/19 09/03/19 Unknown History SUCCINATE ER TAB] Sertraline [Zoloft] 50 mg PO QDAY 09/03/19 09/03/19 Unknown History lisinopriL [Zestril TAB] 10 mg PO DAILY 09/03/19 09/03/19 Unknown History Active Meds: Active Medications Acetaminophen (Tylenol) 650 mg PO Q4H PRN PRN Reason: Pain MILD(1-3)/Fever >100.5/[employer] Last Admin: 09/07/19 21:26 Dose: 650 mg Documented by: Amiodarone HCl (Cordarone) 200 mg PO BID [facility] Last Admin: 09/08/19 09:19 Dose: 200 mg Documented by: Apixaban (Eliquis) 5 mg PO DAILY [facility]AR; Protocol Last Admin: 09/08/19 09:19 Dose: 5 mg Documented by: Famotidine (Pepcid) 20 mg IV DAILY [facility] Last Admin: 09/08/19 09:19 Dose: 20 mg Documented by: Finasteride (Proscar) 5 mg PO DAILY [facility] Last Admin: 09/08/19 09:19 Dose: 5 mg Documented by: Hydrocortisone Sodium Succinate (Solu-Cortef) 100 mg IV Q8HR [facility] Last Admin: 09/08/19 06:16 Dose: 100 mg Documented by: Norepinephrine 8 mg/ Sodium (Chloride) 250 mls @ 3.75 mls/hr IV TITR [facility]; Protocol Last Admin: 09/08/19 10:30 Dose: 24 mcg/min, 45 mls/hr Documented by: Epinephrine 16 mg/ Sodium (Chloride) 250 mls @ 1.875 mls/hr IV TITR [facility]AR; Protocol Last Titration: 09/08/19 11:54 Dose: 0 mcg/min, 0 mls/hr Documented by: Dopamine HCl/Dextrose (Intropin Drip 800 Mg/D5w 250 Ml) 800 mg in 250 mls @ 2.739 mls/hr IV TITR [facility]AR; Protocol Last Titration: 09/06/19 22:43 Dose: 0 mcg/kg/min, 0 mls/hr Documented by: Phenylephrine HCl 100 mg/ (Sodium Chloride) 100 mls @ 3 mls/hr IV TITR [facility]AR; Protocol Last Admin: 09/08/19 04:26 Dose: 100 mcg/min, 6 mls/hr Documented by: Insulin Human Lispro (Humalog) 0 unit SUB-Q Q6HR [facility]AR; Protocol Last Admin: 09/08/19 06:22 Dose: 3 unit Documented by: Ondansetron HCl (Zofran) 4 mg IV Q8H PRN PRN Reason: Nausea And Vomiting Last Admin: 09/04/19 13:05 Dose: 4 mg Documented by: Sodium Chloride (Sodium Chloride Flush Syringe 10 Ml) 10 ml IV BID [facility] Last Admin: 09/08/19 09:20 Dose: 10 ml Documented by: Sodium Chloride (Sodium Chloride Flush Syringe 10 Ml) 10 ml IV PRN PRN PRN Reason: LINE FLUSH Physical Examination - Vital Signs Vital Signs: Vital Signs Pulse Ox 97 09/02/19 05:05 - Constitutional General appearance: comfortable - Cardiovascular Extremities: Present: no peripheral edema bilatateraly - Gastrointestinal Gastrointestinal: Present: normoactive bowel sounds - Neurologic Cranial nerve examination: other (pupil poorly reactive no EOM, no corneal reflexes no spontaneous breathing) Results - Laboratory Findings CBC and BMP: 09/07/19 04:34 09/07/19 04:34 Abnormal Lab Findings: Abnormal Labs 09/02/19 09/02/19 09/02/19 05:30 07:23 07:23 WBC RBC Hgb 10.7 L Hct 33.8 L MCV 82 L MCH 26 L MCHC RDW 18.1 H Lymph % (Auto) 9.3 L Lymph # 0.5 L Seg Neutrophils % 83.1 H Seg Neuts % (Manual) Lymphocytes % (Manual) Seg Neutrophils # Man Lymphocytes # (Manual) Monocytes # (Manual) PT INR D-Dimer ABG pH ABG pO2 ABG HCO3 19.2 L ABG O2 Saturation ABG Base Excess -4.4 L ABG Hemoglobin 11.3 L Oxyhemoglobin 94.5 L Sodium Potassium Carbon Dioxide 21 L BUN 25 H Creatinine Glucose 119 H POC Glucose Hemoglobin A1c Calcium Phosphorus Total Bilirubin Direct Bilirubin AST ALT Alkaline Phosphatase Lactate Dehydrogenase C-Reactive Protein NT-Pro-B Natriuret Pep Total Protein Albumin 09/02/19 09/02/19 09/02/19 07:23 07:23 09:33 WBC RBC Hgb Hct MCV MCH MCHC RDW Lymph % (Auto) Lymph # Seg Neutrophils % Seg Neuts % (Manual) Lymphocytes % (Manual) Seg Neutrophils # Man Lymphocytes # (Manual) Monocytes # (Manual) PT 23.0 H INR 2.10 H D-Dimer ABG pH ABG pO2 ABG HCO3 ABG O2 Saturation ABG Base Excess ABG Hemoglobin Oxyhemoglobin Sodium Potassium Carbon Dioxide BUN Creatinine Glucose 123 H POC Glucose Hemoglobin A1c Calcium Phosphorus Total Bilirubin 3.00 H Direct Bilirubin 0.9 H AST 43 H ALT Alkaline Phosphatase Lactate Dehydrogenase 252 H C-Reactive Protein 3.80 H NT-Pro-B Natriuret Pep 67374 H Total Protein Albumin 3.0 L 09/02/19 09/03/19 09/03/19 Unknown 00:47 04:25 WBC RBC Hgb 11.2 L Hct MCV 83 L MCH 26 L MCHC 31 L RDW 17.9 H Lymph % (Auto) 8.3 L Lymph # 0.4 L Seg Neutrophils % 89.1 H Seg Neuts % (Manual) Lymphocytes % (Manual) Seg Neutrophils # Man Lymphocytes # (Manual) Monocytes # (Manual) PT INR D-Dimer 689.74 H ABG pH ABG pO2 ABG HCO3 ABG O2 Saturation ABG Base Excess ABG Hemoglobin Oxyhemoglobin Sodium 135 L Potassium Carbon Dioxide 20 L BUN 27 H Creatinine Glucose 157 H POC Glucose Hemoglobin A1c Calcium Phosphorus Total Bilirubin 1.70 H Direct Bilirubin AST ALT Alkaline Phosphatase Lactate Dehydrogenase C-Reactive Protein NT-Pro-B Natriuret Pep Total Protein Albumin 2.5 L 09/03/19 09/03/19 09/03/19 04:25 09:46 16:15 WBC RBC Hgb Hct MCV MCH MCHC RDW Lymph % (Auto) Lymph # Seg Neutrophils % Seg Neuts % (Manual) Lymphocytes % (Manual) Seg Neutrophils # Man Lymphocytes # (Manual) Monocytes # (Manual) PT INR D-Dimer ABG pH ABG pO2 ABG HCO3 ABG O2 Saturation ABG Base Excess ABG Hemoglobin Oxyhemoglobin Sodium Potassium Carbon Dioxide BUN Creatinine Glucose POC Glucose 125 H 173 H Hemoglobin A1c 6.2 H Calcium Phosphorus Total Bilirubin Direct Bilirubin AST ALT Alkaline Phosphatase Lactate Dehydrogenase C-Reactive Protein NT-Pro-B Natriuret Pep Total Protein Albumin 09/03/19 09/04/19 09/04/19 22:17 03:26 03:26 WBC 11.3 H RBC Hgb 11.3 L Hct MCV 82 L MCH 26 L MCHC RDW 18.4 H Lymph % (Auto) Lymph # Seg Neutrophils % Seg Neuts % (Manual) 90.0 H Lymphocytes % (Manual) 4.0 L Seg Neutrophils # Man 10.2 H Lymphocytes # (Manual) 0.5 L Monocytes # (Manual) PT INR D-Dimer ABG pH ABG pO2 ABG HCO3 ABG O2 Saturation ABG Base Excess ABG Hemoglobin Oxyhemoglobin Sodium Potassium Carbon Dioxide 21 L BUN 38 H Creatinine Glucose 126 H POC Glucose 238 H Hemoglobin A1c Calcium Phosphorus Total Bilirubin Direct Bilirubin AST ALT Alkaline Phosphatase Lactate Dehydrogenase C-Reactive Protein NT-Pro-B Natriuret Pep Total Protein Albumin 09/04/19 09/04/19 09/04/19 11:08 15:42 21:38 WBC RBC Hgb Hct MCV MCH MCHC RDW Lymph % (Auto) Lymph # Seg Neutrophils % Seg Neuts % (Manual) Lymphocytes % (Manual) Seg Neutrophils # Man Lymphocytes # (Manual) Monocytes # (Manual) PT INR D-Dimer ABG pH 7.345 L 6.947 L* 7.030 L* ABG pO2 106.7 H 31.4 L* 91.1 H ABG HCO3 18.2 L 16.9 L 14.3 L ABG O2 Saturation 26.3 L 92.0 L ABG Base Excess -6.7 L -15.8 L -16.3 L ABG Hemoglobin 12.0 L 11.6 L 11.9 L Oxyhemoglobin 25.6 L 89.5 L Sodium Potassium Carbon Dioxide BUN Creatinine Glucose POC Glucose Hemoglobin A1c Calcium Phosphorus Total Bilirubin Direct Bilirubin AST ALT Alkaline Phosphatase Lactate Dehydrogenase C-Reactive Protein NT-Pro-B Natriuret Pep Total Protein Albumin 09/04/19 09/05/19 09/05/19 23:46 00:39 04:02 WBC RBC Hgb Hct MCV MCH MCHC RDW Lymph % (Auto) Lymph # Seg Neutrophils % Seg Neuts % (Manual) Lymphocytes % (Manual) Seg Neutrophils # Man Lymphocytes # (Manual) Monocytes # (Manual) PT INR D-Dimer ABG pH ABG pO2 ABG HCO3 ABG O2 Saturation ABG Base Excess ABG Hemoglobin Oxyhemoglobin Sodium Potassium 5.7 H Carbon Dioxide 19 L BUN 53 H Creatinine 2.6 H D Glucose 109 H POC Glucose < 40 L 111 H Hemoglobin A1c Calcium 8.3 L D Phosphorus Total Bilirubin 2.40 H Direct Bilirubin AST 2750 H ALT 1466 H Alkaline Phosphatase 134 H Lactate Dehydrogenase C-Reactive Protein NT-Pro-B Natriuret Pep Total Protein Albumin 2.7 L 09/05/19 09/05/19 09/05/19 05:45 08:58 18:55 WBC RBC Hgb Hct MCV MCH MCHC RDW Lymph % (Auto) Lymph # Seg Neutrophils % Seg Neuts % (Manual) Lymphocytes % (Manual) Seg Neutrophils # Man Lymphocytes # (Manual) Monocytes # (Manual) PT INR D-Dimer ABG pH 7.154 L* ABG pO2 79.3 L ABG HCO3 ABG O2 Saturation ABG Base Excess -8.3 L ABG Hemoglobin 11.7 L Oxyhemoglobin 92.7 L Sodium Potassium Carbon Dioxide BUN Creatinine Glucose POC Glucose 123 H 181 H Hemoglobin A1c Calcium Phosphorus Total Bilirubin Direct Bilirubin AST ALT Alkaline Phosphatase Lactate Dehydrogenase C-Reactive Protein NT-Pro-B Natriuret Pep Total Protein Albumin 09/06/19 09/06/19 09/06/19 02:18 04:00 04:00 WBC 14.7 H RBC Hgb Hct MCV 83 L MCH 26 L MCHC 31 L RDW 18.7 H Lymph % (Auto) Lymph # Seg Neutrophils % Seg Neuts % (Manual) 91.0 H Lymphocytes % (Manual) 3.0 L Seg Neutrophils # Man 13.4 H Lymphocytes # (Manual) 0.4 L Monocytes # (Manual) 0.9 H PT INR D-Dimer ABG pH ABG pO2 ABG HCO3 ABG O2 Saturation ABG Base Excess ABG Hemoglobin Oxyhemoglobin Sodium Potassium Carbon Dioxide BUN 74 H Creatinine 3.7 H Glucose 153 H POC Glucose 165 H Hemoglobin A1c Calcium 7.6 L Phosphorus 5.80 H Total Bilirubin 1.70 H Direct Bilirubin AST 1929 H ALT 1665 H Alkaline Phosphatase 135 H Lactate Dehydrogenase C-Reactive Protein NT-Pro-B Natriuret Pep Total Protein 6.0 L Albumin 2.1 L 09/06/19 09/06/19 09/06/19 04:36 10:58 16:03 WBC RBC Hgb Hct MCV MCH MCHC RDW Lymph % (Auto) Lymph # Seg Neutrophils % Seg Neuts % (Manual) Lymphocytes % (Manual) Seg Neutrophils # Man Lymphocytes # (Manual) Monocytes # (Manual) PT INR D-Dimer ABG pH 7.306 L ABG pO2 ABG HCO3 ABG O2 Saturation ABG Base Excess -3.7 L ABG Hemoglobin 12.8 L Oxyhemoglobin 94.6 L Sodium Potassium Carbon Dioxide BUN Creatinine Glucose POC Glucose 144 H 109 H Hemoglobin A1c Calcium Phosphorus Total Bilirubin Direct Bilirubin AST ALT Alkaline Phosphatase Lactate Dehydrogenase C-Reactive Protein NT-Pro-B Natriuret Pep Total Protein Albumin 09/07/19 09/07/19 09/07/19 03:47 04:34 04:34 WBC 18.3 H RBC 5.63 H Hgb Hct 46.2 H D MCV 82 L MCH 26 L MCHC 31 L RDW 19.1 H Lymph % (Auto) Lymph # Seg Neutrophils % Seg Neuts % (Manual) 93.0 H Lymphocytes % (Manual) 2.0 L Seg Neutrophils # Man 17.0 H Lymphocytes # (Manual) 0.4 L Monocytes # (Manual) 0.9 H PT INR D-Dimer ABG pH ABG pO2 107.0 H ABG HCO3 28.6 H ABG O2 Saturation ABG Base Excess ABG Hemoglobin Oxyhemoglobin Sodium 149 H Potassium Carbon Dioxide BUN 83 H Creatinine 4.4 H Glucose 174 H POC Glucose Hemoglobin A1c Calcium 8.3 L Phosphorus 6.10 H Total Bilirubin 1.80 H Direct Bilirubin AST 712 H ALT 1183 H Alkaline Phosphatase 141 H Lactate Dehydrogenase C-Reactive Protein NT-Pro-B Natriuret Pep Total Protein 5.8 L Albumin 1.9 L 09/07/19 09/07/19 09/07/19 08:38 12:33 16:34 WBC RBC Hgb Hct MCV MCH MCHC RDW Lymph % (Auto) Lymph # Seg Neutrophils % Seg Neuts % (Manual) Lymphocytes % (Manual) Seg Neutrophils # Man Lymphocytes # (Manual) Monocytes # (Manual) PT INR D-Dimer ABG pH ABG pO2 ABG HCO3 ABG O2 Saturation ABG Base Excess ABG Hemoglobin Oxyhemoglobin Sodium Potassium Carbon Dioxide BUN Creatinine Glucose POC Glucose 166 H 178 H 166 H Hemoglobin A1c Calcium Phosphorus Total Bilirubin Direct Bilirubin AST ALT Alkaline Phosphatase Lactate Dehydrogenase C-Reactive Protein NT-Pro-B Natriuret Pep Total Protein Albumin 09/08/19 04:30 WBC RBC Hgb Hct MCV MCH MCHC RDW Lymph % (Auto) Lymph # Seg Neutrophils % Seg Neuts % (Manual) Lymphocytes % (Manual) Seg Neutrophils # Man Lymphocytes # (Manual) Monocytes # (Manual) PT INR D-Dimer ABG pH ABG pO2 ABG HCO3 29.7 H ABG O2 Saturation ABG Base Excess 4.5 H ABG Hemoglobin Oxyhemoglobin 94.1 L Sodium Potassium Carbon Dioxide BUN Creatinine Glucose POC Glucose Hemoglobin A1c Calcium Phosphorus Total Bilirubin Direct Bilirubin AST ALT Alkaline Phosphatase Lactate Dehydrogenase C-Reactive Protein NT-Pro-B Natriuret Pep Total Protein Albumin Assessment and Plan 1-69Years old male with multiple complicated medical hx he is with low BP p resented in cardiac arrest resucitated he is currently on multiple pressor agent he is on no sedative with no response to all measure , with falling organs kidney liver and heart . 2- over alll prognosis is poor 3- Consider Brain MRI if stable as well as EEG !!! 4- Correct electrolytes abnormalities if possible ? will sign off
[2019-09-08 14:35] VITALS: BP 133/89
--- NOTE | 2019-09-08 15:26 | Discharge Summary ---
Providers - Providers Date of Admission: 09/02/19 13:27 Date of discharge: 09/08/19 Attending physician: TRE LOCK 09/04/19 08:24 Consult to Physician [CONS] Routine Comment: Consulting Provider: MIGDALIA GARZA Physician Instructions: Reason For Exam: sustained VT on amio drip/CMP/EF15-20%/ICD 09/04/19 09:47 Consult to Physician [CONS] Urgent Comment: Consulting Provider: CHERI JACOBO Physician Instructions: Reason For Exam: Acute hypoxic respiratory failure/COPD exacerbatio 09/06/19 19:38 Consult to Physician [CONS] Routine Comment: Consulting Provider: BAYRON CHAUDHRY Physician Instructions: Reason For Exam: Acute kidney injury/status post cardiac arrest 09/07/19 11:07 Consult to Physician [CONS] Urgent Comment: Consulting Provider: BHAVIN CORNEJO Physician Instructions: Reason For Exam: Post cardiac arrest, anoxia, vegatative state Primary care physician: PHYSICIAN ASSISTANT Hospitalization Reason for admission: Acute hypoxic respiratory failure/cardiac arrest Condition: Critical Pertinent studies: chest x-ray CT chest Echocardiogram Chest x-ray Hospital course: 69-year-old man with history of COPD cardiomyopathy, AICD, severe congestive heart failure, COPD on home oxygen Was admitted through emergency room with worsening shortness of breath and cough Initial evaluation is consistent with acute on chronic systolic congestive heart failure acute on chronic COPD exacerbation Patient was intubated requiring ventilatory support, patient later had multiple episodes of cardiac arrest requiring CPR per ACLS protocol Severe cardiogenic shock requiring multiple pressors, patient continued to deteriorate had multiorgan involvement and failure Discussed with family family wanted full CODE STATUS, pulmonary critical cardiology nephrology evaluated the patient and medications optimized Today patient remains critically ill on vent, family requested in case management has set up transfer to inpatient hospice Patient is critically ill with poor prognosis at the time of discharge and transfer Family aware and agreed with the discharge plan Discharge diagnosis and management -COVID 19 test negative x2 --Cardiac arrest /multiple events ; status post CPR per ACLS protocol, check code sheets. On ventilatory support, cardiology following. --Possible anoxic brain injury; Supportive care, consider neurology consult --Acute hypoxic respiratory failure: Intubated on vent Multifactorial, CHF, COPD exacerbation, Cardiac arrest Continue ventilatory support, wean as tolerated and extubate --Febrile illness; Patient recently completed 5 days of Rocephin, cultures negative to date probably central fever. Possibly central fever due to anoxic brain injury Antibiotics, repeat urine and blood cultures --Severe cardiogenic shock; on multiple pressors. Closely monitor --Acute on chronic systolic CHF, EF 15 to 20% Current Visit: Yes Status: Chronic Continue Lasix input output monitoring,, low-sodium diet Fluid restriction, echocardiogram for LV function ejection fraction. --s/p Sustained VT; Patient was asymptomatic ICD in place, cardiology following --Acute exacerbation of end-stage COPD ; Current Visit: Yes Status: Acute Duo nebs and steroids and IV antibiotics Ventilatory support, pulmonary critical following --Acute kidney injury; secondary to ATN Worsening renal function gentle hydration, nephrology consult --Hyperkalemia; Kayexalate, resolved --Shock liver; transaminases in thousands Due to severe hypotension and cardiac arrest AST 2750, ALT 1466 closely monitor, GI consult if needed. --History of A. fib; continue beta-blockers, amiodarone chronic anticoagulation with Eliquis --Severe cardiomyopathy/ICD Interrogation as needed, cardiology consulted, -- Bilateral pneumonia Current Visit: Yes Status: Acute . Continue IV Rocephin and Zithromax Ventilatory support -- h/o Hypertension Current Visit: Yes Status: Chronic Patient is hypotensive and in shock Requiring pressors, hold antihypertensive medications --Type 2 diabetes mellitus Current Visit: Yes Status: Chronic Accu-Cheks adding scale coverage ADA diet insulin as needed, A1c; 6.2 --Coronary artery disease Current Visit: Yes Status: Chronic Continue current cardiac medications --DVT prophylaxis Current Visit: Yes Status: Acute. On Eliquis --Full code: Status Patient is being transferred to inpatient hospice house for further management Disposition: [facility] ([facility]) Time spent for discharge: 35 min Core Measure Documentation - Palliative Care Palliative Care/ Comfort Measures: Not Applicable - Core Measures Any of the following diagnoses?: heart failure - Heart Failure Discharge Requirements LATISHA/ARB for LVSD if EF <40%: No Reason for no LATISHA/ARB: Renal impairment Beta david at discharge: No Reason for no beta david on DC: Hypotension Exam - Constitutional Vitals: Temp Pulse Resp BP Pulse Ox 98.9 F 125 H 24 133/89 96 09/08/19 12:00 09/08/19 14:31 09/08/19 14:31 09/08/19 14:31 09/08/19 14:31 General appearance: Present: mild distress, well-nourished, other (Intubated on vent) - EENT Eyes: Present: PERRL, EOM intact - Neck Neck: Present: supple, normal ROM - Respiratory Respiratory effort: normal Respiratory: bilateral: diminished, rales, rhonchi, negative: wheezing - Cardiovascular Rhythm: regular Heart Sounds: Present: S1 & S2 - Extremities Extremities: no ischemia, No edema - Abdominal General gastrointestinal: Present: soft, non-tender, non-distended, normal bowel sounds - Integumentary Integumentary: Present: clear, warm - Musculoskeletal Musculoskeletal: strength equal bilaterally - Psychiatric Psychiatric: appropriate mood/affect, cooperative - Neurologic Neurologic: moves all extremities Plan Activity: advance as tolerated Diet: other (Tube feeding per protocol) Additional Instructions: Patient is discharged to hospice house under the care of medical records manager for further evaluation management Follow up with: PRIMARY MD JASON [Primary Care Provider] - 3-5 Days MIGDALIA GARZA MD [Staff Physician] - 7 Days CHERI JACOBO MD [Staff Physician] - 7 Days
--- NOTE | 2019-09-08 15:53 | Progress Note ---
Subjective Principal diagnosis: Cardiac arrest Interval history: Patient was seen today for follow-up of multiple renal related issues around 12:45 in the afternoon Patient is critically ill currently intubated and unable to provide any history Events of this hospitalization noted patient is doing overall very poorly Events of 24 hours vitals labs intake output medications were reviewed Past medical history: Reviewed Family history: Reviewed Social history: Reviewed Allergies: Reviewed Physical examination: Vitals: Reviewed HEENT: No pallor or icterus oral mucosa moist intubated and unresponsive Neck: Supple no JVD no thyromegaly Chest: Bilateral clear to auscultation anteriorly Heart: Regular rate and rhythm S1-S2 heard no S3-S4 Abdomen: Soft nontender no voluntary guarding rigidity rebound Extremity: Dry skin less than 1+ peripheral edema Labs and x-rays: Reviewed from today Assessment and plan Acute kidney injury in a patient who is 69-year-old with multiple underlying risk factors for chronic kidney disease admitted with multiple comorbidities noted to have worsening renal function current creatinine as of yesterday was 4.4 bicarbonate 27 potassium 4.9 pending labs today creatinine was 1.3 on September 04, 2019 likely etiology is quite likely acute tubular necrosis resulting from poor ejection fraction, prognosis very poor he is not a suitable candidate for renal replacement therapy/ Should be considered for palliative care hospice Severe cardiomyopathy ejection fraction less than 20% estimated about 15 admitted with worsening of congestive heart failure, also has history of atrial fibrillation which may be further compromising his effective ejection fraction time to time Has had defibrillator placement in the past Creatinine in the previous admission was 1.2 Has had multiple episodes of cardiac arrest requiring CPR currently on vasopressors Multiple underlying chronic illnesses including end-stage COPD, severe cardiogenic shock respiratory failure intubated possible brain injury, febrile illness Prognosis appears to be extremely poor mortality risk is very high/ seems to be hospice appropriate in my opinion time spent in critical care setting 33 minutes We'll continue to follow and make recommendation for renal standpoint Objective - Vital Signs Vital signs: Vital Signs - 12hr 09/08/19 09/08/19 09/08/19 04:00 04:01 04:15 Temperature 99.6 F Pulse Rate 109 H 108 H Pulse Rate [ 115 H From Monitor] Respiratory 23 24 24 Rate Blood Pressure 104/70 105/85 O2 Sat by Pulse 95 97 97 Oximetry 09/08/19 09/08/19 09/08/19 04:24 04:30 04:45 Temperature 100.9 F H Pulse Rate 117 H 108 H Pulse Rate [ From Monitor] Respiratory 24 24 Rate Blood Pressure 106/74 105/61 O2 Sat by Pulse 97 97 Oximetry 09/08/19 09/08/19 09/08/19 05:00 05:01 05:15 Temperature Pulse Rate 123 H 106 H 127 H Pulse Rate [ From Monitor] Respiratory 24 24 Rate Blood Pressure 96/69 96/69 O2 Sat by Pulse 97 97 Oximetry 09/08/19 09/08/19 09/08/19 05:30 05:45 06:01 Temperature Pulse Rate 111 H 125 H 125 H Pulse Rate [ From Monitor] Respiratory 24 24 24 Rate Blood Pressure 88/61 88/61 102/67 O2 Sat by Pulse 97 97 97 Oximetry 09/08/19 09/08/19 09/08/19 06:15 06:31 06:45 Temperature Pulse Rate 116 H 118 H 112 H Pulse Rate [ From Monitor] Respiratory 24 24 24 Rate Blood Pressure 104/61 110/67 113/66 O2 Sat by Pulse 97 97 97 Oximetry 09/08/19 09/08/19 09/08/19 07:00 07:15 07:30 Temperature Pulse Rate 110 H 118 H 122 H Pulse Rate [ From Monitor] Respiratory 24 24 24 Rate Blood Pressure 113/74 119/62 110/70 O2 Sat by Pulse 97 96 97 Oximetry 09/08/19 09/08/19 09/08/19 07:45 08:00 08:01 Temperature 99.5 F Pulse Rate 113 H 106 H Pulse Rate [ 114 H From Monitor] Respiratory 24 24 24 Rate Blood Pressure 108/69 115/79 O2 Sat by Pulse 96 95 96 Oximetry 09/08/19 09/08/19 09/08/19 08:03 08:15 08:30 Temperature Pulse Rate 109 H 114 H 120 H Pulse Rate [ From Monitor] Respiratory 24 24 Rate Blood Pressure 115/79 114/74 119/84 O2 Sat by Pulse 96 95 94 Oximetry 09/08/19 09/08/19 09/08/19 08:45 09:00 09:01 Temperature Pulse Rate 112 H 121 H 110 H Pulse Rate [ From Monitor] Respiratory 24 24 Rate Blood Pressure 129/101 134/82 O2 Sat by Pulse 95 95 Oximetry 09/08/19 09/08/19 09/08/19 09:15 09:31 09:45 Temperature Pulse Rate 125 H 126 H 138 H Pulse Rate [ From Monitor] Respiratory 24 24 24 Rate Blood Pressure 134/85 136/81 136/81 O2 Sat by Pulse 94 95 95 Oximetry 09/08/19 09/08/19 09/08/19 10:00 10:15 10:31 Temperature Pulse Rate 128 H 118 H 117 H Pulse Rate [ From Monitor] Respiratory 24 24 24 Rate Blood Pressure 115/96 128/78 126/83 O2 Sat by Pulse 94 95 95 Oximetry 09/08/19 09/08/19 09/08/19 10:45 11:01 11:15 Temperature Pulse Rate 121 H 125 H 124 H Pulse Rate [ From Monitor] Respiratory 24 24 24 Rate Blood Pressure 126/83 123/89 123/89 O2 Sat by Pulse 95 94 95 Oximetry 09/08/19 09/08/19 09/08/19 11:31 11:45 12:00 Temperature 98.9 F Pulse Rate 119 H 125 H 125 H Pulse Rate [ 106 H From Monitor] Respiratory 24 24 24 Rate Blood Pressure 121/85 121/85 110/81 O2 Sat by Pulse 97 96 97 Oximetry 09/08/19 09/08/19 09/08/19 12:11 12:15 12:31 Temperature Pulse Rate 110 H 109 H 118 H Pulse Rate [ From Monitor] Respiratory 24 24 Rate Blood Pressure 110/81 110/81 120/80 O2 Sat by Pulse 97 97 97 Oximetry 09/08/19 09/08/19 09/08/19 12:45 13:00 13:01 Temperature Pulse Rate 108 H 116 H 102 H Pulse Rate [ From Monitor] Respiratory 24 24 Rate Blood Pressure 102/76 112/79 O2 Sat by Pulse 97 97 Oximetry 09/08/19 09/08/19 09/08/19 13:15 13:31 13:45 Temperature Pulse Rate 98 H 114 H 113 H Pulse Rate [ From Monitor] Respiratory 24 24 24 Rate Blood Pressure 112/79 117/69 117/69 O2 Sat by Pulse 97 97 97 Oximetry 09/08/19 09/08/19 09/08/19 14:00 14:15 14:31 Temperature Pulse Rate 119 H 117 H 125 H Pulse Rate [ From Monitor] Respiratory 24 24 24 Rate Blood Pressure 133/96 133/96 133/89 O2 Sat by Pulse 96 96 96 Oximetry - Lab 09/07/19 04:34 09/07/19 04:34 Most recent lab results ABG pH 7.428 pH Units (7.350-7.450) 09/08/19 04:30 ABG pCO2 46.0 mm Hg 09/08/19 04:30 ABG pO2 81.2 mm Hg (80.0-90.0) 09/08/19 04:30 ABG HCO3 29.7 mmol/L (20.0-26.0) H 09/08/19 04:30 ABG O2 Saturation 96.6 % (95.0-99.0) 09/08/19 04:30 Calcium 8.3 mg/dL (8.4-10.2) L 09/07/19 04:34 Phosphorus 6.10 mg/dL (2.5-4.5) H 09/07/19 04:34 Magnesium 2.20 mg/dL (1.7-2.3) 09/07/19 04:34 Medications & Allergies - Medications Allergies/Adverse Reactions: Allergies No Known Allergies Allergy (Unverified 09/02/19 05:22) Home Medications: Home Medications Medication Instructions Recorded Confirmed Last Taken Type Apixaban [Eliquis] 5 mg PO DAILY 09/03/19 09/03/19 Unknown History Finasteride 5 mg PO DAILY 09/03/19 09/03/19 Unknown History Furosemide [Lasix TAB] 20 mg PO DAILY 09/03/19 09/03/19 Unknown History Sertraline [Zoloft] 50 mg PO QDAY 09/03/19 09/03/19 Unknown History lisinopriL [Zestril TAB] 10 mg PO DAILY 09/03/19 09/03/19 Unknown History Acetaminophen [Acetaminophen TAB] 650 mg PO Q4H PRN tablet 09/08/19 Unknown Rx Amiodarone [Cordarone 200 MG TAB] 200 mg PO BID tablet 09/08/19 Unknown Rx Hydrocortisone Sod Succ 100 mg IV Q8HR vial 09/08/19 Unknown Rx [Solu-Cortef] Lispro Insulin [HumaLOG] 0 unit SUB-Q Q6HR units 09/08/19 Unknown Rx Active Medications: Generic Name Dose Route Start Last Admin Trade Name Freq PRN Reason Stop Dose Admin Acetaminophen 650 mg 09/03/19 00:06 09/07/19 21:26 Tylenol PO 650 mg Q4H PRN Administration Pain MILD(1-3)/Fever >100.5/BLANKENSHIP Amiodarone HCl 200 mg 09/05/19 10:00 09/08/19 09:19 Cordarone PO 200 mg BID BANDAR Administration Apixaban 5 mg 09/04/19 10:00 09/08/19 09:19 Eliquis PO 5 mg DAILY BANDAR Administration Protocol Famotidine 20 mg 09/06/19 11:00 09/08/19 09:19 Pepcid IV 20 mg DAILY BANDAR Administration Finasteride 5 mg 09/04/19 10:00 09/08/19 09:19 Proscar PO 5 mg DAILY BANDAR Administration Hydrocortisone Sodium Succinate 100 mg 09/06/19 14:00 09/08/19 13:19 Solu-Cortef IV 100 mg Q8HR BANDAR Administration Norepinephrine 8 mg/ Sodium 250 mls @ 3.75 mls/hr 09/04/19 23:00 09/08/19 14:02 Chloride IV 22 mcg/min TITR BANDAR 41.25 mls/hr Titration Protocol 2 MCG/MIN Epinephrine 16 mg/ Sodium 250 mls @ 1.875 mls/hr 09/04/19 23:45 09/08/19 11:54 Chloride IV 0 mcg/min TITR BANDAR 0 mls/hr Titration Protocol 2 MCG/MIN Dopamine HCl/Dextrose 800 mg in 250 mls @ 2.739 mls/hr 09/05/19 01:00 09/06/19 22:43 Intropin Drip 800 Mg/D5w 250 Ml IV 0 mcg/kg/min TITR BANDAR 0 mls/hr Titration Protocol 2 MCG/KG/MIN Phenylephrine HCl 100 mg/ 100 mls @ 3 mls/hr 09/06/19 23:00 09/08/19 04:26 Sodium Chloride IV 100 mcg/min TITR BANDAR 6 mls/hr Administration Protocol 50 MCG/MIN Insulin Human Lispro 0 unit 09/07/19 12:00 09/08/19 12:31 Humalog SUB-Q 3 unit Q6HR BANDAR Administration Protocol Ondansetron HCl 4 mg 09/03/19 00:06 09/04/19 13:05 Zofran IV 4 mg Q8H PRN Administration Nausea And Vomiting Sodium Chloride 10 ml 09/03/19 10:00 09/08/19 09:20 Sodium Chloride Flush Syringe 10 Ml IV 10 ml BID BANDAR Administration Sodium Chloride 10 ml 07/16/20 00:06 Sodium Chloride Flush Syringe 10 Ml IV PRN PRN LINE FLUSH
== END 2019-09-08 16:00 | disposition hospice, inpatient (51) | DRG 208 ==
LOC: ED 04:56 → 3A 13:27 → IMCU 09-04 12:31 → CC1 09-04 17:42
PROVIDERS: ADMIT Internal Medicine; ATTEND Internal Medicine
PROC: 4A033R1 Measurement of Arterial Saturation, Peripheral, Percutaneous Approach (ICD-10-PCS; 2019-09-02)
PROC: 0BH17EZ Insertion of Endotracheal Airway into Trachea, Via Natural or Artificial Opening (ICD-10-PCS; principal; 2019-09-04)
PROC: 5A1945Z Respiratory Ventilation, 24-96 Consecutive Hours (ICD-10-PCS; 2019-09-04)
PROC: 5A09357 Assistance with Respiratory Ventilation, Less than 24 Consecutive Hours, Continuous Positive Airway Pressure (ICD-10-PCS; 2019-09-04)
PROC: 5A12012 Performance of Cardiac Output, Single, Manual (ICD-10-PCS; 2019-09-07)
DX: J96.01 Acute respiratory failure with hypoxia (principal); I50.23 Acute on chronic systolic (congestive) heart failure; J18.9 Pneumonia, unspecified organism; R57.0 Cardiogenic shock; N17.0 Acute kidney failure with tubular necrosis; J44.1 Chronic obstructive pulmonary disease with (acute) exacerbation; R65.10 Systemic inflammatory response syndrome (SIRS) of non-infectious origin without acute organ dysfunction; J44.0 Chronic obstructive pulmonary disease with (acute) lower respiratory infection; I42.0 Dilated cardiomyopathy; I47.1 Supraventricular tachycardia; E87.2 Acidosis; G93.1 Anoxic brain damage, not elsewhere classified; Z20.828 Contact with and (suspected) exposure to other viral communicable diseases; E78.00 Pure hypercholesterolemia, unspecified; I48.91 Unspecified atrial fibrillation; I11.0 Hypertensive heart disease with heart failure; I25.10 Atherosclerotic heart disease of native coronary artery without angina pectoris; E87.5 Hyperkalemia; F14.10 Cocaine abuse, uncomplicated; I95.9 Hypotension, unspecified; R79.81 Abnormal blood-gas level; Z79.899 Other long term (current) drug therapy; Z95.0 Presence of cardiac pacemaker; Z87.891 Personal history of nicotine dependence; Z79.4 Long term (current) use of insulin; Z79.84 Long term (current) use of oral hypoglycemic drugs
CPT/HCPCS: 36415; 36600; 71045; 71260; 80048; 80053; 80076; 80307; 82140; 82728; 82803; 82947; 82962; 83036; 83615; 83735; 83880; 84100; 84145; 84439; 84443; 84484; 85007; 85025; 85379; 85610; 85730; 86140; 87040; 87070; 87086; 87205; 93005; 93306; 94002; 94003; G0378; J0171; J0282; J0456; J0696; J1170; J1265; J1650; J1720; J1815; J1940; J2060; J2370; J2405; J2930; J3475; J7030; J7050; J7060; J7120; J8540; Q9967; U0003-CS